=== PATIENT | male | born 1955 | race Caucasian/White ===

== ENCOUNTER 2020-03-01 23:26 | Inpatient (IN) | payer MEDICARE, SELFPAY ==
[2020-03-01 23:42] VITALS: BP 140/90; BP 95/50; PULSE 78; PULSE 99; RESP 24; TEMP 36.9; O2SAT 97
--- NOTE | 2020-03-01 23:59 | ECG_ITS ---
Test Reason : FEVER Blood Pressure : / mmHG Vent. Rate : 075 BPM Atrial Rate : 075 BPM P-R Int : 138 ms QRS Dur : 074 ms QT Int : 366 ms P-R-T Axes : 054 030 046 degrees QTc Int : 408 ms Normal sinus rhythm Nonspecific T wave abnormality Borderline ECG No previous ECGs available Referred By: Generic ED Physician Electronically Signed By:MANUELA HOFFMAN
--- NOTE | 2020-03-01 23:59 | XR_ITS ---
EXAMINATION: XR CHEST CLINICAL INFORMATION: SOB COMPARISON: 07/01/2018 TECHNIQUE: Frontal view of the chest was obtained. FINDINGS: EKG leads over the chest. Cardiac and mediastinal contours are normal. No focal consolidation, pneumothorax, or pleural effusion. Pulmonary vasculature is normal. No acute osseous findings. XR/XR chest 1V IMPRESSION: No acute pulmonary findings.
[2020-03-02] VITALS (11 sets, daily range): BP systolic 90–119; BP diastolic 54–68; PULSE 60–89; RESP 16–24; TEMP 36.7–37.6; O2SAT 96–100; BMI 28.3
--- NOTE | 2020-03-02 00:09 | PC.NURSE ---
Pt changed into hospital gown. EKG obtained by chief technical officer. All labs including BCX x 2 obtained and sent. CXR at bedside. Awaiting primary MD zarate.
[2020-03-02 00:15] LABS: Mean Corpuscular Hemoglobin 32.7 pg (27.0-33.0); Mean Platelet Volume 11.3 fL (9.4-12.4); PLT CLUMP 1
[2020-03-02 00:17] LABS: Hematocrit 40.4 % (42-52); Hemoglobin 14.4 g/dl (14.0-18.0); Mean Corpuscular HGB Conc 35.6 g/dl (31.0-36.0); Mean Corpuscular Volume 91.8 fL (80-98); Platelet Count 69 X10*3/uL (160-400); Red Cell Distribution Width 13.9 % (11.0-16.0); White Blood Count 13.8 X10*3/uL (4.8-10.8)
--- NOTE | 2020-03-02 00:28 | PC.NURSE ---
at bedside for primary eval.
--- NOTE | 2020-03-02 00:36 | ED_ITS ---
HPI - SOB/Dyspnea General Chief Complaint: Dyspnea Stated Complaint: sob Time Seen by Provider: 03/02/20 00:17 Source: patient Mode of arrival: ambulatory Limitations: no limitations History of Present Illness HPI Narrative: 64-year-old male who presents to the emergency department for evaluation shortness of breath, dyspnea exertion, fatigue and cough. The patient states he has been short of breath for approximately 3 days. States that the symptoms have been getting progressively worse. He states that he is feeling extremely fatigued. He has a cough which is productive of yellow sputum. He states that he does have dyspnea on exertion and he has to walk slowly, otherwise he gets very winded. He denied chest pain. He denies body aches. He denied diarrhea. He denied loss of sense of taste or smell. He does not have any known COVID-19 exposures. The patient does have COPD and he continues to smoke 2.5 packs per day times 50 years. He states that he has been using his inhalers more frequently but they have not been effective. Related Data Allergies Allergy/AdvReac Type Severity Reaction Status Date / Time No Known Allergies Allergy Verified 03/02/20 00:34 Review of Systems Review of Systems: Yes all other systems are reviewed and are negative Constitutional: Constitutional: Reports as per HPI Eyes: Eyes: Reports as per HPI ENT: Reports as per HPI Cardiovascular: Cardiovascular: Reports as per HPI Respiratory: Respiratory: Reports as per HPI Gastrointestinal: Gastrointestinal: Reports as per HPI Genitourinary: Genitourinary: Reports as per HPI Musculoskeletal: Musculoskeletal: Reports as per HPI Integumentary/Breasts: Skin/Breast: Reports as per HPI Neurologic: Reports as per HPI and Reports Abnormal speech present Psychiatric: Psychiatric: Reports as per HPI Allergic/Immunologic: Allergic/Immunologic: Reports as per HPI PMFSH Past Medical History [facility] Narrative: The patient is . He does smoke 2.5 packs of cigarettes per day times 50 years. He denies alcohol use. He does smoke marijuana. Medical History (Updated 03/02/20 @ 02:26 by Bryon Nino MD) Bipolar 1 disorder COPD (chronic obstructive pulmonary disease) Hyperlipemia Social History Social History Advance Directives: No Advance Directives Information Provided: No Physical Exam Vital Signs: Vital Signs: Last Vital Signs Temp 98.5 F 03/01/20 23:42 Pulse 89 03/02/20 01:43 Resp 16 03/02/20 01:43 BP 119/57 L 03/02/20 01:43 Pulse Ox 100 03/02/20 01:43 Body Mass Index 0.2 Const: General: cooperative, no acute distress, alert and awake O rientation/consciousness: oriented to person and oriented to place Limita tions: no limitations HENMT: Head: Yes normal to inspection, Yes normocephalic and Yes atraumatic Ears: external ears normal General nose exam: Normal external nose present Face and sinus: Yes normal facial exam Mouth: Normal oral and palatal mucosa present Throat: Yes posterior oropharynx normal Eyes: General: appearance normal, both eyes and all related structures Periorbital: periorbital findings normal Eyelids: Yes eyelids normal Conjunctivae: conjunctivae normal Sclerae: sclerae normal Corneas: corneas normal Pupils: Equal, round and reactive pupils present Direct Ophthalmoscopy: normal light reflex Neck: Neck: Yes normal visual inspection and Yes supple Lymphatic: no l ymphadenopathy noted Chest: Chest palpation & inspection: normal inspection of the chest and normal palpation of entire chest wall Resp: Effort & Inspection: normal respiratory effort, abnormal respiratory pattern, audible wheezes and no respiratory distress Auscultation: clear to auscultation bilaterally, no crackles, rales (Basis), no rhonchi and wheezes Cardio: Rate: regular rate Rhythm: regular rhythm Heart sounds: S1 normal heart sound present, S2 normal heart sound present and no murmurs GI: Inspection: No distended Palpation (GI): Soft to palpation, nontender, no guarding and No hepatosplenomegaly present Auscultation: normal bowel sounds : General: Yes no CVA tenderness Back/Spine/Pelvis: Back: no CVA tenderness Skin: General skin exam: no rashes or lesions noted Lesions: no lesions Rashes: no rashes Wounds: no wounds Neuro: General: oriented to person and oriented to place Cranial nerves: Yes CN's II-XII intact bilaterally and Yes Equal, round and reactive pupils present Cognition (Neuro): normal cognition Speech: Abnormal speech present Motor exam (neuro): 5/5 motor strength present throughout Extrem: General: Yes normal to inspection, Yes full ROM, Yes no pedal edema and Yes no calf tenderness Psych: Appearance: grossly normal Mental Status: mental status grossly normal Speech and movement: Clear speech present Affect: normal affect Thought process: Normal thought process present Course Course Course Narrative: 64-year-old male with a history of COPD, he continues to smoke 2.5 packs of cigarettes per day and marijuana daily who presents to the emergency department for evaluation of shortness of breath x3 days, dyspnea on exertion and a cough productive of yellow sputum. The patient's physical examination revealed that he was not hypoxic with an O2 saturation of 97% on room air. Does have an elevated respiratory rate of 24. The patient was afebrile. The patient's lung exam did reveal diffuse wheezing and rales at the bases. Septic workup was ordered on the patient. The patient was ordered to ge t an albuterol nebulizer treatment and Solu-Medrol 125 mg IV. 0205: The patient's laboratory evaluation [place] [address] with a 58 neutrophils and 30 bands, significant left shift. Patient's platelet count was 995[address]. Patient's sodium slightly low 128 with a low chloride of 94. ProBNP was slightly elevated at 1 9 9. Lactic acid was slightly elevated at 2.5. I did order a 30 milligrams/kilogram normal saline bolus on this patient. Chest x-ray does not reveal obvious pneumonia however given his presentation, clinically I suspect the patient may have pneumonia therefore he was given ceftriaxone 1 g IV and azithromycin 500 mg IV. I will discuss the patient's presentation with the covering hospitalist. 0225: I did discuss the patient's presentation with the covering hospitalist, and she accepted the patient onto the hospitalist service. The patient be managed on the medical floor. She requested that her respiratory viral panel be obtained to help further delineate possible infectious sources. MDM - SOB/Dyspnea Lab Data Result diagrams: 03/02/20 00:04 03/02/20 00:04 Labs: Lab Results 03/02/20 03/02/20 03/02/20 Range/Units 00:04 00:04 00:04 WBC 13.8 H (4.8-10.8) X10*3/uL RBC 4.40 L (4.60-5.80) X10*6/uL Hgb 14.4 (14.0-18.0) g/dl Hct 40.4 L (42-52) % MCV 91.8 (80-98) fL MCH 32.7 (27.0-33.0) pg MCHC 35.6 (31.0-36.0) g/dl RDW 13.9 (11.0-16.0) % Plt Count 69 L (160-400) X10*3/uL MPV 11.3 (9.4-12.4) fL Absolute Nucleated RBC 0.000 (0.0-0.012) X10*3/uL Nucleated RBC % (auto) 0.0 (0.0-0.2) /100WBC Neutrophils % (Manual) 58 (45-73) % Band Neutrophils % 30 H (3-5) % Lymphocytes % (Manual) 7 L (20-40) % Monocytes % (Manual) 5 (2-11) % Abs Neuts (Manual) 12.1 H (2.2-7.9) X10*3/uL Lymphocytes # (Manual) 1.0 (0.6-4.8) X10*3/uL Monocytes # (Manual) 0.7 (0.0-1.2) X10*3/uL Toxic Vacuolation PRESENT Platelet Estimate DECREASED (NORMAL) Plt Morphology Comment NORMAL RBC Morphology NORMAL Hold Blue Top SEE NOTE Sodium 128 L (135-145) mmol/L Potassium 3.8 (3.3-5.1) mmol/l Chloride 94 L (96-108) mmol/L Carbon Dioxide 23 (22-29) mmol/L Anion Gap 15 (12-20) BUN 23 H (9-16) mg/dL Creatinine 0.79 (0.5-1.4) mg/dL Estim Creat Clear Calc 98.6 Estimated GFR > 60 Random Glucose 119 H (60-115) mg/dL Lactic Acid (0.5-2.0) mmol/L Calcium 8.1 L (8.4-10.2) mg/dL Troponin I High Sens (<3.5-35.0) ng/L B-Natriuretic Peptide (<100) pg/mL COVID-19 ([facility]ISA) (Negative) COVID-19 Clin Com 03/02/20 03/02/20 03/02/20 Range/Units 00:04 00:04 00:49 WBC (4.8-10.8) X10*3/uL RBC (4.60-5.80) X10*6/uL Hgb (14.0-18.0) g/dl Hct (42-52) % MCV (80-98) fL MCH (27.0-33.0) pg MCHC (31.0-36.0) g/dl RDW (11.0-16.0) % Plt Count (160-400) X10*3/uL MPV (9.4-12.4) fL Absolute Nucleated RBC (0.0-0.012) X10*3/uL Nucleated RBC % (auto) (0.0-0.2) /100WBC Neutrophils % (Manual) (45-73) % Band Neutrophils % (3-5) % Lymphocytes % (Manual) (20-40) % Monocytes % (Manual) (2-11) % Abs Neuts (Manual) (2.2-7.9) X10*3/uL Lymphocytes # (Manual) (0.6-4.8) X10*3/uL Monocytes # (Manual) (0.0-1.2) X10*3/uL Toxic Vacuolation Platelet Estimate (NORMAL) Plt Morphology Comment RBC Morphology Hold Blue Top Sodium (135-145) mmol/L Potassium (3.3-5.1) mmol/l Chloride (96-108) mmol/L Carbon Dioxide (22-29) mmol/L Anion Gap (12-20) BUN (9-16) mg/dL Creatinine (0.5-1.4) mg/dL Estim Creat Clear Calc Estimated GFR Random Glucose (60-115) mg/dL Lactic Acid 2.5 H* (0.5-2.0) mmol/L Calcium (8.4-10.2) mg/dL Troponin I High Sens 14.2 (<3.5-35.0) ng/L B-Natriuretic Peptide 199 H (<100) pg/mL COVID-19 ([facility]ISA) Negative (Negative) COVID-19 Clin Com See Note Discharge Plan Discharge Clinical Impression: Acute exacerbation of chronic obstructive airways disease, Community acquired pneumonia Patient Disposition: Admitted As Inpatient
[2020-03-02 00:49] LABS: Band Neutrophils Percent 30 % (3-5); Lymphocytes Percent Manual 7 % (20-40); Monocytes Absolute Manual 0.7 X10*3/uL (0.0-1.2); Monocytes Percent Manual 5 % (2-11); Neutrophils Absolute Manual 12.1 X10*3/uL (2.2-7.9); Neutrophils Percent Manual 58 % (45-73)
[2020-03-02] MEDS: Albuterol Sulfate (0.083%) 2.5 MG/3 ML VIAL.NEB 5 MG INHALE ×2 (00:50→05:01)
[2020-03-02 00:51] LABS: Platelet Estimate DECREASED (NORMAL); Platelet Morphology Comment NORMAL; RBC Morphology NORMAL; Toxic Vacuolation PRESENT
--- NOTE | 2020-03-02 00:56 | PC.NURSE ---
Pt medicated per EMAR. Covid swab obtained and sent. RT at bedside for UPD.
[2020-03-02 00:57] LABS: B Type Natriuretic Peptide 199 pg/mL (<100); Troponin-I High Sensitivity 14.2 ng/L (<3.5-35.0)
[2020-03-02 01:17] LABS: Anion Gap 15 (12-20); Blood Urea Nitrogen 23 mg/dL (9-16); Calcium 8.1 mg/dL (8.4-10.2); Carbon Dioxide 23 mmol/L (22-29); Chloride 94 mmol/L (96-108); Creatinine Clr Calc Pharmacy 98.6; Estimated Glomerular Filt Rate > 60; Glucose Random 119 mg/dL (60-115); Potassium 3.8 mmol/l (3.3-5.1); Sodium 128 mmol/L (135-145)
[2020-03-02 01:23] LABS: COVID-19 Test Negative (Negative)
[2020-03-02 01:37] LABS: Lactic Acid 2.5 mmol/L (0.5-2.0)
[2020-03-02] MEDS: 0.9 % Sodium Chloride 2,245.29 ML 2245.29 ML IVCONT (01:46)
--- NOTE | 2020-03-02 01:59 | PC.NURSE ---
notified of critical lactic. IVF infusing per EMAR. VSS. Pt unable to provide urine sample at this time, pt to call when able to provide sample. Continue to monitor.
[2020-03-02] MEDS: Azithromycin 500 MG in 0.9 % Sodium Chloride 250 ML 125 MG IV (02:24)
[2020-03-02] MEDS: cefTRIAXone sodium 1 GM in 0.9 % Sodium Chloride 50 ML IV (02:24)
--- NOTE | 2020-03-02 02:28 | PC.NURSE ---
Second IV line established, ABX infusing per MAR. Pt reports some relief of SOB, O2 sat 98% on RA. VSS. Continue to monitor.
--- NOTE | 2020-03-02 02:49 | P.HPHOSP_ITS ---
History of Present Illness Date of Service: 03/02/20 Chief Complaint: Shortness of breath This is a 64-year-old male with past medical history of COPD, bipolar who presents to the hospital with complaints of shortness of breath. Patient reports that he also has cough and sputum production. His symptoms started 3 days ago, and have progressively worsened. He has some fever and chills, although he has not checked his temperature at home. He has no sick contacts or recent travel. No nausea or vomiting, no abdominal pain, no diarrhea constipation. No urinary symptoms. No orthopnea PND or lower extremity edema. On arrival to the ED hemodynamically stable with respiratory rate of 24, blood pressure of 95/50, improved to 140 2/72 at this time. Labs are significant for leukocytosis of 13.8, sodium 128, chloride of 94, BUN of 23, lactic acid of 2.5, BNP of 199. COVID-19 negative. Chest x-ray shows no acute pulmonary findings Past medical history: COPD, hyperlipidemia, bipolar disorder, tobacco use for Surgical history: Denies family history: Denies Social history: Comes from home, smokes a pack and half a day, reports that he quit on Friday, denies alcohol or illicit drug Review of Systems Review of Systems: Yes all other systems are reviewed and are negative Neurologic: Reports as per HPI and Reports Abnormal speech present FORMERLY [facility], 1928[facility]1983 Medical History Bipolar 1 disorder COPD (chronic obstructive pulmonary disease) Hyperlipemia Social History Advance Directives: No Advance Directives Information Provided: No Meds Allergies Allergy/AdvReac Type Severity Reaction Status Date / Time No Known Allergies Allergy Verified 03/02/20 00:34 Home Medications Medication Instructions Recorded Confirmed Type citalopram 30 mg PO BEDTIME 03/02/20 03/02/20 History divalproex 1,000 mg PO DAILY 03/02/20 03/02/20 History olanzapine 10 mg PO BEDTIME 03/02/20 03/02/20 History simvastatin 80 mg PO DAILY 03/02/20 03/02/20 History Physical Exam Vital Signs and Narrative: Vital Signs: Last Vital Signs Temp 98.4 F 03/02/20 02:44 Pulse 69 03/02/20 02:44 Resp 20 03/02/20 02:44 BP 142/72 H 03/02/20 02:44 Pulse Ox 98 03/02/20 02:44 Body Mass Index 0.2 Const: General: cooperative and no acute distress Orientation/consciousness: patient oriented x3 Eyes: General: appearance normal, both eyes and all related structures Pupils: Equal, round and reactive pupils present Resp: Other: Bilateral wheezing, tachypneic Cardio: Rate: regular rate Rhythm: regular rhythm GI: Palpation (GI): Soft to palpation Auscultation: normal bowel sounds Skin: General skin exam: no rashes or lesions noted Neuro: General: patient oriented x3 Cranial nerves: Yes Equal, round and reactive pupils present Cognition (Neuro): normal cognition Speech: Abnormal speech present Extrem: General: Yes normal to inspection and Yes no pedal edema Results Labs CBC and Chem 7: 03/02/20 00:04 03/02/20 00:04 Labs: Laboratory Results - last 24 hr 03/02/20 03/02/20 03/02/20 00:04 00:04 00:04 MCV 91.8 MCH 32.7 MCHC 35.6 RDW 13.9 Plt Count 69 L MPV 11.3 Absolute Nucleated RBC 0.000 Nucleated RBC % (auto) 0.0 Neutrophils % (Manual) 58 Band Neutrophils % 30 H Lymphocytes % (Manual) 7 L Monocytes % (Manual) 5 Abs Neuts (Manual) 12.1 H Lymphocytes # (Manual) 1.0 Monocytes # (Manual) 0.7 Toxic Vacuolation PRESENT Platelet Estimate DECREASED Plt Morphology Comment NORMAL RBC Morphology NORMAL Hold Blue Top SEE NOTE Anion Gap 15 Estim Creat Clear Calc 98.6 Estimated GFR > 60 Random Glucose 119 H Lactic Acid Calcium 8.1 L Troponin I High Sens B-Natriuretic Peptide COVID-19 ([facility]ISA) COVID-19 Clin Com 03/02/20 03/02/20 03/02/20 00:04 00:04 00:49 MCV MCH MCHC RDW Plt Count MPV Absolute Nucleated RBC Nucleated RBC % (auto) Neutrophils % (Manual) Band Neutrophils % Lymphocytes % (Manual) Monocytes % (Manual) Abs Neuts (Manual) Lymphocytes # (Manual) Monocytes # (Manual) Toxic Vacuolation Platelet Estimate Plt Morphology Comment RBC Morphology Hold Blue Top Anion Gap Estim Creat Clear Calc Estimated GFR Random Glucose Lactic Acid 2.5 H* Calcium Troponin I High Sens 14.2 B-Natriuretic Peptide 199 H COVID-19 ([facility]ISA) Negative COVID-19 Clin Com See Note Imaging Radiologist's Impressions: Impressions Chest X-Ray 03/01/20 23:59 IMPRESSION: No acute pulmonary findings. Assessment and Plan (1) Acute exacerbation of chronic obstructive airways disease: Status: Acute (2) Community acquired pneumonia: Qualifiers: Laterality: unspecified laterality Qualified Code(s): J18.9 - Pneumonia, unspecified organism Status: Acute (3) Hyponatremia: Status: Acute (4) Lactic acidosis: Status: Acute This is a 64-year-old male with past medical history of COPD who presents to the hospital with complaints of shortness of breath found to have COPD exacerbation as well as community-acquired pneumonia # dyspnea - COPD exacerbation complicated by community-acquired pneumonia -leukocytosis, lactic acidosis, cough, increased sputum production, as well as dyspnea on exertion -Has no orthopnea, PND, no lower extremity edema - no hypoxia Plan: -will start patient on ceftriaxone, azithromycin, Solu-Medrol 40 IV b.i.d., and DuoNeb scheduled and p.r.n. - follow blood cultures # COPD exacerbation - increased sputum production, increased dyspnea, increased cough - will start patient on antibiotics, DuoNebs, and Solu-Medrol -O2 supplement if required - COVID negative, and will obtain comprehensive viral panel # community-acquired pneumonia - chest x-ray is read as negative although there appears to be some infiltrate on my read, - given his symptoms as well as leukocytosis it is likely the patient has community-acquired pneumonia Plan: - will check for strep pneumo and Legionella antigens - IV antibiotics as above - Follow blood cultures # hyponatremia - unclear etiology, - no previous value to compare -will start patient on IV fluids and follow BMP - will obtain urine and serum osmolarity as well as urine sodium and creatinine # lactic acidosis - most likely secondary to above reasons -will start patient on fluids and follow lactic acid DVT prophylaxis: Lovenox
--- NOTE | 2020-03-02 02:56 | PC.NURSE ---
Med Rec completed at bedside with pt. cardiovascular tech to repeat lactic. VSS. Continue to monitor.
--- NOTE | 2020-03-02 03:11 | PC.NURSE ---
IVFs complete. forensic science technician at bedside to update VS and obtain repeat lactic.
[2020-03-02] MEDS: 0.9 % Sodium Chloride 1,000 ML 80 ML IVCONT ×2 (03:29→16:19)
[2020-03-02 03:32] LABS: Reflex Lactate? Lactic Acid Added
[2020-03-02 03:45] LABS: Adenovirus PCR Not Detected (Not Detect.); Bordetella parapertussis PCR Not Detected (Not Detect.); Bordetella pertussis PCR Not Detected (Not Detect.); Chlamydia pneumoniae PCR Not Detected (Not Detect.); Coronavirus 229E PCR Not Detected (Not Detect.); Coronavirus HKU1 PCR Not Detected (Not Detect.); Coronavirus NL63 PCR Not Detected (Not Detect.); Coronavirus OC43 PCR Not Detected (Not Detect.); Human metapneumovirus PCR Not Detected (Not Detect.); Influenza A PCR Not Detected (Not Detect.); Influenza B PCR Not Detected (Not Detect.); Mycoplasma pneumoniae PCR Not Detected (Not Detect.); Parainfluenza 1 PCR Not Detected (Not Detect.); Parainfluenza 2 PCR Not Detected (Not Detect.); Parainfluenza 3 PCR Not Detected (Not Detect.); Parainfluenza 4 PCR Not Detected (Not Detect.); RSV PCR Not Detected (Not Detect.); Rhino/Enterovirus PCR Not Detected (Not Detect.); SARS-CoV-2 PCR Not Detected (Not Detect.)
[2020-03-02 03:58] LABS: Osmolality, Serum 280 mosm/kg (281-305)
[2020-03-02 04:06] LABS: Glucose Urine UA NEG (NEG); Leukocyte Esterase Urine NEG (NEG); Nitrite Urine NEG (NEG); PH 6.5 (5.0-8.0); Urine Blood 1+ (NEG); Urine Ketones NEG (NEG); Urine Protein 1+ MG/DL (NEG-TRACE)
[2020-03-02 04:09] LABS: Appearance Urine HAZY; Color Urine AMBER
[2020-03-02 04:13] LABS: Granular Casts Urine 0-2 /LPF; Mucus Urine 2+ /LPF; Squamous Epithelial Cell Urine 1+ /LPF
--- NOTE | 2020-03-02 04:32 | PC.NURSE ---
Pt ringing his call noyola, requesting a breathing treatment. Pt speaking full sentences, in no acute distress. O2 sat 98% on RA. VSS. Hospitalist aware of pts request. VSS. Continue to monitor.
[2020-03-02 04:36] LABS: Osmolality Urine 896 mosm/kg (373-1093)
--- NOTE | 2020-03-02 05:00 | PC.NURSE ---
RT at bedside for UPD.
[2020-03-02 05:04] LABS: Creatinine Urine 240.64 mg/dL; Sodium Urine Random < 20.0 mmol/L
--- NOTE | 2020-03-02 05:25 | PC.NURSE ---
This RN calling IMC, [facility] unable to take report at this time.
--- NOTE | 2020-03-02 05:34 | PC.NURSE ---
Report given to JOSEPHINE, ARMIN. eeg technologist preparing pt for transport to floor.
[2020-03-02] MEDS: Enoxaparin Sodium 40 MG/0.4 ML SYRINGE SUBCUT (06:03)
--- NOTE | 2020-03-02 06:34 | PC.NURSE ---
PT TO [facility] [place]600AM, UPOND ADMISSION ASSESSMENT ASKING PT IF HE HAD ANY THOUGHTS OF HARMING SELF OR SOMEON ELSE - HE SAID THAT ON FRIDAY HE HAD THOUGHTS OF HARMING HIMSELF- NO PARTICULAR PLAN- BUT THAT HE HAD HAD ENOUGH OF THIS (MEANING FEELING SICK) AND FELT BRAINDEAD STATES DOESNT FEEL THAT WAY RIGHT NOW AND IS FEELING BETTER. 1:1 SITTER PLACED AT HIS BEDSIDE FOR SI PRECAUTIONS. NO THOUGHTS OF HARMING ANYONE ELSE,
--- NOTE | 2020-03-02 08:42 | MHC.CM.PN ---
CM was unable to reach Patient by phone (Covid Precautions); CM spoke with /HCP/Jessi @ [phone]. Patient lives in a house with his and he is functionally independent. The goal for dc is for Patient to return home and CM has initiated and will follow for dc planning. Patient's PCP is Dr. Benny Cordero.
[2020-03-02] MEDS: 0.9 % Sodium Chloride 1,000 ML 999 ML IVCONT (09:28)
--- NOTE | 2020-03-02 16:00 | PM.EVENT ---
Event Note Date of Service: 03/02/20 Event Note: Seen and examined, chart, labs, medication reviewed. here with copd exacerbation. and voiced suicidal ideation. To have sitter, continue copd treatment, no covid
[2020-03-02] MEDS: 0.9 % Sodium Chloride Flush 3 ML SYRINGE IVFLUSH (16:19)
[2020-03-02] MEDS: Albuterol/Iprat 2.5/0.5MG 3 ML AMPUL.NEB INHALE ×2 (16:31→20:05)
[2020-03-03] VITALS (7 sets, daily range): BP systolic 102–144; BP diastolic 56–76; PULSE 64–89; RESP 18–20; TEMP 36–37; O2SAT 95–99
[2020-03-03] MEDS: cefTRIAXone sodium 1 GM in 0.9 % Sodium Chloride 50 ML IV (01:54)
[2020-03-03] MEDS: Azithromycin 500 MG TABLET PO (01:54)
[2020-03-03 04:48] LABS: MANUAL DIFF FLAG NO
[2020-03-03 04:53] LABS: Basophils Percent Auto 0.2 % (0-2); Hematocrit 36.6 % (42-52); Imm Gran Abs Auto 0.06 X10*3/uL (0.00-0.03); Imm Gran Pct Auto 0.5 % (0.0-0.4); Lymphocytes Absolute Auto 0.8 X10*3/uL (1.2-4.9); Lymphocytes Percent Auto 6.8 % (20-40); Mean Corpuscular HGB Conc 35.5 g/dl (31.0-36.0); Mean Corpuscular Hemoglobin 32.9 pg (27.0-33.0); Mean Corpuscular Volume 92.7 fL (80-98); Mean Platelet Volume 12.9 fL (9.4-12.4); Neutrophils Absolute Auto 10.5 X10*3/uL (2.0-8.3); Neutrophils Percent Auto 84.5 % (45-73); Red Blood Count 3.95 X10*6/uL (4.60-5.80); Red Cell Distribution Width 14.6 % (11.0-16.0); White Blood Count 12.4 X10*3/uL (4.8-10.8)
[2020-03-03 04:58] LABS: Platelet Count 52 X10*3/uL (160-400)
[2020-03-03] MEDS: 0.9 % Sodium Chloride 1,000 ML 80 ML IVCONT (05:29)
[2020-03-03] MEDS: Enoxaparin Sodium 40 MG/0.4 ML SYRINGE SUBCUT (05:30)
[2020-03-03 05:31] LABS: Anion Gap 13 (12-20); Blood Urea Nitrogen 20 mg/dL (9-16); Calcium 7.8 mg/dL (8.4-10.2); Carbon Dioxide 22 mmol/L (22-29); Chloride 103 mmol/L (96-108); Creatinine Clr Calc Pharmacy 103.3; Estimated Glomerular Filt Rate > 60; Glucose Random 116 mg/dL (60-115); Potassium 4.5 mmol/l (3.3-5.1); Sodium 133 mmol/L (135-145)
[2020-03-03] MEDS: Nicotine 21 MG PATCH.TD24 TRANSDERMA (07:39)
[2020-03-03] MEDS: Albuterol/Iprat 2.5/0.5MG 3 ML AMPUL.NEB INHALE ×2 (08:38→11:38)
--- NOTE | 2020-03-03 11:52 | MHC.CM.PN ---
Male 64 COPD exacerbation. DC today to home, no services. Transportation provided by family.
--- NOTE | 2020-03-03 12:08 | P.DS_ITS ---
DS: Providers Provider Date of admission: 03/02/20 02:48 Primary care physician: Unknown Physician Consults: 03/03/20 11:36 Consult to Crisis Stat Reason for consultation: suicidal DS: Diagnosis Discharge Diagnosis (1) Acute exacerbation of chronic obstructive airways disease: Status: Acute (2) Community acquired pneumonia: Status: Acute (3) Hyponatremia: Status: Acute (4) Lactic acidosis: Status: Acute DS: Medications Discharge Medications Home Medications: Home Medications Medication Instructions Recorded Confirmed citalopram 30 mg PO BEDTIME 03/02/20 03/02/20 divalproex 1,000 mg PO DAILY 03/02/20 03/02/20 olanzapine 10 mg PO BEDTIME 03/02/20 03/02/20 simvastatin 80 mg PO DAILY 03/02/20 03/02/20 DS: Summary Hospital Course Hospital Course: 64-year-old male with past medical history of COPD, bipolar who presents to the hospital with complaints of shortness of breath. Patient reports that he also has cough and sputum production. His symptoms started 3 days ago, and have progressively worsened. He has some fever and chills, although he has not checked his temperature at home. He has no sick contacts or recent travel. No nausea or vomiting, no abdominal pain, no diarrhea constipation. No urinary symptoms. No orthopnea PND or lower extremity edema. On arrival to the ED hemodynamically stable with respiratory rate of 24, blood pressure of 95/50, improved to 140 2/72 at this time. Labs are significant for leukocytosis of 13.8, sodium 128, chloride of 94, BUN of 23, lactic acid of 2.5, BNP of 199. COVID-19 negative. Hospital course: patient was admitted for exacerbation of COPD and t[place]um[place], however CXR is clear and increase in WBC is likely from bronchitis. He, however, was Ceftriaxone and Azithromycin and [facility]. Will continue Prednisone for 5 days, and albuterol HFA and to stop smoking. He is feeling fine and will like to go home. It was documented that he was sucidial but he says he never meant it. He got sitter and will have crisis see him before discharge. He presently denies suicidal thought. He was seen and cleared by crisis team Time Spent with Patient Time attestation: Total time spent providing and/or coordinating discharge services: Discharge coordination time: Greater than 30 minutes Physical Exam Vital Signs: Vital Signs: Last Vital Signs Temp 98.6 F 03/03/20 12:00 Pulse 89 03/03/20 12:00 Resp 18 03/03/20 12:00 BP 127/56 L 03/03/20 12:00 Pulse Ox 98 03/03/20 12:00 Body Mass Index 28.3 General: AO X 3, no acute distress Resp: CTA bilateral CVS: S1,S2,RRR GI: +BS, NT, no distention Skin: No rash Neuro: motor grossly intact Psych: appropriate affect DS: Data Data Completed and Pending Labs on day of discharge: 03/01/20 23:59 ECG 12 lead EKG Stat Continuous Cardiac Monitoring NOW XR chest 1V Stat B Type Natriuretic Peptide Stat Basic Metabolic Panel Stat Hold Lt Blue - Possible Coag Stat Lactic Acid Stat Troponin-I High Sensitivity Stat 03/02/20 00:00 EKG Documentation DIRECTED 03/02/20 00:04 Complete Blood Count Man Dif Stat 03/02/20 00:34 Albuterol Sulfate (0.083%) [Ventolin (0.083%)] 5 mg INHALE ONCE ONE methylPREDNISolone Sod Succ/PF [SOLU-MedroL] 125 mg 0.9 % Sodium Chloride [Ns] 100 ml IV ONCE 03/02/20 00:38 methylPREDNISolone Sod Succ/PF [SOLU-MedroL] 125 mg .ROUTE .STK-MED ONE 03/02/20 00:49 COVID-19 ID NOW (Nieves) Stat 03/02/20 01:35 0.9 % Sodium Chloride [Ns] 2,245.29 ml IVCONT 2,245.29 mls/hr 03/02/20 02:03 Azithromycin [Zithromax] 500 mg 0.9 % Sodium Chloride [Ns] 250 ml IV ONCE cefTRIAXone sodium [Rocephin] 1 gm 0.9 % Sodium Chloride [Ns] 50 ml IV ONCE 03/02/20 02:12 Azithromycin [Zithromax] 500 mg IV .STK-MED ONE cefTRIAXone sodium [Rocephin] 1 gm .ROUTE .STK-MED ONE 03/02/20 02:45 Transfer Order Routine 03/02/20 03:14 Lactic Acid Stat Osmolality, Serum Stat 03/02/20 03:31 Respiratory Panel Stat 03/02/20 03:43 Creatinine Urine Stat Osmolality Urine Stat Sodium Urine Random Stat 03/02/20 04:50 Albuterol Sulfate (0.083%) [Ventolin (0.083%)] 5 mg INHALE ONCE ONE 03/02/20 09:00 0.9 % Sodium Chloride [Ns] 1,000 ml IVCONT 999 mls/hr 03/03/20 01:47 cefTRIAXone sodium [Rocephin] 1 gm .ROUTE .STK-MED ONE 03/03/20 04:32 Basic Metabolic Panel Routine Complete Blood Count Auto Diff Routine Laboratory Last Values WBC 12.4 X10*3/uL (4.8-10.8) H 03/03/20 04:32 RBC 3.95 X10*6/uL (4.60-5.80) L 03/03/20 04:32 Hgb 13.0 g/dl (14.0-18.0) L 03/03/20 04:32 Hct 36.6 % (42-52) L 03/03/20 04:32 MCV 92.7 fL (80-98) 03/03/20 04:32 MCH 32.9 pg (27.0-33.0) 03/03/20 04:32 MCHC 35.5 g/dl (31.0-36.0) 03/03/20 04:32 RDW 14.6 % (11.0-16.0) 03/03/20 04:32 Plt Count 52 X10*3/uL (160-400) L 03/03/20 04:32 MPV 12.9 fL (9.4-12.4) H 03/03/20 04:32 Immature Gran % (Auto) 0.5 % (0.0-0.4) H 03/03/20 04:32 Neut % (Auto) 84.5 % (45-73) H 03/03/20 04:32 Lymph % (Auto) 6.8 % (20-40) L 03/03/20 04:32 [place] % (Auto) 8.0 % (2-11) 03/03/20 04:32 Eos % (Auto) 0.0 % (0-4) 03/03/20 04:32 Baso % (Auto) 0.2 % (0-2) 03/03/20 04:32 Lymph # (Auto) 0.8 X10*3/uL (1.2-4.9) L 03/03/20 04:32 [place] # (Auto) 1.0 X10*3/uL (0.1-1.2) 03/03/20 04:32 Eos # (Auto) 0.0 X10*3/uL (0.0-0.4) 03/03/20 04:32 Baso # (Auto) 0.0 X10*3/uL (0.0-0.2) 03/03/20 04:32 Abs Immat Gran (auto) 0.06 X10*3/uL (0.00-0.03) H 03/03/20 04:32 Absolute Neuts (auto) 10.5 X10*3/uL (2.0-8.3) H 03/03/20 04:32 Absolute Nucleated RBC 0.000 X10*3/uL (0.0-0.012) 03/03/20 04:32 Nucleated RBC % (auto) 0.0 /100WBC (0.0-0.2) 03/03/20 04:32 Neutrophils % (Manual) 58 % (45-73) 03/02/20 00:04 Band Neutrophils % 30 % (3-5) H 03/02/20 00:04 Lymphocytes % (Manual) 7 % (20-40) L 03/02/20 00:04 Monocytes % (Manual) 5 % (2-11) 03/02/20 00:04 Abs Neuts (Manual) 12.1 X10*3/uL (2.2-7.9) H 03/02/20 00:04 Lymphocytes # (Manual) 1.0 X10*3/uL (0.6-4.8) 03/02/20 00:04 Monocytes # (Manual) 0.7 X10*3/uL (0.0-1.2) 03/02/20 00:04 Toxic Vacuolation PRESENT 03/02/20 00:04 Platelet Estimate DECREASED (NORMAL) 03/02/20 00:04 Plt Morphology Comment NORMAL 03/02/20 00:04 RBC Morphology NORMAL 03/02/20 00:04 Hold Blue Top SEE NOTE 03/02/20 00:04 Sodium 133 mmol/L (135-145) L 03/03/20 04:32 Potassium 4.5 mmol/l (3.3-5.1) 03/03/20 04:32 Chloride 103 mmol/L (96-108) 03/03/20 04:32 Carbon Dioxide 22 mmol/L (22-29) 03/03/20 04:32 Anion Gap 13 (12-20) 03/03/20 04:32 BUN 20 mg/dL (9-16) H 03/03/20 04:32 Creatinine 0.66 mg/dL (0.5-1.4) 03/03/20 04:32 Estim Creat Clear Calc 103.3 03/03/20 04:32 Estimated GFR > 60 03/03/20 04:32 Random Glucose 116 mg/dL (60-115) H 03/03/20 04:32 Osmolality 280 mosm/kg (281-305) L 03/02/20 03:14 Lactic Acid 2.0 mmol/L (0.5-2.0) 03/02/20 03:14 Calcium 7.8 mg/dL (8.4-10.2) L 03/03/20 04:32 Troponin I High Sens 14.2 ng/L (<3.5-35.0) 03/02/20 00:04 B-Natriuretic Peptide 199 pg/mL (<100) H 03/02/20 00:04 Urine Color ROBERT 03/02/20 03:43 Urine Appearance HAZY 03/02/20 03:43 Urine pH 6.5 (5.0-8.0) 03/02/20 03:43 Ur Specific [place] 1.020 (1.005-1.025) 03/02/20 03:43 Urine Protein 1+ MG/DL (NEG-TRACE) H 03/02/20 03:43 Urine Glucose (UA) NEG MG/DL (NEG) 03/02/20 03:43 Urine Ketones NEG MG/DL (NEG) 03/02/20 03:43 Urine Blood 1+ (NEG) H 03/02/20 03:43 Urine Nitrite NEG (NEG) 03/02/20 03:43 Ur Leukocyte Esterase NEG (NEG) 03/02/20 03:43 Urine RBC 10-14 /HPF (0) H 03/02/20 03:43 Urine WBC 1-4 /HPF (0-4) 03/02/20 03:43 Ur Squamous Epith Cells 1+ /LPF 03/02/20 03:43 Urine Bacteria NONE /LPF 03/02/20 03:43 Granular Casts 0-2 /LPF 03/02/20 03:43 Urine Mucus 2+ /LPF 03/02/20 03:43 Urine Osmolality 896 mosm/kg (373-1093) 03/02/20 03:43 Ur Random Sodium < 20.0 mmol/L 03/02/20 03:43 Urine Creatinine 240.64 mg/dL 03/02/20 03:43 Respiratory Panel Angel See Note 03/02/20 03:31 Adenovirus (Rapid PCR) Not Detected (Not Detect.) 03/02/20 03:31 B.pert (TEM-PCR) Not Detected (Not Detect.) 03/02/20 03:31 B.parapertussis DNA PCR Not Detected (Not Detect.) 03/02/20 03:31 C. pneumoniae DNA (PCR) Not Detected (Not Detect.) 03/02/20 03:31 Coronavirus OC43 (PCR) Not Detected (Not Detect.) 03/02/20 03:31 Coronavirus HKU1 (PCR) Not Detected (Not Detect.) 03/02/20 03:31 Coronavirus 229E (PCR) Not Detected (Not Detect.) 03/02/20 03:31 COVID-19 (MELLISA) Negative (Negative) 03/02/20 00:49 COVID-19 Clin Com See Note 03/02/20 00:49 Coronavirus NL63 (PCR) Not Detected (Not Detect.) 03/02/20 03:31 Human Metapneumovir PCR Not Detected (Not Detect.) 03/02/20 03:31 Influenza A (RT-PCR) Not Detected (Not Detect.) 03/02/20 03:31 Influenza B (RT-PCR) Not Detected (Not Detect.) 03/02/20 03:31 M. pneumoniae (PCR) Not Detected (Not Detect.) 03/02/20 03:31 Parainfluenza 1 (PCR) Not Detected (Not Detect.) 03/02/20 03:31 Parainfluenza 2 (PCR) Not Detected (Not Detect.) 03/02/20 03:31 Parainfluenza 3 (PCR) Not Detected (Not Detect.) 03/02/20 03:31 Parainfluenza 4 (PCR) Not Detected (Not Detect.) 03/02/20 03:31 RSV (PCR) Not Detected (Not Detect.) 03/02/20 03:31 Entero/Rhino (PCR) Not Detected (Not Detect.) 03/02/20 03:31 SARS-CoV-2 RNA (RT-PCR) Not Detected (Not Detect.) 03/02/20 03:31 Preliminary micro results at discharge 03/02/20 00:04 Blood Culture - Preliminary Blood - Venous No growth after 24 hours. 03/02/20 00:04 Blood Culture - Preliminary Blood - Venous No growth after 24 hours. Discharge Plan Discharge Anticipated Discharge Date/Time: 03/03/20 11:39 Patient Disposition: Home, Self-Care Referrals: Physician,Unknown [Primary Care Provider] - Discharge Medications: New azithromycin 500 mg Tablet 500 mg PO Q24H Qty: 3 RF: 0 albuterol sulfate [ProAir HFA] 90 mcg/actuation HFA aerosol inhaler 2 puff inhalation Q6H PRN (Reason: shortness of breath or wheezing) Qty: 18 RF: 0 prednisone 20 mg tablet 40 mg PO DAILY Qty: 8 RF: 0 Continued olanzapine 10 mg tablet 10 mg PO BEDTIME RF: 0 simvastatin 80 mg tablet 80 mg PO DAILY RF: 0 citalopram 20 mg tablet 30 mg PO BEDTIME RF: 0 divalproex 500 mg tablet extended release 24 hr 1,000 mg PO DAILY RF: 0 Discharge Orders: Discharge Order (Routine); Ordered 03/03/20 Ordered By: Wesley Alfonso Diet: advance to usual diet Activity on Discharge: As tolerated Visit Report Forms: Patient Portal Discharge page Care Plan Goals: copd exacerbation Health Concerns: smoking Plan of Treatment: Take Azithro for bronchitis, steroid for copd and continue inhalers, stop smoking and follow up with your Docotor in a week
--- NOTE | 2020-03-03 12:49 | MHC.CARE ---
CARE Team consulted with Juan Diego. He denies SI/HI reported he had made a comment initially due to him being frustrated due to his medical conditions. He stated he wants to be back with his home. He mentioned he has OP services and a med provider whom he follows up with them on a weekly base. No concerns currently and will be safe to be discharged back home.
--- NOTE | 2020-03-04 15:55 | PM.EVENT ---
Event Note Date of Service: 03/04/20 Event Note: I was called by the Microbiology lab for positive blood culture from 03/02/20 00:10 1/2 growing GNRs in anaerobic bottle Pt was admitted 03/02 for COPD exac and discharged yesterday on azithromycin + prednisone He feels well and denies fever, chills, abd pain, or diarrhea Regardless, in my medical opinion he needs to be admitted for IV antibiotics pending definitive identification of this bacteria I reached the patient at the listed number and advised him to come in through the ED. He agrees to come this evening.
[2020-03-05 21:13] LABS: Strep Pneumo Ag urine Not Detected (Not Detected)
[2020-03-09 23:23] LABS: Legionella Ag Urine Not Detected (Not Detected)
== END 2020-03-03 14:29 | disposition home or self-care (01) | DRG 190 ==
LOC: HO.ED 03-02 02:26 → HO.IMC 03-02 05:04
PROVIDERS: Admitting Provider Internal Medicine; Emergency Provider Emergency Medicine Emergency Medical Services; Visit Provider Internal Medicine
DX: J44.0 Chronic obstructive pulmonary disease with (acute) lower respiratory infection (principal); J18.9 Pneumonia, unspecified organism; E87.1 Hypo-osmolality and hyponatremia; E87.2 Acidosis; R45.851 Suicidal ideations; J44.1 Chronic obstructive pulmonary disease with (acute) exacerbation; F17.210 Nicotine dependence, cigarettes, uncomplicated; Z71.6 Tobacco abuse counseling; Z20.828 Contact with and (suspected) exposure to other viral communicable diseases; F31.9 Bipolar disorder, unspecified; E78.5 Hyperlipidemia, unspecified; Z79.899 Other long term (current) drug therapy
CPT/HCPCS: 36415; 71045; 80048; 81001; 83605; 83880; 83930; 83935; 84300; 84484; 85007; 85025; 85027; 87040; 87449; 87633; 87635; 87899; 93005; 94640; 96361; 96365; 96366; 96367; 96375; 99285; J0456; J0696; J1650; J2920; J2930

== ENCOUNTER 2020-03-04 16:42 | Inpatient (IN) | payer MEDICARE, SELFPAY ==
--- NOTE | 2020-03-04 | CT_ITS ---
EXAMINATION: CT ABDOMEN AND PELVIS WITH CONTRAST CLINICAL INFORMATION: Bacteremia. COMPARISON: None TECHNIQUE: Multidetector volumetric images were obtained from the superior aspect of the liver through the pubic symphysis following administration 85 mL of Omnipaque 350 intravenous contrast. Sagittal and coronal reformatted images were obtained on the technologist's workstation. Oral Contrast: No. This CT examination was performed using dose optimization techniques as appropriate, variously including the following: *Automated exposure control. *Adjustment of mA and/or kV according to patient size (this includes techniques or standardized protocols for targeted exams where dose is matched to indication/reason for exam; i.e. extremities or head). *Use of iterative reconstruction technique. DLP: 471 mGy-cm FINDINGS: LUNG BASES: Trace bilateral pleural effusions. LIVER, GALLBLADDER, AND BILIARY TREE: The liver is normal in size, shape, and attenuation. No focal hepatic lesion or biliary ductal dilatation is present. Circumferential gallbladder wall thickening with mild adjacent edema, which can be seen in the setting of acute cholecystitis. PANCREAS: Unremarkable. SPLEEN: Unremarkable. ADRENAL GLANDS: Unremarkable. KIDNEYS AND URETERS: The kidneys are normal in size, shape, and attenuation. Left renal subcentimeter hypodensities, too small to characterize. Peripheral 0.2 cm calcification within the medial left midpole. Nonspecific bilateral perinephric stranding, left greater than right. No hydronephrosis or hydroureter. BLADDER: Unremarkable. No wall thickening or associated mass. No soft tissue stranding. GASTROINTESTINAL TRACT: No bowel wall thickening or associated inflammatory change. No small or large bowel obstruction. Unremarkable appendix. PERITONEAL CAVITY: Trace pelvic free fluid. No intra-abdominal free air. No intra-abdominal mass or fluid collection/abscess formation. ABDOMINAL WALL: No significant hernia is appreciated. LYMPH NODES: No significant lymphadenopathy. VASCULAR: Severe atherosclerotic calcifications throughout the abdominal aorta and its branch vessels. Partially obstructing plaque within the infrarenal abdominal aorta measuring up to 0.9 cm in width. Unremarkable IVC. PELVIC VISCERA: The prostate and seminal vesicles are unremarkable. OSSEOUS STRUCTURES: No concerning lytic or blastic osseous lesion. Multilevel degenerative disc disease, most prominent at L5-S1. CT/CT abdomen pelvis w con IMPRESSION: 1. Circumferential gallbladder wall thickening with mild adjacent stranding, which can be seen in the setting of acute cholecystitis. No intrahepatic or extrahepatic biliary ductal dilatation. 2. Nonspecific bilateral perinephric stranding, left greater than right. Minimal pyelonephritis could be considered in the appropriate clinical setting. No hydronephrosis or hydroureter. Unremarkable urinary bladder. 3. Trace pelvic free fluid. No intra-abdominal fluid collection or abscess formation. 4. No bowel wall thickening or associated inflammatory change. No small or large bowel obstruction. Unremarkable appendix. 5. Severe atherosclerotic disease within the abdominal aorta with prominent intramural plaques involving greater than 50% of the infrarenal abdominal aortic lumen. 6. Trace bilateral pleural effusions.
[2020-03-04 17:00] VITALS: BP 139/70; PULSE 70; RESP 20; TEMP 36.8; O2SAT 95; BMI 28.3
--- NOTE | 2020-03-04 17:06 | ED.RECABL ---
HPI - Recheck/Abnormal Lab/Rx General Chief Complaint: Recheck/Abnormal Lab/Rx Stated Complaint: abnormal labs Time Seen by Provider: 03/04/20 16:59 Source: patient History of Present Illness HPI narrative: 64-year-old male with past medical history of COPD, bipolar who presents to the ED s/p recent admission to [facility] on 03/02 for COPD exacerbation discharged yesterday on Azithromycin + Prednisone, however, called back today for positive blood culture from 03/02/20 1/2 growing GNRs in anaerobic bottle. Patient reports compliance with newly prescribed medications. Denies symptoms at present. Reports chronic SOB, unchanged. Denies fever, chills, CP, abdominal pain, nausea/vomiting, LE edema, history of clots, recent travel Related Data Home Medications Medication Instructions Recorded Confirmed citalopram 30 mg PO BEDTIME 03/02/20 03/02/20 divalproex 1,000 mg PO DAILY 03/02/20 03/02/20 olanzapine 10 mg PO BEDTIME 03/02/20 03/02/20 simvastatin 80 mg PO DAILY 03/02/20 03/02/20 Previous Rx's Medication Instructions Recorded albuterol sulfate [ProAir HFA] 2 puff INHALATION Q6H PRN #18 g 03/03/20 azithromycin 500 mg PO Q24H #3 tab 03/03/20 prednisone 40 mg PO DAILY #8 tab 03/03/20 Allergies Allergy/AdvReac Type Severity Reaction Status Date / Time No Known Allergies Allergy Verified 03/02/20 00:34 Review of Systems Review of Systems: Constitutional: No Weight loss, No Fever, No Chills Cardiovascular: No Chest Pain, Chronic SOB, No Dyspnea on Exertion, No Edema, No Palpitations Respiratory: No Cough, No Sputum, No Wheezing, No Smoke Exposure, No Dyspnea Gastrointestinal: No Nausea, No Vomiting, No Diarrhea, No Abdominal pain Genitourinary: No irregular bleeding, No Dysuria, No Urinary Frequency, No Hematuria Musculoskeletal: No joint pain, No Myalgias, No Joint Swelling Skin: No Skin Lesions, No rash Yes all other systems are reviewed and are negative [facility] Past Medical History Attestation statement: The following information was validated with the patient. Medical History Bipolar 1 disorder COPD (chronic obstructive pulmonary disease) Hyperlipemia Social History Social History Household Members: Spouse Housing: House Smoking Status: Current every day smoker Tobacco Type: Cigarette Packs Per Day: 2.5 Cigarettes Per Day: 50.0 Substance Use Type: Marijuana Advance Directives: No Advance Directives Information Provided: No service: No Current occupational status: retired Physical Exam Vital Signs: Vital Signs: Last Vital Signs Temp 98.2 F 03/04/20 17:00 Pulse 70 03/04/20 17:00 Resp 20 03/04/20 17:00 BP 139/70 03/04/20 17:00 Pulse Ox 95 03/04/20 17:00 Body Mass Index 28.3 Const: General: cooperative and healthy appearing Orientation/consciousness: patient oriented x3 Limitations: no limitations HENMT: Head: Yes normal to inspection Ears: hearing grossly normal bilaterally General nose exam: Normal external nose present Face and sinus: Yes normal facial exam Eyes: General: appearance normal, both eyes and all related structures EOM: EOMs intact bilaterally Neck: Neck: Yes normal visual inspection Resp: Other: Coarse sounds bibasilarly Effort & Inspection: normal respiratory effort Auscultation: clear to auscultation bilaterally and wheezes (Bibasilar) expiratory wheezes Cardio: Rate: regular rate Heart sounds: S1 normal heart sound present and S2 normal heart sound present GI: Inspection: Yes normal to inspection Palpation (GI): Soft to palpation, nontender, no guarding and not rigid Skin: Rashes: no rashes Wounds: no wounds Neuro: General: patient oriented x3 Gait exam (Neuro): Normal gait present Extrem: Other: no LE edema or calf ttp General: Yes normal to inspection MDM - Recheck/Abnormal Lab/Rx MDM Narrative Medical decision making narrative: 64-year-old male with past medical history of COPD, bipolar who presents to the ED s/p recent admission to [facility] [place] on 03/02 for COPD exacerbation discharged yesterday on Azithromycin + Prednisone, however, called back today for positive blood culture from 03/02/20 1/2 growing GNRs in anaerobic bottle On exam VS, NAD/well-appearing, lungs with bibasilar expiratory wheeze and coarse lung sounds. Nontoxic appearing. Unknown bacteremic source. Case discussed with hospitalist. Will initiate IV Zosyn, repeat labs/blood cultures/lactic and admit Discharge Plan Discharge Clinical Impression: Bacteremia, COPD (chronic obstructive pulmonary disease) Patient Disposition: Admitted As Inpatient Prescriptions: No Action olanzapine 10 mg tablet 10 mg PO BEDTIME RF: 0 simvastatin 80 mg tablet 80 mg PO DAILY RF: 0 citalopram 20 mg tablet 30 mg PO BEDTIME RF: 0 divalproex 500 mg tablet extended release 24 hr 1,000 mg PO DAILY RF: 0 azithromycin 500 mg Tablet 500 mg PO Q24H Qty: 3 RF: 0 albuterol sulfate [ProAir HFA] 90 mcg/actuation HFA aerosol inhaler 2 puff inhalation Q6H PRN (Reason: shortness of breath or wheezing) Qty: 18 RF: 0 prednisone 20 mg tablet 40 mg PO DAILY Qty: 8 RF: 0
--- NOTE | 2020-03-04 17:11 | ECG_ITS ---
Test Reason : ABNORMAL LABS Blood Pressure : / mmHG Vent. Rate : 061 BPM Atrial Rate : 061 BPM P-R Int : 126 ms QRS Dur : 074 ms QT Int : 408 ms P-R-T Axes : 064 052 042 degrees QTc Int : 410 ms Normal sinus rhythm Normal ECG When compared with ECG of 01-MAR-2020 23:58, Nonspecific T wave abnormality no longer evident in Lateral leads Referred By: Corine Escalona Electronically Signed By:MANUELA HOFFMAN
[2020-03-04] MEDS: Albuterol/Iprat 2.5/0.5MG 3 ML AMPUL.NEB INHALE (17:41)
[2020-03-04 17:46] VITALS: PULSE 60; O2SAT 96
[2020-03-04] MEDS: Piperacillin Sodium/Tazobactam 3.375 GM in 0.9 % Sodium Chloride 50 ML IV ×2 (17:55→22:08)
--- NOTE | 2020-03-04 17:56 | PM.IMHP ---
History of Present Illness Date of Service: 03/04/20 Chief Complaint: bacteremia This is a 64-year-old male who was recently admitted for COPD exacerbation. He was discharged home yesterday (03/03) with azithromycin and prednisone. Today the lab called with 1/2 blood cultures growing Gram-negative rods in anaerobic bottle. He was called and asked to return to the hospital. He denies any fever, chills, abdominal pain, diarrhea, urinary symptoms. His breathing has improved, he has been eating well and he has no specific complaints at this time. Lab work pending at this time. He will be admitted for further management of bacteremia. Review of Systems Review of Systems: Yes all other systems are reviewed and are negative Constitutional: Constitutional: Denies chills and Denies fever(s) Cardiovascular: Cardiovascular: Denies chest pain and Denies dyspnea Respiratory: Respiratory: Denies dyspnea Gastrointestinal: Gastrointestinal: Denies abdominal pain, Denies diarrhea, Denies nausea and Denies vomiting Genitourinary: Genitourinary: Denies dysuria and Denies urinary frequency [facility] Medical History Bipolar 1 disorder COPD (chronic obstructive pulmonary disease) Hyperlipemia Functional capacity: independent ambulation Family history: reviewed and not pertinent Surgical History (Updated 03/04/20 @ 18:01 by JUNAID Edmonds) No history of previous surgery Social History (Updated 03/04/20 @ 18:02 by JUNAID Edmonds) Household Members: Spouse Housing: House Alcohol intake: never Smoking Status: Former smoker Tobacco Type: Cigarette Packs Per Day: 1.5 Cigarettes Per Day: 50.0 Smoking Quit Date: 5 days ago Use of substances other than those prescribed or required for medical reasons: No Advance Directives: No Advance Directives Information Provided: No service: No Current occupational status: retired [employer] Allergies Allergy/AdvReac Type Severity Reaction Status Date / Time No Known Allergies Allergy Verified 03/02/20 00:34 Home Medications Medication Instructions Recorded Confirmed Type citalopram 30 mg PO BEDTIME 03/02/20 03/04/20 History divalproex 1,000 mg PO DAILY 03/02/20 03/04/20 History olanzapine 10 mg PO BEDTIME 12/10/20 12/12/20 History simvastatin 80 mg PO DAILY 03/02/20 03/04/20 History Physical Exam Vital Signs and Narrative: Vital Signs: Last Vital Signs Temp 98.2 F 03/04/20 17:00 Pulse 60 03/04/20 17:46 Resp 20 03/04/20 17:00 BP 139/70 03/04/20 17:00 Pulse Ox 95 03/04/20 17:00 Body Mass Index 28.3 Const: Nutritional Appearance: well nourished Orientation/consciousness: patient oriented x3 HENMT: Head: Yes normocephalic and Yes atraumatic Eyes: Sclerae: sclerae normal Chest: Chest palpation & inspection: normal inspection of the chest Resp: Other: prolonged expiratory phase, expiratory rhonchi Effort & Inspection: normal respiratory effort and no respiratory distress Cardio: Rate: regular rate Rhythm: regular rhythm GI: Palpation (GI): Soft to palpation and nontender Skin: General skin exam: no rashes or lesions noted Neuro: General: patient oriented x3 Cranial nerves: Yes CN's II-XII intact bilaterally and Yes Bilaterally intact EOM present Extrem: General: Yes normal to inspection Results Labs CBC and Chem 7: 03/04/20 18:35 03/04/20 17:31 Labs: Laboratory Results - last 24 hr 03/04/20 17:30 Hold Blue Top SEE NOTE Assessment and Plan (1) Bacteremia: Status: Acute This is a 64-year-old male history of COPD, bipolar disorder, dyslipidemia, recent admission for COPD exacerbation discharged home 03/03/2020 who was called to return to the hospital after 1/2 blood cultures were growing GNRs GNR bacteremia Now 2/2 BCx positive GNR -CT scan of abdomen, UA -IV zosyn -ID consult -repeat BCx COPD continue azithromycin and prednisone prn breathing treatments Bipolar disorder Continue citalopram, Depakote, olanzapine HLD Continue simvastatin TCP Follow CBC transaminitis hepaitis profile follow LFTs DVT prophylaxis-boots due to thombocytopenia Code status-full code This case was discussed with Dr. Delong
[2020-03-04 17:58] LABS: COVID-19 Test Negative (Negative)
[2020-03-04 18:04] LABS: Lactic Acid 1.2 mmol/L (0.5-2.0)
[2020-03-04 18:07] LABS: Anion Gap 14 (12-20); Blood Urea Nitrogen 23 mg/dL (9-16); Calcium 8.6 mg/dL (8.4-10.2); Carbon Dioxide 28 mmol/L (22-29); Chloride 101 mmol/L (96-108); Creatinine Clr Calc Pharmacy 89.7; Estimated Glomerular Filt Rate > 60; Glucose Random 105 mg/dL (60-115); Potassium 4.6 mmol/l (3.3-5.1); Sodium 138 mmol/L (135-145)
[2020-03-04 18:14] LABS: B Type Natriuretic Peptide 403 pg/mL (<100)
[2020-03-04 18:29] LABS: Alanine Aminotransferase 130 U/L (0-40); Albumin Level 3.3 g/dL (3.5-5.0); Alkaline Phosphatase 76 U/L (39-117); Aspartate Amino Transferase 97 U/L (5-37); Bilirubin Direct 0.3 mg/dL (0.0-0.5); Bilirubin Total 0.5 mg/dL (0.0-1.0); Magnesium 2.2 mg/dL (1.6-2.6); Total Protein 6.1 g/dL (6.5-8.0)
[2020-03-04 18:40] LABS: MANUAL DIFF FLAG NO
[2020-03-04 18:42] LABS: Basophils Percent Auto 0.2 % (0-2); Hematocrit 43.8 % (42-52); Hemoglobin 15.3 g/dl (14.0-18.0); Imm Gran Abs Auto 0.09 X10*3/uL (0.00-0.03); Imm Gran Pct Auto 0.9 % (0.0-0.4); Lymphocytes Absolute Auto 1.6 X10*3/uL (1.2-4.9); Lymphocytes Percent Auto 15.7 % (20-40); Mean Corpuscular HGB Conc 34.9 g/dl (31.0-36.0); Mean Corpuscular Hemoglobin 32.3 pg (27.0-33.0); Mean Corpuscular Volume 92.4 fL (80-98); Mean Platelet Volume 12.2 fL (9.4-12.4); Neutrophils Absolute Auto 7.3 X10*3/uL (2.0-8.3); Neutrophils Percent Auto 73.2 % (45-73); Platelet Count 107 X10*3/uL (160-400); Red Blood Count 4.74 X10*6/uL (4.60-5.80); Red Cell Distribution Width 14.7 % (11.0-16.0); White Blood Count 9.9 X10*3/uL (4.8-10.8)
--- NOTE | 2020-03-04 18:50 | PM.EVENT ---
Event Note Date of Service: 03/04/20 Event Note: addendum to H+P by JUNAID Nicholson I interviewed and examined the patient. I discussed their presentation and management with the mid-level provider. I reviewed the history and physical and agree with the documentation, with the following additions and corrections: 64yo M with COPD just discharged yesterday after being admitted 03/02/20 for COPD exacerbation called back due to BCx turning positive around 60 hr, initially 1/2 GNRs in anaerobic bottle but now 2/2 pt feels absoutely well never had C-scope denies abd pain, nausea, vomiting, or diarrhea denies dysuria, urinary urgency, retention or decreased stream on exam, he has some soft exp wheezes at bases abd is completely soft/NT, no CVAT either he is not septic WBC 9.9 plt 107 but were only 52 yesterday AST 97, ALT 130 impression: bacteremia, Gm- vs anaerobic transaminasemia thrombocytopenia plan: admit to M/S cover Gm-/anearobes with pip/juanita IV- check UA/UM/UCx, CT A/P, ID consult, follow BCx continue COPD exac treatment with prednisone + azithro + prn nebs check HBV/HCV
[2020-03-04] MEDS: iohexoL 350 MG/ML 100 ML INFUS..BTL IV (19:33)
[2020-03-04] MEDS: Azithromycin 500 MG TABLET PO (19:50)
[2020-03-04] MEDS: Atorvastatin Calcium 40 MG TABLET PO (22:08)
[2020-03-04] MEDS: Escitalopram Oxalate 5 MG TABLET 15 MG PO (22:08)
[2020-03-04] MEDS: 0.9 % Sodium Chloride Flush 3 ML SYRINGE IVFLUSH (22:09)
[2020-03-04] MEDS: OLANZapine 10 MG TABLET PO (22:09)
[2020-03-05] VITALS: BP 137/75; PULSE 58; RESP 20; TEMP 36.5; O2SAT 96
[2020-03-05] MEDS: Piperacillin Sodium/Tazobactam 3.375 GM in 0.9 % Sodium Chloride 50 ML IV ×4 (04:03→21:28)
[2020-03-05 08:00] VITALS: BP 142/81; PULSE 59; RESP 16; TEMP 36.9; O2SAT 94
[2020-03-05 08:04] LABS: Alanine Aminotransferase 101 U/L (0-40); Albumin Level 2.8 g/dL (3.5-5.0); Alkaline Phosphatase 56 U/L (39-117); Aspartate Amino Transferase 60 U/L (5-37); Bilirubin Direct 0.3 mg/dL (0.0-0.5); Bilirubin Total 0.7 mg/dL (0.0-1.0); Total Protein 5.1 g/dL (6.5-8.0)
--- NOTE | 2020-03-05 08:48 | MHC.CM.PN ---
CM spoke with /HCP/Jessi (COVID precautions). Patient lives in a house with his and he is functionally independent. Goal for dc is to return home and CM will follow for dc planning and possible need for VNA referral. CM has initiated and will follow for dc planning. IMM addressed with Jessi and will be mailed out certified letter to her and a copy has been placed on the chart. PCP is Dr. Benny Cordero.
[2020-03-05 09:11] LABS: Imm Gran Abs Auto 0.14 X10*3/uL (0.00-0.03); Imm Gran Pct Auto 1.2 % (0.0-0.4); MANUAL DIFF FLAG SCAN; Mean Corpuscular HGB Conc 34.7 g/dl (31.0-36.0); Neutrophils Percent Auto 45.4 % (45-73); PLT CLUMP 1; SCAN SMEAR FLAG 1
[2020-03-05 09:13] LABS: Basophils Percent Auto 0.2 % (0-2); Eosinophils Absolute Auto 0.1 X10*3/uL (0.0-0.4); Eosinophils Percent Auto 0.5 % (0-4); Hematocrit 43.2 % (42-52); Lymphocytes Absolute Auto 4.6 X10*3/uL (1.2-4.9); Lymphocytes Percent Auto 38.4 % (20-40); Mean Corpuscular Hemoglobin 32.4 pg (27.0-33.0); Mean Corpuscular Volume 93.3 fL (80-98); Mean Platelet Volume 12.4 fL (9.4-12.4); Monocytes Absolute Auto 1.7 X10*3/uL (0.1-1.2); Monocytes Percent Auto 14.3 % (2-11); Neutrophils Absolute Auto 5.4 X10*3/uL (2.0-8.3); Platelet Count 112 X10*3/uL (160-400); Red Blood Count 4.63 X10*6/uL (4.60-5.80); Red Cell Distribution Width 14.9 % (11.0-16.0); White Blood Count 11.8 X10*3/uL (4.8-10.8)
[2020-03-05] MEDS: 0.9 % Sodium Chloride Flush 3 ML SYRINGE IVFLUSH ×2 (09:51→16:36)
[2020-03-05] MEDS: predniSONE 20 MG TABLET 40 MG PO (09:51)
[2020-03-05] MEDS: Divalproex Sodium ER 500 MG TAB.ER.24H 1000 MG PO (09:51)
[2020-03-05 09:59] LABS: SLIDE REVIEW VERIFIED
--- NOTE | 2020-03-05 11:10 | P.CONGS_ITS ---
History of Present Illness Consult details Consult date: 03/05/20 Reason for consult: other (Possible cholecystitis) Requesting physician: Rohith Delong Narrative: This is a 64-year-old gentleman with a history of COPD who was called back to the hospital for admission after blood cultures demonstrated gram- negative rods in 2/2 bottles. Further identification is pending. He reports that he began feeling ill about a week ago. He had generalized weakness, shortness of breath, fatigue and difficulty sleeping. He does not report any fever, chills, nausea, vomiting or abdominal pain. He was evaluated in the emergency department and was admitted early on 03/02/2020 for treatment of exacerbation of COPD and of community acquired pneumonia. He was discharged on 03/03/2020 to complete a course of Zithromax and steroid taper. He does not report any new symptoms since discharge. Shortness of breath is improved from the time of his initial admission. CT scan of the abdomen and pelvis was obtained and demonstrated some thickening of the gallbladder wall with mild adjacent edema raising the possibility of cholecystitis. Gallstones were not evident on the CT scan. Laboratory studies on admission demonstrated an initially normal white blood count of 9.9. White blood count is 11.8 this morning. AST and ALT are somewhat elevated at 60 and 101. He reports that he used to be a heavy drinker, but gave up drinking completely years ago. Review of Systems Constitutional: Constitutional: Denies chills, Reports fatigue and Denies fever(s) Eyes: Eyes: Reports requires corrective lenses (For reading only) ENT: Reports Normal hearing present Cardiovascular: Cardiovascular: Denies chest pain, Denies palpitations and Reports dyspnea on exertion Respiratory: Respiratory: Reports dyspnea on exertion and Reports wheezing Gastrointestinal: Gastrointestinal: Denies abdominal pain, Denies diarrhea and Denies vomiting Genitourinary: Genitourinary: Denies dysuria and Denies urinary frequency Musculoskeletal: Musculoskeletal: Reports no additional musculoskeletal complaints Integumentary/Breasts: Skin/Breast: Denies rash Neurologic: Reports Normal hearing present and Denies Abnormal speech present Endocrine: Endocrine: Reports fatigue and Denies palpitations Allergic/Immunologic: Allergic/Immunologic: Reports wheezing PMFSH Past Medical History Medical History Bipolar 1 disorder COPD (chronic obstructive pulmonary disease) Hyperlipemia Functional capacity: independent ambulation Family History Family history: reviewed and not pertinent Surgical History Surgical History No history of previous surgery Social History Social History Household Members: Spouse Housing: House Do you presently have visiting nurse or other home services: No Alcohol intake: never Smoking Status: Former smoker Tobacco Type: Cigarette Packs Per Day: 1.5 Cigarettes Per Day: 50.0 Smoked in Last 30 Days: Yes Smoking Quit Date: 5 days ago Patient Interested in Nicotine Replacement: No Patient Given Instructions on How to Stop Smoking: Yes Date Education Initiated: 03/04/20 Second Hand Smoke Exposure: No Use of substances other than those prescribed or required for medical reasons: Yes Substance Use Type: Marijuana Substance Use Frequency: Occasionally Last Used Substance: Days (ago) Currently Displaying Signs/Symptoms of Drug Intoxication Withdrawal: No Any prior treatment program specific to substance use: No Have you been hit, kicked, punched, or otherwise hurt by someone within the past year? If so, by whom?: No Do you feel safe in your current relationship?: Yes Is there a partner from a previous relationship who is making you feel unsafe now?: No Are you made to feel afraid or neglected: No Advance Directives: No Advance Directives Information Provided: No Do you have thoughts of harming others: None Do you have a plan to hurt others: No Plan Recently lost weight without trying: No service: No Current occupational status: retired [employer] Allergies Allergy/AdvReac Type Severity Reaction Status Date / Time No Known Allergies Allergy Verified 03/02/20 00:34 Home Medications Medication Instructions Recorded Confirmed Type citalopram 30 mg PO BEDTIME 03/02/20 03/04/20 History divalproex 1,000 mg PO DAILY 03/02/20 03/04/20 History olanzapine 10 mg PO BEDTIME 03/02/20 03/04/20 History simvastatin 80 mg PO DAILY 03/02/20 03/04/20 History Physical Exam Vital Signs: Vital Signs: Last Vital Signs Temp 98.5 F 03/05/20 08:00 Pulse 59 03/05/20 08:00 Resp 16 03/05/20 08:00 BP 142/81 H 03/05/20 08:00 Pulse Ox 94 03/05/20 08:00 Body Mass Index 28.3 Const: General: healthy appearing, no acute distress and alert Orientation/consciousness: oriented to person and oriented to place HENMT: Head: Yes normal to inspection Ears: hearing grossly normal bilaterally Face and sinus: Yes normal facial exam Eyes: Conjunctivae: conjunctivae normal Sclerae: sclerae normal EOM: EOMs intact bilaterally Neck: Neck: Yes normal visual inspection and Yes trachea midline Resp: Other: Scattered soft wheezes Effort & Inspection: normal respiratory effort Cardio: Rate: regular rate Rhythm: regular rhythm Heart sounds: no murmurs GI: Inspection: No distended Palpation (GI): Soft to palpation, nontender, no guarding and not rigid Auscultation: normal bowel sounds Rectal Exam - Male: Yes deferred Skin: Other: normal color, warm and dry Neuro: General: oriented to person and oriented to place Cranial nerves: Yes Normal hearing present Cognition (Neuro): normal cognition Speech: No Abnormal speech present Extrem: General: Yes normal to inspection Psych: Appearance: grossly normal Mental Status: mental status grossly normal Affect: normal affect Thought process: Normal thought process present Insight: Good insight present (Psych) Results Labs Result diagrams: 03/05/20 08:56 03/04/20 17:31 Labs: Abnormal lab results 03/04/20 03/04/20 03/04/20 Range/Units 17:30 17:31 17:31 WBC (4.8-10.8) X10*3/uL Plt Count (160-400) X10*3/uL Immature Gran % (Auto) (0.0-0.4) % Neut % (Auto) (45-73) % Lymph % (Auto) (20-40) % Emanuel % (Auto) (2-11) % Emanuel # (Auto) (0.1-1.2) X10*3/uL Abs Immat Gran (auto) (0.00-0.03) X10*3/uL BUN 23 H (9-16) mg/dL AST 97 H (5-37) U/L ALT 130 H (0-40) U/L C-Reactive Protein 6.90 H (< or = 0.50) mg/dL B-Natriuretic Peptide 403 H (<100) pg/mL Total Protein 6.1 L (6.5-8.0) g/dL Albumin 3.3 L (3.5-5.0) g/dL 03/04/20 03/05/20 03/05/20 Range/Units 18:35 06:21 08:56 WBC 11.8 H (4.8-10.8) X10*3/uL Plt Count 107 L D 112 L (160-400) X10*3/uL Immature Gran % (Auto) 0.9 H 1.2 H (0.0-0.4) % Neut % (Auto) 73.2 H (45-73) % Lymph % (Auto) 15.7 L (20-40) % Emanuel % (Auto) 14.3 H (2-11) % Emanuel # (Auto) 1.7 H (0.1-1.2) X10*3/uL Abs Immat Gran (auto) 0.09 H 0.14 H (0.00-0.03) X10*3/uL BUN (9-16) mg/dL AST 60 H (5-37) U/L ALT 101 H (0-40) U/L C-Reactive Protein (< or = 0.50) mg/dL B-Natriuretic Peptide (<100) pg/mL Total Protein 5.1 L (6.5-8.0) g/dL Albumin 2.8 L (3.5-5.0) g/dL Short CBC 03/04/20 03/04/20 03/05/20 Range/Units 17:30 18:35 08:56 WBC Cancelled 9.9 11.8 H Hgb Cancelled 15.3 15.0 Hct Cancelled 43.8 43.2 Plt Count Cancelled 107 L D 112 L BMP 03/04/20 17:31 Sodium 138 Potassium 4.6 Chloride 101 Carbon Dioxide 28 BUN 23 H Creatinine 0.76 Calcium 8.6 D Liver Function 03/04/20 03/05/20 Range/Units 17:31 06:21 Total Bilirubin 0.5 0.7 (0.0-1.0) mg/dL Direct Bilirubin 0.3 0.3 (0.0-0.5) mg/dL AST 97 H 60 H (5-37) U/L ALT 130 H 101 H (0-40) U/L Alkaline Phosphatase 76 56 D (39-117) U/L Albumin 3.3 L 2.8 L (3.5-5.0) g/dL All other labs normal. Assessment and Plan (1) Bacteremia: Problem details: Blood cultures x2 positive for Gram-negative vanessa Status: Acute Source remains unclear. Workup in progress. (2) Abnormal CT scan, gallbladder: Problem details: Thickening of gallbladder wall Status: Acute He has symptoms of malaise, but no specific GI symptoms. CT scan of the abdomen and pelvis shows thickening of the gallbladder wall. This may be related to acute cholecystitis, but other etiologies are possible and he has no abdominal tenderness. No gallstones are evident on CT scan. Further evaluation with ultrasound and likely HIDA scan as well will be helpful. He has not been NPO and will need continued IV antibiotics. We will request ultrasound for tomorrow morning. Hepatitis panel results are pending as is identification of the Gram-negative vanessa.
--- NOTE | 2020-03-05 11:21 | HO.PM.IMPN ---
Subjective Subjective Date of Service: 03/05/20 Interval History: Minimal cough + wheeze, no dyspnea. Denies abd pain, nausea, and vomiting. Denies urinary symptoms. CT demonstrates likely acute cholecystitis, less likely pyelonephritis Physical Exam Vital Signs: Vital Signs: Last Vital Signs Temp 98.5 F 03/05/20 08:00 Pulse 59 03/05/20 08:00 Resp 16 03/05/20 08:00 BP 142/81 H 03/05/20 08:00 Pulse Ox 94 03/05/20 08:00 Body Mass Index 28.3 Gen: in no acute distress HEENT: sclera anicteric, moist mucus membranes Neck: supple Lungs: soft end-expiratory wheezes bilateral bases Heart: regular rate and rhythm, no murmurs Abd: soft, non-tender, non-distended, no Bustamante sign Ext: no edema Skin: warm/well-perfused Neuro: alert and oriented x3, no focal findings Psych: appropriate affect Objective Data Current Medications Generic Name Dose Route Start Last Admin Trade Name Freq PRN Reason Stop Dose Admin Acetaminophen 650 mg 03/04/20 18:26 Acetaminophen 325 Mg Tablet PO Q6H PRN Pain, Mild (Pain Scale 1-3) Albuterol Sulfate 2.5 mg 03/04/20 18:26 Albuterol Sulfate (0.083%) 2.5 Mg/3 Ml Vial.Neb INHALE RQ4H PRN Shortness of Breath Albuterol Sulfate 2 puff 03/04/20 19:14 Albuterol Sulfate 90 Mcg 8 Gm Inhaler INHALE Q6H PRN shortness of breath or wheezing Atorvastatin Calcium 40 mg 03/04/20 21:00 03/04/20 22:08 Atorvastatin Calcium 40 Mg Tablet PO 40 mg BEDTIME FRAN Administration Azithromycin 500 mg 03/04/20 20:00 03/04/20 19:50 Azithromycin 500 Mg Tablet PO 500 mg Q24H FRAN Administration Divalproex Sodium 1,000 mg 03/05/20 09:00 03/05/20 09:51 Divalproex Sodium Er 500 Mg Tab.Er.24h PO 1,000 mg DAILY FRAN Administration Docusate Sodium 100 mg 03/04/20 18:26 Docusate Sodium 100 Mg Capsule PO DAILY PRN Constipation Escitalopram Oxalate 15 mg 03/04/20 21:00 03/04/20 22:08 Escitalopram Oxalate 5 Mg Tablet PO 15 mg BEDTIME FRAN Administration Piperacillin Sod/Tazobactam 50 mls @ 100 mls/hr 03/04/20 22:00 03/05/20 10:21 Sod 3.375 gm/ Sodium Chloride IV Infused Q6H FRAN Infusion Olanzapine 10 mg 03/04/20 21:00 03/04/20 22:09 Olanzapine 10 Mg Tablet PO 10 mg BEDTIME FRAN Administration Ondansetron HCl 4 mg 03/04/20 18:26 Ondansetron Hcl 4 Mg/2 Ml Vial IVPUSH Q8H PRN Nausea and Vomiting Prednisone 40 mg 03/05/20 09:00 03/05/20 09:51 Prednisone 20 Mg Tablet PO 40 mg DAILY FRAN Administration Sodium Chloride 3 ml 03/05/20 00:00 03/05/20 09:51 0.9 % Sodium Chloride Flush 3 Ml Syringe IVFLUSH 3 ml QSHIFT FRAN Administration Labs CBC & Chem 7: 03/05/20 08:56 03/04/20 17:31 Labs: Laboratory Results - last 24 hr 03/04/20 03/04/20 03/04/20 17:30 17:30 17:30 WBC Cancelled RBC Cancelled Hgb Cancelled Hct Cancelled MCV Cancelled MCH Cancelled MCHC Cancelled RDW Cancelled Plt Count Cancelled MPV Cancelled Immature Gran % (Auto) Cancelled Neut % (Auto) Cancelled Lymph % (Auto) Cancelled [place] % (Auto) Cancelled Eos % (Auto) Cancelled Baso % (Auto) Cancelled Lymph # (Auto) Cancelled [place] # (Auto) Cancelled Eos # (Auto) Cancelled Baso # (Auto) Cancelled Abs Immat Gran (auto) Cancelled Absolute Neuts (auto) Cancelled Absolute Nucleated RBC Cancelled Nucleated RBC % (auto) Cancelled Smear Tech's Comments Hold Blue Top SEE NOTE Sodium Potassium Chloride Carbon Dioxide Anion Gap BUN Creatinine Estim Creat Clear Calc Estimated GFR Random Glucose Lactic Acid Calcium Magnesium Total Bilirubin Direct Bilirubin AST ALT Alkaline Phosphatase C-Reactive Protein B-Natriuretic Peptide 403 H Total Protein Albumin COVID-19 (MELLISA) COVID-19 Clin Com 03/04/20 03/04/20 03/04/20 17:31 17:31 17:31 WBC RBC Hgb Hct MCV MCH MCHC RDW Plt Count MPV Immature Gran % (Auto) Neut % (Auto) Lymph % (Auto) [place] % (Auto) Eos % (Auto) Baso % (Auto) Lymph # (Auto) [place] # (Auto) Eos # (Auto) Baso # (Auto) Abs Immat Gran (auto) Absolute Neuts (auto) Absolute Nucleated RBC Nucleated RBC % (auto) Smear Tech's Comments Hold Blue Top Sodium 138 Potassium 4.6 Chloride 101 Carbon Dioxide 28 Anion Gap 14 BUN 23 H Creatinine 0.76 Estim Creat Clear Calc 89.7 Estimated GFR > 60 Random Glucose 105 Lactic Acid 1.2 Calcium 8.6 D Magnesium Total Bilirubin Direct Bilirubin AST ALT Alkaline Phosphatase C-Reactive Protein B-Natriuretic Peptide Total Protein Albumin COVID-19 (MELLISA) Negative COVIDQinging Weekly Flower Delivery See Note 03/04/20 03/04/20 03/05/20 17:31 18:35 06:21 WBC 9.9 RBC 4.74 Hgb 15.3 Hct 43.8 MCV 92.4 MCH 32.3 MCHC 34.9 RDW 14.7 Plt Count 107 L D MPV 12.2 Immature Gran % (Auto) 0.9 H Neut % (Auto) 73.2 H Lymph % (Auto) 15.7 L [place] % (Auto) 10.0 Eos % (Auto) 0.0 Baso % (Auto) 0.2 Lymph # (Auto) 1.6 [place] # (Auto) 1.0 Eos # (Auto) 0.0 Baso # (Auto) 0.0 Abs Immat Gran (auto) 0.09 H Absolute Neuts (auto) 7.3 Absolute Nucleated RBC 0.000 Nucleated RBC % (auto) 0.0 Smear Tech's Comments Hold Blue Top Sodium Potassium Chloride Carbon Dioxide Anion Gap BUN Creatinine Estim Creat Clear Calc Estimated GFR Random Glucose Lactic Acid Calcium Magnesium 2.2 Total Bilirubin 0.5 0.7 Direct Bilirubin 0.3 0.3 AST 97 H 60 H ALT 130 H 101 H Alkaline Phosphatase 76 56 D C-Reactive Protein 6.90 H B-Natriuretic Peptide Total Protein 6.1 L 5.1 L Albumin 3.3 L 2.8 L COVID-19 (MELLISA) COVIDQinging Weekly Flower Delivery 03/05/20 08:56 WBC 11.8 H RBC 4.63 Hgb 15.0 Hct 43.2 MCV 93.3 MCH 32.4 MCHC 34.7 RDW 14.9 Plt Count 112 L MPV 12.4 Immature Gran % (Auto) 1.2 H Neut % (Auto) 45.4 Lymph % (Auto) 38.4 [place] % (Auto) 14.3 H Eos % (Auto) 0.5 Baso % (Auto) 0.2 Lymph # (Auto) 4.6 [place] # (Auto) 1.7 H Eos # (Auto) 0.1 Baso # (Auto) 0.0 Abs Immat Gran (auto) 0.14 H Absolute Neuts (auto) 5.4 Absolute Nucleated RBC 0.000 Nucleated RBC % (auto) 0.0 Smear Tech's Comments VERIFIED Hold Blue Top Sodium Potassium Chloride Carbon Dioxide Anion Gap BUN Creatinine Estim Creat Clear Calc Estimated GFR Random Glucose Lactic Acid Calcium Magnesium Total Bilirubin Direct Bilirubin AST ALT Alkaline Phosphatase C-Reactive Protein B-Natriuretic Peptide Total Protein Albumin COVID-19 (MELLISA) COVID-19 Clin Com Assessment and Plan (1) Bacteremia: Status: Acute (2) Acute cholecystitis: Status: Acute Assessment and Plan: hospital d#2 64yo M admitted 03/02-03/03/20 for COPD exacerbation, called back and readmitted 03/04/20 for GNR bacteremia # GNR bacteremia - possibly anaerobic per Micro. likely GI source. follow speciation/susceptibility from BCx. consult ID. on pip/juanita d#2 # acute cholecystitis - surprisingly asymptomatic. consult Surg and will obtain US. may require HIDA as well. continue pip/juanita d#2 # thrombocytopenia - ?due to occult infection. actually improved from prior admission. hold heparinoids. # transaminasemia - likely due to acute cholecystitis but check HBV/HCV # COPD exacerbation - complete 1 more days of prednisone + azithromycin. prn nebs. # bipolar disorder -continue escitalopram + valproate + olanzapine # VTE ppx - SCDs # dispo - home after source control achieved I updated the pt's Jessi [phone]
[2020-03-05 15:16] VITALS: BP 115/66; PULSE 66; RESP 18; TEMP 36.4; O2SAT 98
[2020-03-05 16:51] LABS: Color Urine YELLOW; Glucose Urine UA NEG (NEG); Leukocyte Esterase Urine NEG (NEG); Nitrite Urine NEG (NEG); PH 6.5 (5.0-8.0); Specific Gravity - Urine 1.015 (1.005-1.025); Urine Blood NEG (NEG); Urine Ketones NEG (NEG); Urine Protein NEG (NEG-TRACE)
[2020-03-05 16:52] LABS: Appearance Urine CLEAR
[2020-03-05 18:57] LABS: RBC Urine 0-2 /HPF (0); WBC Urine 0 /HPF (0-4)
[2020-03-05] MEDS: Escitalopram Oxalate 5 MG TABLET 15 MG PO (21:27)
[2020-03-05] MEDS: OLANZapine 10 MG TABLET PO (21:28)
[2020-03-05] MEDS: Azithromycin 500 MG TABLET PO (21:28)
[2020-03-05] MEDS: Atorvastatin Calcium 40 MG TABLET PO (21:28)
--- NOTE | 2020-03-05 22:08 | PC.NURSE ---
Pt repo's self and ambulates in room by self with steady gait. Able to make needs known, order for abd u/s ordered, unable to do today due to need for 8 hr fast. Scheduled for tomorrow morning, pt NPO at 0000. Pt aware of plan.
[2020-03-06] VITALS: BP 127/69; PULSE 56; RESP 16; TEMP 36.6; O2SAT 93
--- NOTE | 2020-03-06 | US_ITS ---
EXAMINATION: US ABDOMEN LIMITED CLINICAL INFORMATION: Right upper quadrant pain, question cholecystitis. COMPARISON: CT abdomen and pelvis dated 03/04/2020. TECHNIQUE: Real-time imaging of the right upper quadrant abdominal viscera. FINDINGS: PANCREAS: The visualized head and body of the pancreas appears unremarkable. Remainder of the pancreas is obscured by bowel gas. LIVER: Diffuse increased echogenicity. No focal hepatic lesion. There is no intrahepatic biliary duct dilatation seen. GALLBLADDER: There are small stones/gravel/sludge in the gallbladder neck, which appear nonmobile in real-time imaging. The gallbladder wall is mildly thickened measuring 0.4 cm. Area of ring-down artifact in the region of the fundus, suggesting component of adenomyomatosis. No pericholecystic fluid. There is tenderness noted in the area of the gallbladder. COMMON BILE DUCT: Normal in caliber measuring 0.21 cm in diameter. RIGHT KIDNEY: Normal. No hydronephrosis. No renal calculi or focal parenchymal lesions. The kidney measures 11.0 cm in maximum dimension. FREE FLUID: None. US/US abdomen limited IMPRESSION: 1. Small stones/gravel/sludge in the region of the gallbladder neck, which were felt to be nonmobile on real-time imaging. Associated mild gallbladder wall thickening and tenderness in the area of the gallbladder. These findings could represent acute cholecystitis in the appropriate clinical circumstance. Recommend close clinical correlation and management. Short-term follow-up ultrasound for reassessment as clinically warranted. 2. There is generalized increase in hepatic echotexture, consistent with fatty infiltration or hepatocellular disease. Please correlate clinically. No focal hepatic mass or intrahepatic biliary duct dilatation is seen.
[2020-03-06] MEDS: 0.9 % Sodium Chloride Flush 3 ML SYRINGE IVFLUSH ×4 (00:39→20:03)
[2020-03-06 03:33] LABS: HBc Num1 0.09 S/CO (0.00-0.79); HBsAGNum1 0.17 S/CO (0.00-0.99); Hepatitis B Core Antibody Nonreactive (Nonreactive); Hepatitis B Surface Antigen Negative (Negative)
[2020-03-06 03:45] LABS: HBS Num1 0.52 mIU/mL (0-7.99); ~HepC Num1 0.06 S/CO (0.00-0.79); ~Hepatitis B Surface Antibody NONREACTIVE (Nonreactive); ~Hepatitis C Antibody Nonreactive (Nonreactive)
[2020-03-06] MEDS: Piperacillin Sodium/Tazobactam 3.375 GM in 0.9 % Sodium Chloride 50 ML IV ×4 (06:23→22:20)
[2020-03-06 07:21] LABS: Basophils Percent Auto 0.2 % (0-2); Eosinophils Percent Auto 0.2 % (0-4); Hematocrit 44.8 % (42-52); Hemoglobin 15.8 g/dl (14.0-18.0); Imm Gran Abs Auto 0.23 X10*3/uL (0.00-0.03); Imm Gran Pct Auto 1.8 % (0.0-0.4); Lymphocytes Absolute Auto 3.7 X10*3/uL (1.2-4.9); MANUAL DIFF FLAG SCAN; Mean Corpuscular HGB Conc 35.3 g/dl (31.0-36.0); Mean Corpuscular Hemoglobin 32.5 pg (27.0-33.0); Mean Corpuscular Volume 92.2 fL (80-98); Mean Platelet Volume 11.3 fL (9.4-12.4); Monocytes Absolute Auto 1.5 X10*3/uL (0.1-1.2); Monocytes Percent Auto 12.1 % (2-11); Neutrophils Absolute Auto 7.2 X10*3/uL (2.0-8.3); Neutrophils Percent Auto 56.7 % (45-73); Platelet Count 168 X10*3/uL (160-400); Red Blood Count 4.86 X10*6/uL (4.60-5.80); Red Cell Distribution Width 14.5 % (11.0-16.0); SCAN SMEAR FLAG 1; White Blood Count 12.7 X10*3/uL (4.8-10.8)
[2020-03-06 07:38] VITALS: BP 127/75; PULSE 62; RESP 18; TEMP 36.7; O2SAT 93
[2020-03-06 07:39] LABS: Alanine Aminotransferase 85 U/L (0-40); Albumin Level 2.8 g/dL (3.5-5.0); Alkaline Phosphatase 53 U/L (39-117); Anion Gap 14 (12-20); Aspartate Amino Transferase 38 U/L (5-37); Bilirubin Total 0.8 mg/dL (0.0-1.0); Blood Urea Nitrogen 22 mg/dL (9-16); Calcium 7.9 mg/dL (8.4-10.2); Carbon Dioxide 29 mmol/L (22-29); Chloride 101 mmol/L (96-108); Creatinine Clr Calc Pharmacy 89.7; Estimated Glomerular Filt Rate > 60; Glucose Random 88 mg/dL (60-115); Potassium 4.7 mmol/l (3.3-5.1); Sodium 139 mmol/L (135-145); Total Protein 5.5 g/dL (6.5-8.0)
[2020-03-06] MEDS: Divalproex Sodium ER 500 MG TAB.ER.24H 1000 MG PO (08:11)
[2020-03-06] MEDS: predniSONE 20 MG TABLET 40 MG PO (08:11)
[2020-03-06 08:13] LABS: SLIDE REVIEW VERIFIED
--- NOTE | 2020-03-06 09:55 | NM_ITS ---
EXAMINATION: BILIARY TRACT IMAGING STUDY WITH CCK CLINICAL INFORMATION: Gallbladder wall thickening visualized on CT scan. Question acute cholecystitis.. COMPARISON: No previous biliary scan is available for comparison. The diagnostic CT scan of the abdomen and pelvis, dated 03/04/2020, is available for comparison. . TECHNIQUE: Serial gamma scintillation camera images were obtained over the abdomen for a total observation period of 92 minutes following the intravenous administration of 5 mCi Tc-99m Mebrofenin. FINDINGS: The bolus injection was likely slightly prolonged. There is good concentration of activity in the liver as well as some biliary activity in the initial frame of imaging. The gallbladder is faintly visualized on the initial frame in this gradually increases in intensity. Some small bowel activity is also visualized in the initial frame and this becomes diffuse as a study progresses. At 60 minutes post radiopharmaceutical injection, a 30-minute infusion of 1.5 micrograms Sincalide was then begun and an additional 30 minutes of images were obtained. There is only minimal gallbladder emptying during the sincalide infusion. At the end of the study there is abnormal retention in the gallbladder but almost complete clearance of activity from the liver. Diffuse small bowel activity is also visualized at the end of the study. The calculated gallbladder ejection fraction is 10% (normal gallbladder ejection fraction is greater than 35%). NM/NM hepatobiliary w pharm IMPRESSION: 1. Visualization of the gallbladder is evidence of a patent cystic duct and strong evidence against the diagnosis of acute cholecystitis. The common bile duct is patent. Liver function appears normal. 2. Poor gallbladder emptying and a low gallbladder ejection fraction are evidence of impaired gallbladder contractility and most likely due to chronic cholecystitis.
--- NOTE | 2020-03-06 11:59 | PM.PNGS ---
Subjective Subjective Date of Service: 03/06/20 Interval history: No new complaints. Has been NPO for his ultrasound, which was just done. Hungry. No abdominal pain. He reports that shortly before he began to feel ill, he broke up a dog fight involving his daughter's dog. He had some small cuts and scrapes following this but does not report any significant pain or erythema related to them and has no complaints now. Physical Exam Vital Signs: Vital Signs: Last Vital Signs Temp 98.1 F 03/06/20 07:38 Pulse 62 03/06/20 07:38 Resp 18 03/06/20 07:38 BP 127/75 03/06/20 07:38 Pulse Ox 93 03/06/20 07:38 Body Mass Index 28.3 Const: General: cooperative, healthy appearing and no acute distress GI: Other: Soft, nontender, nondistended. Progress Note: A&P Assessment and plan (1) Abnormal CT scan, gallbladder: Problem details: Thickening of gallbladder wall Status: Acute Assessment and Plan: Abdominal ultrasound has been done, but official interpretation is not yet available. I reviewed the images and did not see evidence of acute cholecystitis or obvious gallstones though there may be 1 small stone or polyp. Transaminase levels are declining. Alkaline phosphatase remains normal. Awaiting identification of Gram-negative vanessa from a blood cultures on 03/02/2020. It appears unlikely that the gallbladder is the source though will need to confirm my with radiologist. It is possible that the source was related to the abrasions he sustained breaking up a dog fight. Continue Zosyn. Await culture results. Fall Risk Details Current Medications: Current Medications Generic Name Dose Route Start Last Admin Trade Name Shannan PRN Reason Stop Dose Admin Acetaminophen 650 mg 03/04/20 18:26 Acetaminophen 325 Mg Tablet PO Q6H PRN Pain, Mild (Pain Scale 1-3) Albuterol Sulfate 2.5 mg 03/04/20 18:26 Albuterol Sulfate (0.083%) 2.5 Mg/3 Ml Vial.Neb INHALE RQ4H PRN Shortness of Breath Albuterol Sulfate 2 puff 03/04/20 19:14 Albuterol Sulfate 90 Mcg 8 Gm Inhaler INHALE Q6H PRN shortness of breath or wheezing Atorvastatin Calcium 40 mg 03/04/20 21:00 12/13/20 21:28 Atorvastatin Calcium 40 Mg Tablet PO 40 mg BEDTIME FRAN Administration Azithromycin 500 mg 03/04/20 20:00 03/05/20 21:28 Azithromycin 500 Mg Tablet PO 03/07/20 06:00 500 mg Q24H FRAN Administration Divalproex Sodium 1,000 mg 03/05/20 09:00 03/06/20 08:11 Divalproex Sodium Er 500 Mg Tab.Er.24h PO 1,000 mg DAILY FRAN Administration Docusate Sodium 100 mg 03/04/20 18:26 Docusate Sodium 100 Mg Capsule PO DAILY PRN Constipation Escitalopram Oxalate 15 mg 03/04/20 21:00 03/05/20 21:27 Escitalopram Oxalate 5 Mg Tablet PO 15 mg BEDTIME FRAN Administration Piperacillin Sod/Tazobactam 50 mls @ 100 mls/hr 03/04/20 22:00 03/06/20 06:59 Sod 3.375 gm/ Sodium Chloride IV Infused Q6H FRAN Infusion Olanzapine 10 mg 03/04/20 21:00 03/05/20 21:28 Olanzapine 10 Mg Tablet PO 10 mg BEDTIME FRAN Administration Ondansetron HCl 4 mg 03/04/20 18:26 Ondansetron Hcl 4 Mg/2 Ml Vial IVPUSH Q8H PRN Nausea and Vomiting Prednisone 40 mg 03/05/20 09:00 03/06/20 08:11 Prednisone 20 Mg Tablet PO 03/07/20 06:00 40 mg DAILY FRAN Administration Sodium Chloride 3 ml 03/05/20 00:00 03/06/20 08:11 0.9 % Sodium Chloride Flush 3 Ml Syringe IVFLUSH 3 ml QSHIFT FRAN Administration Time Spent With Patient Time: Total time spent is greater than 50% in coordination of care (as documented) at patient's floor/unit and/or counseling patient: Time with patient: 15 - 24 minutes
[2020-03-06 13:04] VITALS: BP 137/70; PULSE 70; RESP 20; TEMP 36.1; O2SAT 91
--- NOTE | 2020-03-06 15:10 | HO.PM.IMPN ---
Subjective Subjective Date of Service: 03/06/20 Interval History: seen and examined denies abdominal symptoms wants to eat reports he was bitten by dogs about 2-3 weeks ago. ROS General - no fevers or chills Cardiovascular - no chest pain Respiratory - no shortness of breath or cough Abdominal- no abdominal pain, nausea, vomiting, diarrhea Physical Exam Vital Signs: Vital Signs: Last Vital Signs Temp 96.9 F 03/06/20 13:04 Pulse 70 03/06/20 13:04 Resp 20 03/06/20 13:04 BP 137/70 03/06/20 13:04 Pulse Ox 91 L 03/06/20 13:04 Body Mass Index 28.3 Const: Other: General - no acute distress, appears comfortable Cardiovascular - regular rate and rhythm, S1-S2 Lungs - normal respiratory effort, clear to auscultation bilaterally, no wheezing Abdomen - soft, non-tender, no rebound or guarding Extremities - no edema bilaterally Neuro - awake and alert, no focal deficits Skin - healing wounds L hand, R knee -- no signs of acute infection Objective Data Current Medications Generic Name Dose Route Start Last Admin Trade Name Freq PRN Reason Stop Dose Admin Acetaminophen 650 mg 03/04/20 18:26 Acetaminophen 325 Mg Tablet PO Q6H PRN Pain, Mild (Pain Scale 1-3) Albuterol Sulfate 2.5 mg 03/04/20 18:26 Albuterol Sulfate (0.083%) 2.5 Mg/3 Ml Vial.Neb INHALE RQ4H PRN Shortness of Breath Albuterol Sulfate 2 puff 03/04/20 19:14 Albuterol Sulfate 90 Mcg 8 Gm Inhaler INHALE Q6H PRN shortness of breath or wheezing Atorvastatin Calcium 40 mg 03/04/20 21:00 03/05/20 21:28 Atorvastatin Calcium 40 Mg Tablet PO 40 mg BEDTIME FRAN Administration Azithromycin 500 mg 03/04/20 20:00 03/05/20 21:28 Azithromycin 500 Mg Tablet PO 03/07/20 06:00 500 mg Q24H FRAN Administration Divalproex Sodium 1,000 mg 03/05/20 09:00 03/06/20 08:11 Divalproex Sodium Er 500 Mg Tab.Er.24h PO 1,000 mg DAILY FRAN Administration Docusate Sodium 100 mg 03/04/20 18:26 Docusate Sodium 100 Mg Capsule PO DAILY PRN Constipation Escitalopram Oxalate 15 mg 03/04/20 21:00 03/05/20 21:27 Escitalopram Oxalate 5 Mg Tablet PO 15 mg BEDTIME FRAN Administration Piperacillin Sod/Tazobactam 50 mls @ 100 mls/hr 03/04/20 22:00 03/06/20 13:08 Sod 3.375 gm/ Sodium Chloride IV Infused Q6H FRAN Infusion Olanzapine 10 mg 03/04/20 21:00 03/05/20 21:28 Olanzapine 10 Mg Tablet PO 10 mg BEDTIME FRAN Administration Ondansetron HCl 4 mg 03/04/20 18:26 Ondansetron Hcl 4 Mg/2 Ml Vial IVPUSH Q8H PRN Nausea and Vomiting Prednisone 40 mg 03/05/20 09:00 03/06/20 08:11 Prednisone 20 Mg Tablet PO 03/07/20 06:00 40 mg DAILY FRAN Administration Sodium Chloride 3 ml 03/05/20 00:00 03/06/20 08:11 0.9 % Sodium Chloride Flush 3 Ml Syringe IVFLUSH 3 ml QSHIFT FRAN Administration Labs CBC & Chem 7: 03/06/20 06:03 03/06/20 06:03 Microbiology Microbiology Results: Microbiology 03/05/20 16:25 Urine clean catch - Clean Catch Midstream Urine Culture - Preliminary No growth to date. 03/04/20 17:39 Blood - Venous Blood Culture - Preliminary No growth after 24 hours. 03/04/20 17:31 Blood - Venous Blood Culture - Preliminary No growth after 24 hours. Assessment and Plan (1) Bacteremia: Status: Acute Assessment and Plan: This is a 64 yo M who was admitted 03/02/2020 to 03/03/2020 for copd exacerbation and was discharged home in stable condition. He was called back to return to the hospital after his blood cx returned positive in 2/2 aneorobic bottles for GNB. 1. Gram Neg bacteremia initially felt intraabdominal source from biliary tract -- work up negative for acute omari pt reveals he was bitten by dogs few weeks back -- ? source of his bacteremia continue zosyn consult ID 2. Probable chronic cholecysitis see HIDA report gen surg input appreciated start diet 3. Thrombocytopenia likely 2/2 to acute infection, improve 4. Recent COPD complete prednisone / zithromax continue other care
[2020-03-06 15:27] VITALS: BP 140/73; PULSE 65; RESP 16; TEMP 36.6; O2SAT 94
--- NOTE | 2020-03-06 15:58 | W.PM.IDCN ---
History of Present Illness Data of Consult Service Date: 03/06/20 Requesting physician: Chidi Smith Primary Care Provider: Unknown Physician HPI Reason for consult: gram negative bacteremia He was in hospital last week COPD exacerbation and called back for positive blood culture He has no abdominal discomfort or dysuria He has had dog bite with minimal sequelae last week He has no nausea or vomiting or diarrhea Review of Systems Review of Systems: Yes all other systems are reviewed and are negative ENT: Reports Normal hearing present Neurologic: Reports Normal hearing present and Denies Abnormal speech present [facility] Past Medical History Medical History Bipolar 1 disorder COPD (chronic obstructive pulmonary disease) Hyperlipemia Functional capacity: independent ambulation Family History Family history: reviewed and not pertinent Surgical History Surgical History No history of previous surgery Social History Social History Household Members: Spouse Housing: House Do you presently have visiting nurse or other home services: No Alcohol intake: never Smoking Status: Former smoker Tobacco Type: Cigarette Packs Per Day: 1.5 Cigarettes Per Day: 50.0 Smoked in Last 30 Days: Yes Smoking Quit Date: 5 days ago Patient Interested in Nicotine Replacement: No Patient Given Instructions on How to Stop Smoking: Yes Date Education Initiated: 03/04/20 Second Hand Smoke Exposure: No Use of substances other than those prescribed or required for medical reasons: Yes Substance Use Type: Marijuana Substance Use Frequency: Occasionally Last Used Substance: Days (ago) Currently Displaying Signs/Symptoms of Drug Intoxication Withdrawal: No Any prior treatment program specific to substance use: No Have you been hit, kicked, punched, or otherwise hurt by someone within the past year? If so, by whom?: No Do you feel safe in your current relationship?: Yes Is there a partner from a previous relationship who is making you feel unsafe now?: No Are you made to feel afraid or neglected: No Advance Directives: No Advance Directives Information Provided: No Do you have thoughts of harming others: None Do you have a plan to hurt others: No Plan Recently lost weight without trying: No service: No Current occupational status: retired Meds Allergies Allergy/AdvReac Type Severity Reaction Status Date / Time No Known Allergies Allergy Verified 03/02/20 00:34 Home Medications Medication Instructions Recorded Confirmed Type citalopram 30 mg PO BEDTIME 03/02/20 03/04/20 History divalproex 1,000 mg PO DAILY 03/02/20 03/04/20 History olanzapine 10 mg PO BEDTIME 03/02/20 03/04/20 History simvastatin 80 mg PO DAILY 03/02/20 03/04/20 History Physical Exam Vital Signs: Vital Signs: Last Vital Signs Temp 98 F 03/06/20 15:27 Pulse 65 03/06/20 15:27 Resp 16 03/06/20 15:27 BP 140/73 H 03/06/20 15:27 Pulse Ox 94 03/06/20 15:27 Body Mass Index 28.3 Const: General: cooperative HENMT: Head: Yes normal to inspection Resp: Effort & Inspection: normal respiratory effort Cardio: Rate: regular rate Rhythm: regular rhythm GI: Palpation (GI): nontender and No hepatosplenomegaly present Skin: Rashes: no rashes Neuro: Cranial nerves: Yes Normal hearing present Speech: No Abnormal speech present Extrem: General: Yes normal to inspection Assessment and Plan (1) Bacteremia: Problem details: Possible causes include left sided pyelonephritis including E coli and Klebsiella Others related to dog bite may include capnocytophaga There could be occult cirrhosis ?SBP Also Pseudomonas related to lung Gallbladder appears unremarkable Less likely idiopathic such as Campylobacter Status: Acute Wuld continue Zosyn pending above results and may be able to focus on possible etiology (2) COPD (chronic obstructive pulmonary disease): Status: Acute Results Labs CBC & Chem 7: 03/06/20 06:03 03/06/20 06:03 Labs: Short CBC 03/06/20 Range/Units 06:03 WBC 12.7 H (4.8-10.8) X10*3/uL Hgb 15.8 (14.0-18.0) g/dl Hct 44.8 (42-52) % Plt Count 168 D (160-400) X10*3/uL BMP 03/06/20 06:03 Sodium 139 Potassium 4.7 Chloride 101 Carbon Dioxide 29 BUN 22 H Creatinine 0.76 Calcium 7.9 L D Liver Function 03/06/20 Range/Units 06:03 Total Bilirubin 0.8 (0.0-1.0) mg/dL AST 38 H (5-37) U/L ALT 85 H (0-40) U/L Alkaline Phosphatase 53 (39-117) U/L Albumin 2.8 L (3.5-5.0) g/dL Urine 03/05/20 Range/Units 16:25 Urine Color YELLOW Urine Appearance CLEAR Urine pH 6.5 (5.0-8.0) Ur Specific [place] 1.015 (1.005-1.025) Urine Protein NEG (NEG-TRACE) MG/DL Urine Glucose (UA) NEG (NEG) MG/DL Microbiology Microbiology Results: Microbiology 03/05/20 16:25 Urine clean catch - Clean Catch Midstream Urine Culture - Preliminary No growth to date. 03/04/20 17:39 Blood - Venous Blood Culture - Preliminary No growth after 24 hours. 03/04/20 17:31 Blood - Venous Blood Culture - Preliminary No growth after 24 hours.
[2020-03-06 17:41] VITALS: BP 97/67; PULSE 70; RESP 18; TEMP 36.9; O2SAT 94
[2020-03-06] MEDS: OLANZapine 10 MG TABLET PO (20:01)
[2020-03-06] MEDS: Azithromycin 500 MG TABLET PO (20:01)
[2020-03-06] MEDS: Escitalopram Oxalate 5 MG TABLET 15 MG PO (20:01)
[2020-03-06] MEDS: Atorvastatin Calcium 40 MG TABLET PO (20:01)
[2020-03-06 23:47] VITALS: BP 135/78; PULSE 68; RESP 20; TEMP 36.4; O2SAT 94
[2020-03-07] MEDS: Piperacillin Sodium/Tazobactam 3.375 GM in 0.9 % Sodium Chloride 50 ML IV ×2 (04:17→09:00)
[2020-03-07 07:13] VITALS: BP 135/76; PULSE 59; RESP 16; TEMP 36.4; O2SAT 95
[2020-03-07] MEDS: Divalproex Sodium ER 500 MG TAB.ER.24H 1000 MG PO (09:00)
[2020-03-07] MEDS: 0.9 % Sodium Chloride Flush 3 ML SYRINGE IVFLUSH (09:04)
[2020-03-07 11:42] VITALS: BP 124/76; PULSE 61; RESP 15; TEMP 36.4; O2SAT 94
--- NOTE | 2020-03-07 12:17 | P.DS_ITS ---
DS: Providers Provider Date of admission: 03/04/20 17:31 Primary care physician: Unknown Physician Consults: 03/04/20 18:26 Consult to Infectious Diseases Routine Consulting Provider: Kairme Davalos Reason for consultation: bacteremia Has provider been notified: No 03/05/20 08:45 Consult to General Surgery Routine Consulting Provider: [facility] [place] [facility] Reason for consultation: acute cholecystitis/ bacteremia; though no GI symptoms 03/06/20 15:08 Consult to Infectious Diseases Routine Consulting Provider: Karime Davalos Reason for consultation: gram negative bacteremia, no source, ? due to dog bite DS: Diagnosis Discharge Diagnosis (1) Bacteremia: Status: Acute (2) COPD (chronic obstructive pulmonary disease): Status: Acute DS: Medications Discharge Medications Home Medications: Home Medications Medication Instructions Recorded Confirmed citalopram 30 mg PO BEDTIME 03/02/20 03/04/20 divalproex 1,000 mg PO DAILY 03/02/20 03/04/20 olanzapine 10 mg PO BEDTIME 03/02/20 03/04/20 simvastatin 80 mg PO DAILY 03/02/20 03/04/20 Previous Rx's Medication Instructions Recorded albuterol sulfate [ProAir HFA] 2 puff INHALATION Q6H PRN #18 g 03/03/20 prednisone 40 mg PO DAILY #8 tab 03/03/20 levofloxacin 750 mg PO DAILY #14 tab 03/07/20 DS: Summary Hospital Course Hospital Course: Patient was called back to the hospital for to added to and aerobic cultures being positive for Gram-negative bacteremia. He was started on IV Zosyn and workup was initiated define the source. Patient's CT scan was abnormal for possible cholecystitis, although patient had no clinical symptoms to suggest th is. He was evaluated by General surgery and ultimately underwent a HIDA scan which was negative for acute cholecystitis, possible chronic. Infectious Disease was consulted to help guide management. Ultimately, patients blood cultures from 03/02/2020 remained without growth (gram stain was positive). Patient was afebrile and felt well. After re-dicussion with ID decision was made to discharge him on po Levaquin 750mg daily for 14 days. He was educated on returning to the hospital should we have any fevers/chills/nausea/vomiting. Time Spent with Patient Time attestation: Total time spent providing and/or coordinating discharge services: Physical Exam Vital Signs: Vital Signs: Last Vital Signs Temp 97.6 F 03/07/20 11:42 Pulse 61 03/07/20 11:42 Resp 15 03/07/20 11:42 BP 124/76 03/07/20 11:42 Pulse Ox 94 03/07/20 11:42 Body Mass Index 28.3 Const: Other: General - no acute distress, appears comfortable Cardiovascular - regular rate and rhythm, S1-S2 Lungs - normal respiratory effort, clear to auscultation bilaterally, no wheezing Abdomen - soft, nontender, no rebound or guarding Extremities - no edema bilaterally Neuro - awake and alert, no focal deficits DS: Data Data Completed and Pending Labs on day of discharge: Laboratory Last Values WBC 12.7 X10*3/uL (4.8-10.8) H 03/06/20 06:03 RBC 4.86 X10*6/uL (4.60-5.80) 03/06/20 06:03 Hgb 15.8 g/dl (14.0-18.0) 03/06/20 06:03 Hct 44.8 % (42-52) 03/06/20 06:03 MCV 92.2 fL (80-98) 03/06/20 06:03 MCH 32.5 pg (27.0-33.0) 03/06/20 06:03 MCHC 35.3 g/dl (31.0-36.0) 03/06/20 06:03 RDW 14.5 % (11.0-16.0) 03/06/20 06:03 Plt Count 168 X10*3/uL (160-400) D 03/06/20 06:03 MPV 11.3 fL (9.4-12.4) 03/06/20 06:03 Immature Gran % (Auto) 1.8 % (0.0-0.4) H 03/06/20 06:03 Neut % (Auto) 56.7 % (45-73) 03/06/20 06:03 Lymph % (Auto) 29.0 % (20-40) 03/06/20 06:03 [place] % (Auto) 12.1 % (2-11) H 03/06/20 06:03 Eos % (Auto) 0.2 % (0-4) 03/06/20 06:03 Baso % (Auto) 0.2 % (0-2) 03/06/20 06:03 Lymph # (Auto) 3.7 X10*3/uL (1.2-4.9) 03/06/20 06:03 Barber # (Auto) 1.5 X10*3/uL (0.1-1.2) H 03/06/20 06:03 Eos # (Auto) 0.0 X10*3/uL (0.0-0.4) 03/06/20 06:03 Baso # (Auto) 0.0 X10*3/uL (0.0-0.2) 03/06/20 06:03 Abs Immat Gran (auto) 0.23 X10*3/uL (0.00-0.03) H 03/06/20 06:03 Absolute Neuts (auto) 7.2 X10*3/uL (2.0-8.3) 03/06/20 06:03 Absolute Nucleated RBC 0.000 X10*3/uL (0.0-0.012) 03/06/20 06:03 Nucleated RBC % (auto) 0.0 /100WBC (0.0-0.2) 03/06/20 06:03 Smear Tech's Comments VERIFIED 03/06/20 06:03 Hold Blue Top SEE NOTE 03/04/20 17:30 Sodium 139 mmol/L (135-145) 03/06/20 06:03 Potassium 4.7 mmol/l (3.3-5.1) 03/06/20 06:03 Chloride 101 mmol/L (96-108) 03/06/20 06:03 Carbon Dioxide 29 mmol/L (22-29) 03/06/20 06:03 Anion Gap 14 (12-20) 03/06/20 06:03 BUN 22 mg/dL (9-16) H 03/06/20 06:03 Creatinine 0.76 mg/dL (0.5-1.4) 03/06/20 06:03 Estim Creat Clear Calc 89.7 03/06/20 06:03 Estimated GFR > 60 03/06/20 06:03 Random Glucose 88 mg/dL (60-115) 03/06/20 06:03 Lactic Acid 1.2 mmol/L (0.5-2.0) 03/04/20 17:31 Calcium 7.9 mg/dL (8.4-10.2) L D 03/06/20 06:03 Magnesium 2.2 mg/dL (1.6-2.6) 03/04/20 17:31 Total Bilirubin 0.8 mg/dL (0.0-1.0) 03/06/20 06:03 Direct Bilirubin 0.3 mg/dL (0.0-0.5) 03/05/20 06:21 AST 38 U/L (5-37) H 03/06/20 06:03 ALT 85 U/L (0-40) H 03/06/20 06:03 Alkaline Phosphatase 53 U/L (39-117) 03/06/20 06:03 C-Reactive Protein 6.90 mg/dL (< or = 0.50) H 03/04/20 17:31 B-Natriuretic Peptide 403 pg/mL (<100) H 03/04/20 17:30 Total Protein 5.5 g/dL (6.5-8.0) L 03/06/20 06:03 Albumin 2.8 g/dL (3.5-5.0) L 03/06/20 06:03 Urine Color YELLOW 03/05/20 16:25 Urine Appearance CLEAR 03/05/20 16:25 Urine pH 6.5 (5.0-8.0) 03/05/20 16:25 Ur Specific [place] 1.015 (1.005-1.025) 03/05/20 16:25 Urine Protein NEG MG/DL (NEG-TRACE) 03/05/20 16:25 Urine Glucose (UA) NEG MG/DL (NEG) 03/05/20 16:25 Urine Ketones NEG MG/DL (NEG) 03/05/20 16:25 Urine Blood NEG (NEG) 03/05/20 16:25 Urine Nitrite NEG (NEG) 03/05/20 16:25 Ur Leukocyte Esterase NEG (NEG) 03/05/20 16:25 Urine RBC 0-2 /HPF (0) 03/05/20 16:25 Urine WBC 0 /HPF (0-4) 03/05/20 16:25 Ur Squamous Epith Cells NONE /LPF 03/05/20 16:25 Urine Bacteria NONE /LPF 03/05/20 16:25 COVID-19 (MELLISA) Negative (Negative) 03/04/20 17:31 COVID-19 Clin Com See Note 03/04/20 17:31 Hep Bs Antigen Negative (Negative) 03/05/20 06:21 Hep Bs Antibody NONREACTIVE (Nonreactive) 03/05/20 06:21 Hep B Core Total Ab Nonreactive (Nonreactive) 03/05/20 06:21 Hepatitis C Ab (EIA) Nonreactive (Nonreactive) 03/05/20 06:21 Preliminary micro results at discharge 03/04/20 17:39 Blood Culture - Preliminary Blood - Venous No growth after 48 hours. 03/04/20 17:31 Blood Culture - Preliminary Blood - Venous No growth after 48 hours. 03/05/20 16:25 Urine Culture - Preliminary Urine clean catch - Clean Catch Midstream No growth to date. Discharge Plan Discharge Patient Disposition: Home, Self-Care Referrals: Benny Cordero MD [Physician] - 1 Week (03/14/2020 12:00pm with Dr. Cordero Please call and reschedule if you can't keep this appointment.) Discharge Medications: New levofloxacin 750 mg tablet 750 mg PO DAILY Qty: 14 RF: 0 Continued olanzapine 10 mg tablet 10 mg PO BEDTIME RF: 0 simvastatin 80 mg tablet 80 mg PO DAILY RF: 0 citalopram 20 mg tablet 30 mg PO BEDTIME RF: 0 divalproex 500 mg tablet extended release 24 hr 1,000 mg PO DAILY RF: 0 albuterol sulfate [ProAir HFA] 90 mcg/actuation HFA aerosol inhaler 2 puff inhalation Q6H PRN (Reason: shortness of breath or wheezing) Qty: 18 RF: 0 prednisone 20 mg tablet 40 mg PO DAILY Qty: 8 RF: 0 Discontinued azithromycin 500 mg Tablet 500 mg PO Q24H Qty: 3 RF: 0 Discharge Orders: Discharge Order (Routine); Ordered 03/07/20 Ordered By: Chidi Smith Diet: advance to usual diet Activity on Discharge: As tolerated Visit Report Forms: Patient Portal Discharge page Care Plan Goals: To stay healthy and out of the hospital. Health Concerns: Bacteremia - no definitive source was found for this but this could be related to your recent dog bites Plan of Treatment: Bacteremia - Take Levaquin 750mg daily for 14 total days. IF you have feves / chills / nuasea/vomiting or any other symptoms -- please call your primary care doctor or return to the emergency room.
--- NOTE | 2020-03-07 12:48 | PM.PNGS ---
Subjective Subjective Date of Service: 03/07/20 Interval history: Alert, no complaints, anticipating discharge today. Physical Exam Vital Signs: Vital Signs: Last Vital Signs Temp 97.6 F 03/07/20 11:42 Pulse 61 03/07/20 11:42 Resp 15 03/07/20 11:42 BP 124/76 03/07/20 11:42 Pulse Ox 94 03/07/20 11:42 Body Mass Index 28.3 Const: Other: Laboratory Results WBC 12.7 X10*3/uL (4. 8-10.8) H 03/06/20 06:03 RBC 4.86 X10*6/uL (4. 60-5.80) 03/06/20 06:03 Hgb 15.8 g/dl (14.0-1 8.0) 03/06/20 06:03 Hct 44.8 % (42-52) 03/06/20 06:03 MCV 92.2 fL (80-98) 03/06/20 06:03 MCH 32.5 pg (27.0-33. 0) 03/06/20 06:03 MCHC 35.3 g/dl (31.0-3 6.0) 03/06/20 06:03 RDW 14.5 % (11.0-16.0 ) 03/06/20 06:03 Plt Count 168 X10*3/uL (160 -400) D 03/06/20 06:03 MPV 11.3 fL (9.4-12.4 ) 03/06/20 06:03 Immature Gran % (A uto) 1.8 % (0.0-0.4) H 03/06/20 06:03 Neut % (Auto) 56.7 % (45-73) 03/06/20 06:03 Lymph % (Auto) 29.0 % (20-40) 03/06/20 06:03 [place] % (Auto) 12.1 % (2-11) H 03/06/20 06:03 Eos % (Auto) 0.2 % (0-4) 03/06/20 06:03 Baso % (Auto) 0.2 % (0-2) 03/06/20 06:03 Lymph # (Auto) 3.7 X10*3/uL (1.2 -4.9) 03/06/20 06:03 [place] # (Auto) 1.5 X10*3/uL (0.1 -1.2) H 03/06/20 06:03 Eos # (Auto) 0.0 X10*3/uL (0.0 -0.4) 03/06/20 06:03 Baso # (Auto) 0.0 X10*3/uL (0.0 -0.2) 03/06/20 06:03 Abs Immat Gran (au to) 0.23 X10*3/uL (0. 00-0.03) H 03/06/20 06:03 Absolute Neuts (au to) 7.2 X10*3/uL (2.0 -8.3) 03/06/20 06:03 Absolute Nucleated RBC 0.000 X10*3/uL (0 .0-0.012) 03/06/20 06:03 Nucleated RBC % (a uto) 0.0 /100WBC (0.0- 0.2) 03/06/20 06:03 Smear Tech's Comme nts VERIFIED 03/06/20 06:03 Hold Blue Top SEE NOTE 03/04/20 17:30 Sodium 139 mmol/L (135-1 45) 03/06/20 06:03 Potassium 4.7 mmol/l (3.3-5 .1) 03/06/20 06:03 Chloride 101 mmol/L (96-10 8) 03/06/20 06:03 Carbon Dioxide 29 mmol/L (22-29) 03/06/20 06:03 Anion Gap 14 (12-20) 03/06/20 06:03 BUN 22 mg/dL (9-16) H 03/06/20 06:03 Creatinine 0.76 mg/dL (0.5-1 .4) 03/06/20 06:03 Estim Creat Clear Calc 89.7 03/06/20 06:03 Estimated GFR > 60 03/06/20 06:03 Random Glucose 88 mg/dL (60-115) 03/06/20 06:03 Lactic Acid 1.2 mmol/L (0.5-2 .0) 03/04/20 17:31 Calcium 7.9 mg/dL (8.4-10 .2) L D 03/06/20 06:03 Magnesium 2.2 mg/dL (1.6-2. 6) 03/04/20 17:31 Total Bilirubin 0.8 mg/dL (0.0-1. 0) 03/06/20 06:03 Direct Bilirubin 0.3 mg/dL (0.0-0. 5) 03/05/20 06:21 AST 38 U/L (5-37) H 03/06/20 06:03 ALT 85 U/L (0-40) H 03/06/20 06:03 Alkaline Phosphata se 53 U/L (39-117) 03/06/20 06:03 C-Reactive Protein 6.90 mg/dL (< or = 0.50) H 03/04/20 17:31 B-Natriuretic Pept ye 403 pg/mL (<100) H 03/04/20 17:30 Total Protein 5.5 g/dL (6.5-8.0 ) L 03/06/20 06:03 Albumin 2.8 g/dL (3.5-5.0 ) L 03/06/20 06:03 Urine Color YELLOW 03/05/20 16:25 Urine Appearance CLEAR 03/05/20 16:25 Urine pH 6.5 (5.0-8.0) 03/05/20 16:25 Ur Specific Gravit y 1.015 (1.005-1.0 25) 03/05/20 16:25 Urine Protein NEG MG/DL (NEG-TR MELL) 03/05/20 16:25 Urine Glucose (UA) NEG MG/DL (NEG) 03/05/20 16:25 Urine Ketones NEG MG/DL (NEG) 03/05/20 16:25 Urine Blood NEG (NEG) 03/05/20 16:25 Urine Nitrite NEG (NEG) 03/05/20 16:25 Ur Leukocyte Rachana ase NEG (NEG) 03/05/20 16:25 Urine RBC 0-2 /HPF (0) 03/05/20 16:25 Urine WBC 0 /HPF (0-4) 03/05/20 16:25 Ur Squamous Epith Cells NONE /LPF 03/05/20 16:25 Urine Bacteria NONE /LPF 03/05/20 16:25 COVID-19 (MELLISA) Negative (Negati ve) 03/04/20 17:31 COVID-19 Clin Com See Note 03/04/20 17:31 Hep Bs Antigen Negative (Negati ve) 03/05/20 06:21 Hep Bs Antibody NONREACTIVE (Non reactive) 03/05/20 06:21 Hep B Core Total A b Nonreactive (Non reactive) 03/05/20 06:21 Hepatitis C Ab (EI A) Nonreactive (Non reactive) 03/05/20 06:21 Impressions Abdomen Ultrasound 03/06/20 00:00 IMPRESSION: 1. Small stones/gravel/sludge in the region of the gallbladder neck, which were felt to be nonmobile on real-time imaging. Associated mild gallbladder wall thickening and tenderness in the area of the gallbladder. These findings could represent acute cholecystitis in the appropriate clinical circumstance. Recommend close clinical correlation and management. Short-term follow-up ultrasound for reassessment as clinically warranted. 2. There is generalized increase in hepatic echotexture, consistent with fatty infiltration or hepatocellular disease. Please correlate clinically. No focal hepatic mass or intrahepatic biliary duct dilatation is seen. Hepatobiliary Scan Nuclear Medicine 03/06/20 09:55 IMPRESSION: 1. Visualization of the gallbladder is evidence of a patent cystic duct and strong evidence against the diagnosis of acute cholecystitis. The common bile duct is patent. Liver function appears normal. 2. Poor gallbladder emptying and a low gallbladder ejection fraction are evidence of impaired gallbladder contractility and most likely due to chronic cholecystitis. General: healthy appearing, no acute distress and alert Progress Note: A&P Assessment and plan (1) Abnormal CT scan, gallbladder: Problem details: He has abnormal imaging studies of the gallbladder including sludge or small stones and possible adenomyomatosis. Gallbladder ejection fraction is low. He has no complaints of abdominal pain nausea or vomiting and no abdominal tenderness. Status: Acute Assessment and Plan: Imaging and clinical findings are consistent with asymptomatic gallstones. The gallbladder does not appear to be the source of the recent positive blood cultures. In the absence of clinical symptoms, no further workup or intervention is needed. I discussed this with him and reviewed the usual symptoms of biliary colic. He will follow up as an outpatient as needed. Fall Risk Details Current Medications: Current Medications Generic Name Dose Route Start Last Admin Trade Name Freq PRN Reason Stop Dose Admin Acetaminophen 650 mg 03/04/20 18:26 Acetaminophen 325 Mg Tablet PO Q6H PRN Pain, Mild (Pain Scale 1-3) Albuterol Sulfate 2.5 mg 03/04/20 18:26 Albuterol Sulfate (0.083%) 2.5 Mg/3 Ml Vial.Neb INHALE RQ4H PRN Shortness of Breath Albuterol Sulfate 2 puff 03/04/20 19:14 Albuterol Sulfate 90 Mcg 8 Gm Inhaler INHALE Q6H PRN shortness of breath or wheezing Atorvastatin Calcium 40 mg 03/04/20 21:00 03/06/20 20:01 Atorvastatin Calcium 40 Mg Tablet PO 40 mg BEDTIME FRAN Administration Divalproex Sodium 1,000 mg 03/05/20 09:00 03/07/20 09:00 Divalproex Sodium Er 500 Mg Tab.Er.24h PO 1,000 mg DAILY FRAN Administration Docusate Sodium 100 mg 03/04/20 18:26 Docusate Sodium 100 Mg Capsule PO DAILY PRN Constipation Escitalopram Oxalate 15 mg 03/04/20 21:00 03/06/20 20:01 Escitalopram Oxalate 5 Mg Tablet PO 15 mg BEDTIME FRAN Administration Piperacillin Sod/Tazobactam 50 mls @ 100 mls/hr 03/04/20 22:00 03/07/20 10:04 Sod 3.375 gm/ Sodium Chloride IV Infused Q6H FRAN Infusion Olanzapine 10 mg 03/04/20 21:00 03/06/20 20:01 Olanzapine 10 Mg Tablet PO 10 mg BEDTIME FRAN Administration Ondansetron HCl 4 mg 03/04/20 18:26 Ondansetron Hcl 4 Mg/2 Ml Vial IVPUSH Q8H PRN Nausea and Vomiting Sodium Chloride 3 ml 03/05/20 00:00 03/07/20 09:04 0.9 % Sodium Chloride Flush 3 Ml Syringe IVFLUSH 3 ml QSHIFT FRAN Administration Time Spent With Patient Time: Total time spent is greater than 50% in coordination of care (as documented) at patient's floor/unit and/or counseling patient: Time with patient: less than 15 minutes
[2020-03-09 23:23] LABS: Legionella Ag Urine Not Detected (Not Detected)
== END 2020-03-07 13:26 | disposition home or self-care (01) | DRG 445 ==
LOC: HO.ED 17:27 → HO.IMC 17:45 → HO.S3 03-06 09:07
PROVIDERS: Physician Assistant; Physician Assistant Medical; Admitting Provider Family Medicine; Emergency Provider Internal Medicine; Visit Provider Family Medicine
DX: K80.10 Calculus of gallbladder with chronic cholecystitis without obstruction (principal); R78.81 Bacteremia; E78.5 Hyperlipidemia, unspecified; F17.210 Nicotine dependence, cigarettes, uncomplicated; Z71.6 Tobacco abuse counseling; F31.9 Bipolar disorder, unspecified; R74.01 Elevation of levels of liver transaminase levels; D69.6 Thrombocytopenia, unspecified; Z20.828 Contact with and (suspected) exposure to other viral communicable diseases; Z79.899 Other long term (current) drug therapy
CPT/HCPCS: 36415; 74177; 76705; 78227; 80048; 80053; 80076; 81001; 83605; 83735; 83880; 85025; 86140; 86704; 86706; 86803; 87040; 87086; 87340; 87449; 87635; 93005; 96365; 99285; A9537; J2543; Q9967

== ENCOUNTER 2021-01-05 13:57 | Outpatient (REF) | payer MEDICARE, SELFPAY ==
--- NOTE | ~2021-01-05 | CT_ITS ---
EXAMINATION: CT CHEST SCREENING CLINICAL INFORMATION: Smoking history. 96 pack year history. COMPARISON: None. TECHNIQUE: Multidetector volumetric CT imaging of the chest is performed without contrast using low dose technique. Additional 2D coronal and sagittal reformatted images and axial 3D maximum intensity projection (MIP) images are generated on the CT workstation. This CT examination was performed using dose optimization techniques as appropriate, variously including the following: *Automated exposure control *Adjustment of mA and/or kV according to patient size (this includes techniques or standardized protocols for targeted exams where dose is matched to indication/reason for exam; i.e. extremities or head) *Use of iterative reconstruction technique DLP: 208 mGy-cm FINDINGS: LUNGS: There is evidence of mild emphysema. There is a 3 mm right upper lobe nodule axial image 59 series 6. There is a 2 mm left upper lobe nodule axial image 64 series 6. There is a 2 mm right upper lobe nodule axial image 75 series 6. There is a 2 mm right upper lobe nodule axial image 86 series 6. There is a 2 mm peripheral or subpleural left lower lobe nodule adjacent to the fissure axial image 207 series 6. There is a 2 mm right lower lobe nodule axial image 232 series 6. There is question of a 2 mm right lower lobe nodule axial image 334 series 6.. MEDIASTINUM: The heart does not appear enlarged. There is coronary artery calcification. The thoracic aorta is upper normal in size. There are small mediastinal lymph nodes. No enlarged lymph nodes are seen. There is no pericardial effusion. The visualized thyroid gland is unremarkable. PLEURA: No pleural effusion or pleural thickening. AXILLA: No lymphadenopathy. UPPER ABDOMEN: There is a small calcification in the left kidney. This is peripherally located and probably represents a cortical calcification as opposed to a stone. OSSEOUS STRUCTURES: There are degenerative changes of the spine. CT/CT lung screening IMPRESSION: Mild emphysema. Small pulmonary nodules or micronodules. Coronary artery calcification. Upper normal-size thoracic aorta. ASSESSMENT: Lung-RADS category 2: Benign RECOMMENDATION: Annual low-dose chest CT follow-up recommended.
== END 2021-01-05 13:58 | disposition home or self-care (01) ==
LOC: HO.CT 13:57
PROVIDERS: PCP Internal Medicine; Visit Provider Physician Assistant Medical
DX: Z12.2 Encounter for screening for malignant neoplasm of respiratory organs (principal); F17.210 Nicotine dependence, cigarettes, uncomplicated
CPT/HCPCS: 71271; G0296

== ENCOUNTER 2022-03-28 07:41 | Outpatient (REF) | payer MEDICARE, SELFPAY ==
[2022-03-28 08:19] LABS: MANUAL DIFF FLAG NO
[2022-03-28 08:22] LABS: Basophils Absolute Auto 0.1 X10*3/uL (0.0-0.2); Basophils Percent Auto 0.6 % (0-2); Eosinophils Absolute Auto 0.1 X10*3/uL (0.0-0.4); Hematocrit 50.6 % (42.0-52.0); Hemoglobin 17.8 g/dl (14.0-18.0); Imm Gran Abs Auto 0.02 X10*3/uL (0.00-0.03); Imm Gran Pct Auto 0.2 % (0.0-0.4); Lymphocytes Absolute Auto 3.4 X10*3/uL (1.2-4.9); Lymphocytes Percent Auto 37.6 % (20-40); Mean Corpuscular HGB Conc 35.2 g/dl (31.0-36.0); Mean Corpuscular Hemoglobin 31.9 pg (27.0-33.0); Mean Corpuscular Volume 90.7 fL (80.0-98.0); Mean Platelet Volume 10.1 fL (9.4-12.4); Monocytes Absolute Auto 0.8 X10*3/uL (0.1-1.2); Monocytes Percent Auto 8.5 % (2-11); Neutrophils Absolute Auto 4.7 x10*3/uL (2.0-8.3); Neutrophils Percent Auto 52.1 % (45-73); Platelet Count 160 X10*3/uL (160-400); Red Blood Count 5.58 X10*6/uL (4.60-5.80); Red Cell Distribution Width 13.3 % (11.0-16.0)
[2022-03-28 08:30] LABS: Ammonia 27 umol/L (13-55)
[2022-03-28 08:38] LABS: Alanine Aminotransferase 9 U/L (0-40); Albumin Level 4.1 g/dL (3.5-5.0); Alkaline Phosphatase 61 U/L (39-117); Aspartate Amino Transferase 21 U/L (5-37); Bilirubin Direct 0.2 mg/dL (0.0-0.5); Bilirubin Total 0.5 mg/dL (0.0-1.0)
[2022-03-28 10:07] LABS: Valproate 73.7 mcg/mL (50.0-100.0)
== END 2022-03-28 07:42 | disposition home or self-care (01) ==
LOC: HO.HMGCLDS 07:41
PROVIDERS: PCP Clinical Nurse Specialist Psychiatric/Mental Health, Adult; Visit Provider Clinical Nurse Specialist Psychiatric/Mental Health, Adult
DX: F31.9 Bipolar disorder, unspecified (principal); Z79.899 Other long term (current) drug therapy
CPT/HCPCS: 36415; 80076; 80164; 82140; 85025

== ENCOUNTER 2022-11-27 11:14 | Outpatient (REF) | payer MEDICARE, SELFPAY ==
--- NOTE | ~2022-11-27 | XR_ITS ---
EXAMINATION: XR CHEST CLINICAL INFORMATION: Cough history of COPD COMPARISON: Chest radiograph from 03/01/2020 TECHNIQUE: 2 views of the chest were obtained. FINDINGS: Chronic interstitial lung markings. No pneumothorax. Trachea is midline. Cardiac mediastinal silhouette is not enlarged. Aorta demonstrates atherosclerotic calcifications. No large pleural effusion. Degenerative changes of the thoracolumbar spine with slight dextrocurvature of the midthoracic spine. Suggestion of chronic healed left posterior rib fractures. XR/XR chest 2V IMPRESSION: No acute cardiopulmonary process.
== END 2022-11-27 11:15 | disposition home or self-care (01) ==
LOC: HO.HMGCX 11:14
PROVIDERS: PCP Internal Medicine; Visit Provider Internal Medicine
DX: J44.9 Chronic obstructive pulmonary disease, unspecified (principal)
CPT/HCPCS: 71046

== ENCOUNTER 2022-12-11 14:57 | Outpatient (REF) | payer MEDICARE, SELFPAY ==
--- NOTE | ~2022-12-11 | US_ITS ---
EXAMINATION: Noninvasive assessment of the bilateral lower extremities with ARTERIAL DUPLEX ). CLINICAL INFORMATION: Peripheral vascular disease TECHNIQUE: Duplex Doppler techniques with waveform analysis and measurement of velocities in the bilateral iliac arteries, common femoral, profunda femoris, superficial femoral, popliteal and tibial arteries were performed. 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 Reconstituted color flow seen in the distal external iliac artery with dampened and monophasic waveforms with decreased velocity measuring 34.1 cm/s Common femoral artery: 49.5 cm/s, phasicity: Monophasic Profunda femoris artery: 34.9 cm/s, phasicity: Monophasic Superficial femoral artery (proximal): 44.7 cm/s, phasicity: Monophasic Superficial femoral artery (mid): 44.8 cm/s, phasicity: Monophasic Superficial femoral artery (distal): 42.6 cm/s, phasicity: Monophasic Popliteal artery: 38.0 cm/s, phasicity: Monophasic Posterior tibial artery: 35.7 cm/s, phasicity: Monophasic Peroneal artery: 23.9 cm/s, phasicity: Monophasic Anterior tibial artery: 11.1 cm/s, phasicity: Monophasic LEFT LEG: Iliac arteries: Calcified plaque with mildly elevated velocity in the common iliac artery measuring 231 cm/s with monophasic flow consistent with a mild to moderate stenosis. Biphasic waveforms in the external iliac artery with velocity measuring 139 cm/s. Common femoral artery: 152 cm/s, phasicity: Triphasic Profunda femoris artery: 216 cm/s, phasicity: Biphasic Superficial femoral artery (proximal): 119 cm/s, phasicity: Biphasic Superficial femoral artery (mid): 91.7 cm/s, phasicity: Triphasic Superficial femoral artery (distal): 77.7 cm/s, phasicity: Triphasic Popliteal artery: 85.7 cm/s, phasicity: Biphasic Posterior tibial artery: 42.7 cm/s, phasicity: Biphasic Peroneal artery: 72.1 cm/s, phasicity: Biphasic Anterior tibial artery: 77.2 cm/s, phasicity: Biphasic Dorsalis pedis artery: 16.8 cm/s, phasicity: Monophasic US/US arterial duplex LE BI IMPRESSION: RIGHT LEG: Occlusion of the proximal right common iliac artery with reconstitution of flow in the distal right external iliac artery with monophasic waveforms. LEFT LEG: Mild to moderate stenosis of the left common iliac artery with calcified plaque with mildly elevated velocity and monophasic flow.
== END 2022-12-11 14:58 | disposition home or self-care (01) ==
LOC: HO.US 14:57
PROVIDERS: PCP Internal Medicine; Visit Provider Internal Medicine
DX: I73.9 Peripheral vascular disease, unspecified (principal)
CPT/HCPCS: 93925

== ENCOUNTER 2023-02-19 21:15 | Inpatient (IN) | payer MEDICARE, SELFPAY ==
--- NOTE | 2023-02-19 | ECG_ITS ---
Test Reason : SOB Blood Pressure : / mmHG Vent. Rate : 074 BPM Atrial Rate : 074 BPM P-R Int : 132 ms QRS Dur : 078 ms QT Int : 370 ms P-R-T Axes : 059 -09 061 degrees QTc Int : 410 ms Normal sinus rhythm Low voltage QRS Borderline ECG When compared with ECG of 04-MAR-2020 17:35, Questionable change in QRS axis Referred By: Generic ED Physician Electronically Signed By:MARCO A ZELAYA MD
--- NOTE | ~2023-02-19 | XR_ITS ---
EXAMINATION: XR CHEST CLINICAL INFORMATION: Dyspnea. COMPARISON: 02/26/2023 TECHNIQUE: 2 views of the chest were obtained. FINDINGS: The cardiomediastinal silhouette is within normal limits and stable. The lung buitrago are hyperinflated. There is no focal consolidation or pleural effusion. The bony structures and soft tissues are unremarkable. XR/XR chest 2V IMPRESSION: Hyperinflation. No focal consolidation or pleural effusion.
[2023-02-19 21:31] VITALS: BP 120/64; BP 130/70; PULSE 87; PULSE 92; RESP 25; TEMP 37.2; O2SAT 98; BMI 23.9
[2023-02-19 22:00] VITALS: BP 123/63; PULSE 75; RESP 30; TEMP 37.1; O2SAT 92
[2023-02-19] MEDS: Albuterol Sulfate 2.5 MG, Albuterol/Iprat 2.5/0.5MG 3 ML 3 ML INHALE (22:16)
[2023-02-19 22:18] VITALS: PULSE 73; RESP 25; O2SAT 95
[2023-02-19] MEDS: methylPREDNISolone Sod Succ 125 MG/2 ML VIAL IVPUSH (22:19)
--- NOTE | 2023-02-19 22:29 | ED.SOB ---
HPI - SOB/Dyspnea General Chief Complaint: Dyspnea Stated Complaint: diff breathing, hx copd, fever & cough x 3days Time Seen by Provider: 02/19/23 21:42 Source: patient Mode of arrival: EMS History of Present Illness HPI Narrative: This is a 67-year-old male who reports a history of COPD and is a 2 pack-a-day smoker, he does not use oxygen at home but states that over the past 3 days he has had increasing shortness of breath and is not improved with his albuterol pump and patient also reports having fever and chills. Related Data Home Medications Medication Instructions Recorded Confirmed citalopram 20 mg tablet 30 mg PO BEDTIME 03/02/20 03/04/20 divalproex 500 mg tablet,extended 1,000 mg PO DAILY 03/02/20 03/04/20 release 24 hr olanzapine 10 mg tablet 10 mg PO BEDTIME 03/02/20 03/04/20 simvastatin 80 mg tablet 80 mg PO DAILY 03/02/20 03/04/20 Previous Rx's Medication Instructions Recorded albuterol sulfate 90 mcg/actuation 2 puff inhalation Q6H PRN 03/03/20 aerosol inhaler (ProAir HFA) shortness of breath or wheezing #18 grams prednisone 20 mg tablet 40 mg (2 x 20 mg) PO DAILY #8 tabs 03/03/20 levofloxacin 750 mg tablet 750 mg PO DAILY #14 tabs 03/07/20 Allergies Allergy/AdvReac Type Severity Reaction Status Date / Time No Known Allergies Allergy Verified 03/02/20 00:34 Review of Systems Review of Systems: Pertinent positives and negatives as stated in HPI PMFSH Past Medical History Source: nursing notes reviewed Medical History Personal history of nicotine dependence Abnormal CT scan, gallbladder (~02/2020) COPD (chronic obstructive pulmonary disease) Bacteremia (~02/2020) Bipolar 1 disorder Hyperlipemia Surgical History History of skin graft Social History Social History Household Members: Spouse Housing: House Do you presently have visiting nurse or other home services: No Alcohol intake: never Comment: MED SURG OVERFLOW Patient Tobacco Use Status: Current everyday Tobacco user Tobacco use type: Cigarette Cigarettes Per Day: 50 Years Smoked: 50 (onset 15, 2+PPD x 50yrs, 100PYH) Smoked in Last 30 Days: Yes Second Hand Smoke Exposure: No Use of substances other than those prescribed or required for medical reasons: Yes Substance Use Type: Marijuana Advance Directives: No service: No Current occupational status: retired Physical Exam Vital Signs: Vital Signs: Last Vital Signs Temp 98.8 F 02/19/23 22:00 Pulse 83 02/20/23 00:25 Resp 25 H 02/20/23 00:25 BP 124/64 02/20/23 00:25 Pulse Ox 95 02/20/23 00:25 O2 Del Method Room Air 02/20/23 00:25 O2 Flow Rate 3 02/19/23 23:47 Oxygen Flow Rate 2 02/19/23 21:31 BMI result Body Mass Index 23.9 VITAL SIGNS: Reviewed. GENERAL: Well developed, well nourished, in no acute distress. HEAD: Normocephalic/atraumatic EYES: PERRLA, EOMI EARS: Ext canals without abnormality NOSE: Nares patent bilateral OROPHARYNX: no oral lesions noted, posterior pharynx clear NECK: Supple, no adenopathy LUNGS: Decreased breath sounds bilaterally with expiratory wheeze, tachypnea is present SpO2<92> on 2 L via nasal cannula CARDIOVASCULAR: Regular rate and rhythm without noted murmurs, no JVD or lower extremity edema. ABDOMEN: Soft, non-tender, non-distended with bowel sounds. MUSCULOSKELETAL: No tenderness, deformities, or effusions noted on gross inspection. EXTREMITIES: No cyanosis, clubbing or edema. SKIN: Inspection of the skin reveals no rashes NEUROLOGIC: Alert and oriented x 4. Strength and sensation to light touch were grossly intact x 4. Medications Administered Discontinued Medications Generic Name Dose Route Start Last Admin Trade Name Freq PRN Reason Stop Dose Admin Albuterol Sulfate 2.5 mg/ 0 mg 02/19/23 22:09 02/19/23 22:16 Albuterol/Ipratropium 3 ml INHALE 02/19/23 22:10 5 dose ONCE ONE Administration Methylprednisolone Sodium Succinate 125 mg 02/19/23 22:04 02/19/23 22:19 Methylprednisolone Sod Succ 125 Mg/2 Ml Vial IVPUSH 02/19/23 22:05 125 mg ONCE ONE Administration Medical Decision Making Medical Decision Making [facility] Narrative: 2144: 67-year-old male with history and clinical presentation, DDX: COPD exacerbation, patient is currently on antibiotics for a presumed pneumonia which we will evaluate with chest x-ray, COVID/influenza. I reviewed all investigations and hematologic indices are negative for leukocytosis or left shift, there is no evidence of anemia or thrombocytopenia. Although patient did report fevers, there is no report of increased sputum production, he is noted to have an elevated lactic acid which is secondary to albuterol treatments and he is also noted to be RSV positive which is likely the source of his fevers as well as hypoxia. Initial VBG demonstrated respiratory acidosis with hypercapnia and subsequent VBG after intervention with nebulized treatments and steroids the a respiratory acidosis has resolved and there is elevated CO2 consistent with underlying diagnosis COPD. There is no indication at this time to administer antibiotics as patient has precipitating event is viral in nature. Chemistry indices are grossly within normal limits without evidence of CAYETANO her electrolytes/liver enzyme derangements. Lactic acid is elevated secondary to the above-mentioned etiology. I sensitivity troponin is chronically detected/elevated at low levels without any acute changes noted on EKG. Patient is requiring supplemental oxygen. Viral testing positive for RSV. Chest x-ray negative for infiltrate and otherwise my interpretation is in agreement with radiology's impression. 0040: I discussed case with inpatient hospitalist who accepts admission. Differential Diagnosis Differential Diagnoses: The differential diagnosis associated with the presentation includes Please see the discussion above Admission/Observation Consideration of admission/observation: Escalation of care including admission/observation considered Please see the discussion above Consult Healthcare Provider Management of the patient was discussed with: Hospitalist Please see the discussion above Lab Data [facility] Lab Attestation statement: I reviewed the patient's lab results. Please see the discussion above 02/19/23 22:38 02/19/23 22:38 Labs: Lab Results 02/19/23 02/19/23 02/19/23 Range/Units 22:37 22:38 22:45 WBC 6.7 (4.8-10.8) X10*3/uL RBC 5.55 (4.60-5.80) X10*6/uL Hgb 18.0 (14.0-18.0) g/dl Hct 51.4 (42.0-52.0) % MCV 92.6 (80.0-98.0) fL MCH 32.4 (27.0-33.0) pg MCHC 35.0 (31.0-36.0) g/dl RDW 13.2 (11.0-16.0) % Plt Count 184 (160-400) X10*3/uL MPV 9.3 L (9.4-12.4) fL Immature Gran % (Auto) 0.1 (0.0-0.4) % Neut % (Auto) 60.3 (45-73) % Lymph % (Auto) 23.0 (20-40) % [place] % (Auto) 15.5 H (2-11) % Eos % (Auto) 0.1 (0-4) % Baso % (Auto) 1.0 (0-2) % Lymph # (Auto) 1.5 (1.2-4.9) X10*3/uL [place] # (Auto) 1.0 (0.1-1.2) X10*3/uL Eos # (Auto) 0.0 (0.0-0.4) X10*3/uL Baso # (Auto) 0.1 (0.0-0.2) X10*3/uL Abs Immat Gran (auto) 0.01 (0.00-0.03) X10*3/uL Absolute Neuts (auto) 4.0 (2.0-8.3) x10*3/uL Absolute Nucleated RBC 0.000 (0.0-0.012) X10*3/uL Nucleated RBC % (auto) 0.0 (0.0-0.2) /100WBC VBG pH Cancelled 7.29 L VBG pCO2 Cancelled 60 VBG pO2 Cancelled 37 VBG HCO3 Cancelled 29 H VBG O2 Saturation Cancelled 50.0 VBG Base Excess Cancelled 1.0 Sodium 137 (135-145) mmol/L Potassium 4.1 (3.3-5.1) mmol/L Chloride 98 (96-108) mmol/L Carbon Dioxide 28 (22-29) mmol/L Anion Gap 15 (12-20) BUN 18 H (9-16) mg/dL Creatinine 0.90 (0.5-1.4) mg/dL Estim Creat Clear Calc 65.7 Estimated GFR > 60 Random Glucose 99 (60-115) mg/dL Lactic Acid 2.5 H* (0.5-2.0) mmol/L Calcium 9.8 D (8.4-10.2) mg/dL Total Bilirubin 0.4 (0.0-1.0) mg/dL Direct Bilirubin 0.2 (0.0-0.5) mg/dL AST 36 (5-37) U/L ALT 26 (0-40) U/L Alkaline Phosphatase 59 (39-117) U/L Troponin I High Sens 8.6 (<3.5-35.0) ng/L Total Protein 8.3 H (6.5-8.0) g/dL Albumin 4.3 (3.5-5.0) g/dL Lipase 23 (8-78) U/L Influenza Type A (PCR) NEGATIVE (Negative) Influenza Type B (PCR) NEGATIVE (Negative) RSV RNA Qual (PCR) POSITIVE A (Negative) SARS-CoV-2 RNA (RT-PCR) NEGATIVE (Negative) 02/20/23 Range/Units 00:29 WBC (4.8-10.8) X10*3/uL RBC (4.60-5.80) X10*6/uL Hgb (14.0-18.0) g/dl Hct (42.0-52.0) % MCV (80.0-98.0) fL MCH (27.0-33.0) pg MCHC (31.0-36.0) g/dl RDW (11.0-16.0) % Plt Count (160-400) X10*3/uL MPV (9.4-12.4) fL Immature Gran % (Auto) (0.0-0.4) % Neut % (Auto) (45-73) % Lymph % (Auto) (20-40) % [place] % (Auto) (2-11) % Eos % (Auto) (0-4) % Baso % (Auto) (0-2) % Lymph # (Auto) (1.2-4.9) X10*3/uL [place] # (Auto) (0.1-1.2) X10*3/uL Eos # (Auto) (0.0-0.4) X10*3/uL Baso # (Auto) (0.0-0.2) X10*3/uL Abs Immat Gran (auto) (0.00-0.03) X10*3/uL Absolute Neuts (auto) (2.0-8.3) x10*3/uL Absolute Nucleated RBC (0.0-0.012) X10*3/uL Nucleated RBC % (auto) (0.0-0.2) /100WBC VBG pH 7.34 VBG pCO2 52 VBG pO2 47 VBG HCO3 28 H VBG O2 Saturation 72.0 VBG Base Excess 1.6 Sodium (135-145) mmol/L Potassium (3.3-5.1) mmol/L Chloride (96-108) mmol/L Carbon Dioxide (22-29) mmol/L Anion Gap (12-20) BUN (9-16) mg/dL Creatinine (0.5-1.4) mg/dL Estim Creat Clear Calc Estimated GFR Random Glucose (60-115) mg/dL Lactic Acid (0.5-2.0) mmol/L Calcium (8.4-10.2) mg/dL Total Bilirubin (0.0-1.0) mg/dL Direct Bilirubin (0.0-0.5) mg/dL AST (5-37) U/L ALT (0-40) U/L Alkaline Phosphatase (39-117) U/L Troponin I High Sens (<3.5-35.0) ng/L Total Protein (6.5-8.0) g/dL Albumin (3.5-5.0) g/dL Lipase (8-78) U/L Influenza Type A (PCR) (Negative) Influenza Type B (PCR) (Negative) RSV RNA Qual (PCR) (Negative) SARS-CoV-2 RNA (RT-PCR) (Negative) Independent Interpretation I performed an independent interpretation of an: EKG Interpretation: Normal sinus rhythm, HR-74, no STEMI, NM/QRS/QTC is within normal limits. Radiology Impression Discussion of test interpretation with radiology: I have reviewed the radiologist's reading. Radiologist Impression: Please see the discussion above External Record Review External record reviewed: Outpatient record, Prior outpatient labs and Prior outpatient radiology Chronic Conditions COPD Critical Care Time Critical Care Time Critical Care Time: Yes Total Critical Care Time: 30 Attestation: I personally attest to this time spent taking care of the patient. Discharge Plan Discharge Clinical Impression: Hypoxemia, COPD (chronic obstructive pulmonary disease), Viral syndrome, RSV infection Patient Disposition: Admitted As Inpatient Prescriptions: No Action olanzapine 10 mg tablet 10 mg PO BEDTIME simvastatin 80 mg tablet 80 mg PO DAILY citalopram 20 mg tablet 30 mg PO BEDTIME divalproex 500 mg tablet extended release 24 hr 1,000 mg PO DAILY albuterol sulfate [ProAir HFA] 90 mcg/actuation HFA aerosol inhaler 2 puff inhalation Q6H PRN (Reason: shortness of breath or wheezing) Qty: 18 0RF prednisone 20 mg tablet 40 mg PO DAILY Qty: 8 0RF levofloxacin 750 mg tablet 750 mg PO DAILY Qty: 14 0RF
[2023-02-19 22:47] LABS: MANUAL DIFF FLAG NO
[2023-02-19 22:49] LABS: Basophils Absolute Auto 0.1 X10*3/uL (0.0-0.2); Eosinophils Percent Auto 0.1 % (0-4); Hematocrit 51.4 % (42.0-52.0); Imm Gran Abs Auto 0.01 X10*3/uL (0.00-0.03); Imm Gran Pct Auto 0.1 % (0.0-0.4); Lymphocytes Absolute Auto 1.5 X10*3/uL (1.2-4.9); Mean Corpuscular Hemoglobin 32.4 pg (27.0-33.0); Mean Corpuscular Volume 92.6 fL (80.0-98.0); Mean Platelet Volume 9.3 fL (9.4-12.4); Monocytes Percent Auto 15.5 % (2-11); Neutrophils Percent Auto 60.3 % (45-73); Platelet Count 184 X10*3/uL (160-400); Red Blood Count 5.55 X10*6/uL (4.60-5.80); Red Cell Distribution Width 13.2 % (11.0-16.0); White Blood Count 6.7 X10*3/uL (4.8-10.8)
[2023-02-19 22:53] LABS: VBG HCO3 29 mmol/L (22-26); VBG pCO2 60 mmHg; VBG pH 7.29 (7.32-7.43); VBG pO2 37 mmHg
[2023-02-19 22:54] LABS: Venous Blood Gas Refer to POC result
[2023-02-19 23:08] LABS: Alanine Aminotransferase 26 U/L (0-40); Albumin Level 4.3 g/dL (3.5-5.0); Alkaline Phosphatase 59 U/L (39-117); Anion Gap 15 (12-20); Aspartate Amino Transferase 36 U/L (5-37); Bilirubin Direct 0.2 mg/dL (0.0-0.5); Bilirubin Total 0.4 mg/dL (0.0-1.0); Blood Urea Nitrogen 18 mg/dL (9-16); Calcium 9.8 mg/dL (8.4-10.2); Carbon Dioxide 28 mmol/L (22-29); Chloride 98 mmol/L (96-108); Creatinine Clr Calc Pharmacy 65.7; Estimated Glomerular Filt Rate > 60; Glucose Random 99 mg/dL (60-115); Lipase 23 U/L (8-78); Potassium 4.1 mmol/L (3.3-5.1); Sodium 137 mmol/L (135-145); Total Protein 8.3 g/dL (6.5-8.0)
[2023-02-19 23:09] LABS: Lactic Acid 2.5 mmol/L (0.5-2.0)
[2023-02-19 23:15] LABS: Troponin-I High Sensitivity 8.6 ng/L (<3.5-35.0)
[2023-02-19 23:27] LABS: Influenza A PCR NEGATIVE (Negative); Influenza B PCR NEGATIVE (Negative); Resp Syncy Virus RNA Qual PCR POSITIVE (Negative); SARS COV2 PCR INHOUSE NEGATIVE (Negative)
[2023-02-19 23:47] VITALS: BP 115/61; PULSE 79; RESP 25; O2SAT 92
[2023-02-20 00:25] VITALS: BP 124/64; PULSE 83; RESP 25; O2SAT 95
[2023-02-20 00:36] LABS: Venous Blood Gas Refer to POC result
[2023-02-20 00:36] LABS: VBG Base Excess 1.6 mmol/L; VBG HCO3 28 mmol/L (22-26); VBG pCO2 52 mmHg; VBG pH 7.34 (7.32-7.43); VBG pO2 47 mmHg
[2023-02-20 00:45] LABS: Reflex Lactate? Lactic Acid Added
--- NOTE | 2023-02-20 00:58 | P.HPHOSP_ITS ---
History of Present Illness Date of Service: 02/20/23 Chief Complaint: sob 67M PMH COPD, bipolar, hld, presented with sob. patient reports feeling ill for about 3-4 days prior to presentation. reports daughter having similar sympotoms. subjective fever, lethargy, cough, wheezing and sob. patient denies chest pain, abd pain, n/v/d. in ED noted to be hypoxic on room air, RSV positive, cxr with hyperinflation but no infiltrate. Review of Systems 2 Review of Systems: Yes all other systems are reviewed and are negative [facility] Medical History Personal history of nicotine dependence Abnormal CT scan, gallbladder (~02/2020) COPD (chronic obstructive pulmonary disease) Bacteremia (~02/2020) Bipolar 1 disorder Hyperlipemia Surgical History History of skin graft Social History Household Members: Spouse Housing: House Do you presently have visiting nurse or other home services: No Alcohol intake: never Comment: MED SURG OVERFLOW Patient Tobacco Use Status: Current everyday Tobacco user Tobacco use type: Cigarette Cigarettes Per Day: 50 Years Smoked: 50 (onset 15, 2+PPD x 50yrs, 100PYH) Smoked in Last 30 Days: Yes Second Hand Smoke Exposure: No Use of substances other than those prescribed or required for medical reasons: Yes Substance Use Type: Marijuana Advance Directives: No service: No Current occupational status: retired Meds Allergies Allergy/AdvReac Type Severity Reaction Status Date / Time No Known Allergies Allergy Verified 03/02/20 00:34 Active Medications: Current Medications Divalproex Sodium (Divalproex Sodium Er 500 Mg Tab.Er.24h) 1,000 mg PO DAILY FRAN Non-Formulary Medication (Citalopram) 30 mg PO BEDTIME FRAN Non-Formulary Medication (Simvastatin) 80 mg PO DAILY FRAN Olanzapine (Olanzapine 10 Mg Tablet) 10 mg PO BEDTIME FRAN Home Medications Medication Instructions Recorded Confirmed Last Taken Type citalopram 20 mg tablet 30 mg PO BEDTIME 03/02/20 02/20/23 02/29/20 21:00 History divalproex 500 mg tablet,extended 1,000 mg PO DAILY 03/02/20 02/20/23 02/29/20 21:00 History release 24 hr olanzapine 10 mg tablet 10 mg PO BEDTIME 03/02/20 02/20/23 02/29/20 21:00 History simvastatin 80 mg tablet 80 mg PO DAILY 03/02/20 02/20/23 02/29/20 21:00 History Physical Exam 2 Vital Signs and Narrative: Vital Signs: Last Vital Signs Temp 98.8 F 02/19/23 22:00 Pulse 83 02/20/23 00:25 Resp 25 H 02/20/23 00:25 BP 124/64 02/20/23 00:25 Pulse Ox 95 02/20/23 00:25 O2 Del Method Room Air 02/20/23 00:25 O2 Flow Rate 3 02/19/23 23:47 Oxygen Flow Rate 2 02/19/23 21:31 BMI result Body Mass Index 23.9 General: AO X 3, no acute distress Resp: diffuse wheezing bilateral, no accessory muscles used CVS: S1,S2,RRR GI: soft, non tender, non distended Neuro: motor grossly intact, alert Psych: appropriate affect, appropriate insight Results Labs 02/19/23 22:38 02/19/23 22:38 Labs: Laboratory Results - last 24 hr 02/19/23 02/19/23 02/19/23 22:37 22:38 22:45 MCV 92.6 MCH 32.4 MCHC 35.0 RDW 13.2 Plt Count 184 MPV 9.3 L Immature Gran % (Auto) 0.1 Neut % (Auto) 60.3 Lymph % (Auto) 23.0 [place] % (Auto) 15.5 H Eos % (Auto) 0.1 Baso % (Auto) 1.0 Lymph # (Auto) 1.5 [place] # (Auto) 1.0 Eos # (Auto) 0.0 Baso # (Auto) 0.1 Abs Immat Gran (auto) 0.01 Absolute Neuts (auto) 4.0 Absolute Nucleated RBC 0.000 Nucleated RBC % (auto) 0.0 VBG pH Cancelled 7.29 L VBG pCO2 Cancelled 60 VBG pO2 Cancelled 37 VBG HCO3 Cancelled 29 H VBG O2 Saturation Cancelled 50.0 VBG Base Excess Cancelled 1.0 Anion Gap 15 Estim Creat Clear Calc 65.7 Estimated GFR > 60 Random Glucose 99 Lactic Acid 2.5 H* Calcium 9.8 D Total Bilirubin 0.4 Direct Bilirubin 0.2 AST 36 ALT 26 Alkaline Phosphatase 59 Total Protein 8.3 H Albumin 4.3 Lipase 23 Influenza Type A (PCR) NEGATIVE Influenza Type B (PCR) NEGATIVE RSV RNA Qual (PCR) POSITIVE A SARS-CoV-2 RNA (RT-PCR) NEGATIVE 02/20/23 00:29 MCV MCH MCHC RDW Plt Count MPV Immature Gran % (Auto) Neut % (Auto) Lymph % (Auto) [place] % (Auto) Eos % (Auto) Baso % (Auto) Lymph # (Auto) [place] # (Auto) Eos # (Auto) Baso # (Auto) Abs Immat Gran (auto) Absolute Neuts (auto) Absolute Nucleated RBC Nucleated RBC % (auto) VBG pH 7.34 VBG pCO2 52 VBG pO2 47 VBG HCO3 28 H VBG O2 Saturation 72.0 VBG Base Excess 1.6 Anion Gap Estim Creat Clear Calc Estimated GFR Random Glucose Lactic Acid Calcium Total Bilirubin Direct Bilirubin AST ALT Alkaline Phosphatase Total Protein Albumin Lipase Influenza Type A (PCR) Influenza Type B (PCR) RSV RNA Qual (PCR) SARS-CoV-2 RNA (RT-PCR) Imaging Radiologist's Impressions: Impressions Chest X-Ray 02/19/23 21:50 IMPRESSION: Hyperinflation. No focal consolidation or pleural effusion. Assessment and Plan (1) RSV infection: Status: Acute Plan 67M PMH COPD, bipolar, hld, presented with sob acute hypoxic respiratory failure due to copd with acute decompensation due to RSV solumderol, duonebs, azithro, wean o2 as tolerated lactic acidosis due to albuterol, not sepsis bipolar olanzapine, depakote, celexa hld statin dvt prophylaxis- lovenox full code patient with copd exacerabtion due to rsv requiring o2 supplementation, based on severity of his symptoms, will likely require atleast 2 midnights inpatient. Quality Stroke Does the patient have a stroke diagnosis?: No VTE Prior VTE?: No VTE Risk Level:: Medical - moderate - high VTE Device Contraindication: Treatment Not Indicated VTE Drug Contraindication: N/A - Med Ordered
[2023-02-20 03:19] LABS: ~Lactic Acid-LAB USE ONLY 1.5 mmol/L (0.5-2.0)
[2023-02-20 05:45] VITALS: BP 136/67; PULSE 72; RESP 16; TEMP 36.9; O2SAT 96; BMI 22.8
--- NOTE | 2023-02-20 06:31 | PC.NURSE ---
PATIENT ADMITTED VIA STRETCHER FROM ED SETTING AT 0545. PT ALERT AND ORIENTED, CALM,AND COOPERATIVE. O2 VIA N/C AT 3 LITERS, NO S/SX RESP DISTRESS, BUT NOTED SOB WITH ACTIVITY THAT RESOLVES AT REST. LUNG VALENTE WITH INS/EXP WHEEZES, OCCAS DRY COUGH, BUT DENIED CHEST PAIN OR PRESSURE. PRECAUTIONS INITIATED DUE TO RSV DX. VSS, ADMISSION ASSESSMENT COMPLETED, URINAL AT BEDSIDE, CALL HAGEN AND BED CONTROLS REVIEWED WITH PATIENT.
--- NOTE | 2023-02-20 07:32 | PHA.MEDREC ---
Pharmacy Consult ? Medication Reconciliation Pharmacy has completed the medication reconciliation.
[2023-02-20 07:41] VITALS: BP 128/76; PULSE 76; RESP 18; TEMP 36.9; O2SAT 96
--- NOTE | 2023-02-20 08:54 | MHC.CM.PN ---
IMM DELIVERED. PATIENT FROM HOME WITH . INDEPENDENT, NO SERVICES. PCP: WALKER MATA MD HCP: COMPLETED WITH PATIENT, NAMED [employer]ENT. ORIGINAL PROVIDED TO PATIENT, COPY PLACED IN CHART. DCP: GOAL IS HOME, SELF CARE, PRIVATE TRANSPORT. CM WILL CONTINUE TO FOLLOW.
[2023-02-20] MEDS: Azithromycin 500 MG TABLET PO (09:34)
[2023-02-20] MEDS: methylPREDNISolone Sod Succ 40 MG/ML VIAL IVPUSH ×2 (09:34→20:18)
[2023-02-20] MEDS: Divalproex Sodium ER 500 MG TAB.ER.24H 1000 MG PO (09:34)
[2023-02-20] MEDS: Atorvastatin Calcium 40 MG TABLET PO (09:35)
[2023-02-20] MEDS: Enoxaparin Sodium 40 MG/0.4 ML SYRINGE SUBCUT (09:35)
--- NOTE | 2023-02-20 11:13 | P.PNIM_ITS ---
Subjective Subjective Date of Service: 02/20/23 Interval History: wheezing resolved, still hypoxic Review of Systems Review of Systems: Yes all other systems are reviewed and are negative Physical Exam 2 Vital Signs: Vital Signs: Last Vital Signs Temp 98.5 F 02/20/23 07:41 Pulse 76 02/20/23 07:41 Resp 18 02/20/23 07:41 BP 128/76 02/20/23 07:41 Pulse Ox 96 02/20/23 07:41 O2 Del Method Nasal Cannula 02/20/23 07:41 O2 Flow Rate 3 02/20/23 07:41 Oxygen Flow Rate 2 02/19/23 21:31 BMI result Body Mass Index 22.8 Gen: in no acute distress HEENT: sclera anicteric, moist mucus membranes Neck: supple Lungs: diminished Heart: regular rate and rhythm, no murmurs Abd: soft, non-tender, non-distended Ext: no edema Skin: warm/well-perfused Neuro: alert and oriented x3, no focal findings Psych: appropriate affect Objective Data Active Medications Albuterol/Ipratropium (Albuterol/Iprat 2.5/0.5mg 3 Ml Ampul.Neb) 3 ml INHALE RQ4H WHILE AWAKE PRN PRN Reason: sob Atorvastatin Calcium (Atorvastatin Calcium 40 Mg Tablet) 40 mg PO DAILY [facility] Last Admin: 02/20/23 09:35 Dose: 40 mg Documented By: ZOILA Azithromycin (Azithromycin 500 Mg Tablet) 500 mg PO Q24H [facility] Last Admin: 02/20/23 09:34 Dose: 500 mg Documented By: ZOILA Divalproex Sodium (Divalproex Sodium Er 500 Mg Tab.Er.24h) 1,000 mg PO DAILY [facility] Last Admin: 02/20/23 09:34 Dose: 1,000 mg Documented By: ZOILA Enoxaparin Sodium (Enoxaparin Sodium 40 Mg/0.4 Ml Syringe) 40 mg SUBCUT Q24H [facility] Last Admin: 02/20/23 09:35 Dose: 40 mg Documented By: ZOILA Escitalopram Oxalate (Escitalopram Oxalate 5 Mg Tablet) 15 mg PO BEDTIME [facility] Methylprednisolone Sodium Succinate (Methylprednisolone Sod Succ 40 Mg/Ml Vial) 40 mg IVPUSH Q12H [facility] Last Admin: 02/20/23 09:34 Dose: 40 mg Documented By: ZOILA Olanzapine (Olanzapine 10 Mg Tablet) 10 mg PO BEDTIME FRAN Sodium Chloride (0.9 % Sodium Chloride Flush 3 Ml Syringe) 3 ml IVFLUSH QSHIFT [facility] Last Admin: 02/20/23 09:42 Dose: Not Given Documented By: ZOILA Non-Admin Reason: Previously Administered Labs 02/19/23 22:38 02/19/23 22:38 Labs: Laboratory Results - last 24 hr 02/19/23 02/19/23 02/19/23 22:37 22:38 22:45 MCV 92.6 MCH 32.4 MCHC 35.0 RDW 13.2 Plt Count 184 MPV 9.3 L Immature Gran % (Auto) 0.1 Neut % (Auto) 60.3 Lymph % (Auto) 23.0 [place] % (Auto) 15.5 H Eos % (Auto) 0.1 Baso % (Auto) 1.0 Lymph # (Auto) 1.5 [place] # (Auto) 1.0 Eos # (Auto) 0.0 Baso # (Auto) 0.1 Abs Immat Gran (auto) 0.01 Absolute Neuts (auto) 4.0 Absolute Nucleated RBC 0.000 Nucleated RBC % (auto) 0.0 VBG pH Cancelled 7.29 L VBG pCO2 Cancelled 60 VBG pO2 Cancelled 37 VBG HCO3 Cancelled 29 H VBG O2 Saturation Cancelled 50.0 VBG Base Excess Cancelled 1.0 Anion Gap 15 Estim Creat Clear Calc 65.7 Estimated GFR > 60 Random Glucose 99 Lactic Acid 2.5 H* Lactic Acid F/U @ 2Hr Calcium 9.8 D Total Bilirubin 0.4 Direct Bilirubin 0.2 AST 36 ALT 26 Alkaline Phosphatase 59 Total Protein 8.3 H Albumin 4.3 Lipase 23 Influenza Type A (PCR) NEGATIVE Influenza Type B (PCR) NEGATIVE RSV RNA Qual (PCR) POSITIVE A SARS-CoV-2 RNA (RT-PCR) NEGATIVE 02/20/23 02/20/23 00:29 03:03 MCV MCH MCHC RDW Plt Count MPV Immature Gran % (Auto) Neut % (Auto) Lymph % (Auto) [place] % (Auto) Eos % (Auto) Baso % (Auto) Lymph # (Auto) [place] # (Auto) Eos # (Auto) Baso # (Auto) Abs Immat Gran (auto) Absolute Neuts (auto) Absolute Nucleated RBC Nucleated RBC % (auto) VBG pH 7.34 VBG pCO2 52 VBG pO2 47 VBG HCO3 28 H VBG O2 Saturation 72.0 VBG Base Excess 1.6 Anion Gap Estim Creat Clear Calc Estimated GFR Random Glucose Lactic Acid Lactic Acid F/U @ 2Hr 1.5 Calcium Total Bilirubin Direct Bilirubin AST ALT Alkaline Phosphatase Total Protein Albumin Lipase Influenza Type A (PCR) Influenza Type B (PCR) RSV RNA Qual (PCR) SARS-CoV-2 RNA (RT-PCR) Assessment and Plan (1) RSV infection: Status: Acute Plan d2 67yo M with COPD, bipolar depression, HLD presenting with dyspnea, admitted for hypoxia acute hypoxic respiratory failure due to COPD exacerbation due to RSV infection - continue methylprednisolone + azithromycin both d2, nebs - supplemental O2, wean as tolerated - lactic acidosis due to albuterol, not sepsis bipolar depression - continue escitalopram, valproate, olanzapine HLD - continue statin VTE ppx - LMWH dispo - anticipate home in next 1-2d In my clinical judgment, the patient requires continued inpatient hospitalization for the following reasons: hypoxia Total time managing care of this patient today: 35 minutes. Quality Stroke Does the patient have a stroke diagnosis?: No VTE Prior VTE?: No VTE Risk Level:: Medical - moderate - high VTE Device Contraindication: Treatment Not Indicated VTE Drug Contraindication: N/A - Med Ordered
[2023-02-20 15:16] VITALS: BP 126/58; PULSE 74; RESP 20; TEMP 37; O2SAT 96
[2023-02-20 19:44] VITALS: BP 110/67; PULSE 82; RESP 20; TEMP 36.4; O2SAT 97
[2023-02-20] MEDS: Escitalopram Oxalate 5 MG TABLET 15 MG PO (20:18)
[2023-02-20] MEDS: OLANZapine 10 MG TABLET PO (20:19)
[2023-02-21 03:24] VITALS: BP 134/63; PULSE 61; RESP 18; TEMP 36.3; O2SAT 96
[2023-02-21 06:39] LABS: Hemoglobin 17.8 g/dl (14.0-18.0); Mean Corpuscular HGB Conc 34.2 g/dl (31.0-36.0); Mean Corpuscular Hemoglobin 32.7 pg (27.0-33.0); Mean Corpuscular Volume 95.4 fL (80.0-98.0); Mean Platelet Volume 9.9 fL (9.4-12.4); Platelet Count 192 X10*3/uL (160-400); Red Blood Count 5.45 X10*6/uL (4.60-5.80); Red Cell Distribution Width 13.3 % (11.0-16.0); White Blood Count 10.4 X10*3/uL (4.8-10.8)
[2023-02-21 07:13] LABS: Anion Gap 16 (12-20); Blood Urea Nitrogen 33 mg/dL (9-16); Calcium 9.9 mg/dL (8.4-10.2); Carbon Dioxide 29 mmol/L (22-29); Chloride 102 mmol/L (96-108); Estimated Glomerular Filt Rate > 60; Glucose Fasting 119 mg/dL (60-99); Potassium 5.5 mmol/L (3.3-5.1); Sodium 141 mmol/L (135-145)
[2023-02-21 08:00] VITALS: BP 142/72; PULSE 96; RESP 16; TEMP 36.8; O2SAT 92
[2023-02-21] MEDS: Azithromycin 500 MG TABLET PO (09:10)
[2023-02-21] MEDS: methylPREDNISolone Sod Succ 40 MG/ML VIAL IVPUSH (09:10)
[2023-02-21] MEDS: Enoxaparin Sodium 40 MG/0.4 ML SYRINGE SUBCUT (09:10)
[2023-02-21] MEDS: Divalproex Sodium ER 500 MG TAB.ER.24H 1000 MG PO (09:10)
[2023-02-21] MEDS: Atorvastatin Calcium 40 MG TABLET PO (09:10)
[2023-02-21] MEDS: 0.9 % Sodium Chloride Flush 3 ML SYRINGE IVFLUSH ×2 (09:16→19:39)
--- NOTE | 2023-02-21 11:18 | MHC.CM.PN ---
EMR REVIEWED AND PER MD ROUNDS NOT MEDICALLY CLEARED FOR DC TODAY. CM WILL CONTINUE TO FOLLOW.
--- NOTE | 2023-02-21 12:55 | P.PNIM_ITS ---
Subjective Subjective Date of Service: 02/21/23 Interval History: Patient states short of breath with minimal exertion. Nonproductive cough. Essentially no change since admission Review of Systems Denies chest pain Admits shortness of breath with minimal exertion Denies nausea vomiting diarrhea Denies fever chills Physical Exam 2 Vital Signs: Vital Signs: Last Vital Signs Temp 98.2 F 02/21/23 08:00 Pulse 96 02/21/23 08:00 Resp 16 02/21/23 08:00 BP 142/72 H 02/21/23 08:00 Pulse Ox 92 02/21/23 08:00 O2 Del Method Nasal Cannula 02/21/23 08:00 O2 Flow Rate 2.0 02/21/23 08:00 Oxygen Flow Rate 2 02/19/23 21:31 BMI result Body Mass Index 22.8 Const: Other: Awake alert able to speak in full sentences Resp: Other: Diminished throughout with dense expiratory wheezes all buitrago Cardio: Other: No S4; positive S1-S2; no S3 murmurs rubs or gallops GI: Other: Soft nontender nondistended normoactive bowel sounds Neuro: Other: Cranial nerves 2-12 grossly intact as tested. Motor is 5/5 all extremities. Sensation is intact. Cognition appropriate Extrem: Other: No edema bilaterally Objective Data Active Medications Albuterol/Ipratropium (Albuterol/Iprat 2.5/0.5mg 3 Ml Ampul.Neb) 3 ml INHALE RQ4H WHILE AWAKE PRN PRN Reason: sob Atorvastatin Calcium (Atorvastatin Calcium 40 Mg Tablet) 40 mg PO DAILY [facility] Last Admin: 02/21/23 09:10 Dose: 40 mg Documented By: ZOILA Azithromycin (Azithromycin 500 Mg Tablet) 500 mg PO Q24H [facility] Last Admin: 02/21/23 09:10 Dose: 500 mg Documented By: ZOILA Divalproex Sodium (Divalproex Sodium Er 500 Mg Tab.Er.24h) 1,000 mg PO DAILY [facility] Last Admin: 02/21/23 09:10 Dose: 1,000 mg Documented By: ZOILA Enoxaparin Sodium (Enoxaparin Sodium 40 Mg/0.4 Ml Syringe) 40 mg SUBCUT Q24H [facility] Last Admin: 02/21/23 09:10 Dose: 40 mg Documented By: ZOILA Escitalopram Oxalate (Escitalopram Oxalate 5 Mg Tablet) 15 mg PO BEDTIME [facility] Last Admin: 02/20/23 20:18 Dose: 15 mg Documented By: MAUREEN Olanzapine (Olanzapine 10 Mg Tablet) 10 mg PO BEDTIME [facility] Last Admin: 02/20/23 20:19 Dose: 10 mg Documented By: MAUREEN Sodium Chloride (0.9 % Sodium Chloride Flush 3 Ml Syringe) 3 ml IVFLUSH QSHIFT [facility] Last Admin: 02/21/23 09:16 Dose: 3 ml Documented By: ZOILA Labs 02/21/23 05:52 02/21/23 05:52 Labs: Laboratory Results - last 24 hr 02/21/23 05:52 MCV 95.4 MCH 32.7 MCHC 34.2 RDW 13.3 Plt Count 192 MPV 9.9 Absolute Nucleated RBC 0.000 Nucleated RBC % (auto) 0.0 Anion Gap 16 Estim Creat Clear Calc 68.0 Estimated GFR > 60 Fasting Glucose 119 H Calcium 9.9 Microbiology Microbiology Results: Microbiology 02/19/23 22:38 Blood Culture - Preliminary Blood - Venous No growth after 24 hours. 02/19/23 22:38 Blood Culture - Preliminary Blood - Venous No growth after 24 hours. Assessment and Plan (1) RSV infection: Status: Acute (2) COPD (chronic obstructive pulmonary disease): Status: Acute Plan 67yo M with COPD, bipolar depression, HLD,presenting with dyspnea, admitted for hypoxia secondary to RSV infection 1Acute hypoxic respiratory failure secondary to COPD exacerbation/RSV infection -methylprednisolone increase to 60 q.6 given exam -supplemental O2 to maintain sats greater than equal 90% -DuoNebs q.4 hours 2.Bipolar depression -well compensated at this time -continue escitalopram, valproate, olanzapine LMWH Full code Patient will require ongoing hospitalization for IV steroids to treat COPD exacerbation requiring O2 Quality Stroke Does the patient have a stroke diagnosis?: No VTE Prior VTE?: No VTE Risk Level:: Medical - moderate - high VTE Device Contraindication: Treatment Not Indicated VTE Drug Contraindication: N/A - Med Ordered
[2023-02-21] MEDS: methylPREDNISolone Sod Succ 125 MG/2 ML VIAL 60 MG IVPUSH ×2 (13:31→18:41)
[2023-02-21] MEDS: Sodium Zirconium Cyclosilicate 10 GM POWD.PACK PO (13:31)
[2023-02-21 16:00] VITALS: BP 131/65; PULSE 74; RESP 20; TEMP 36.6; O2SAT 92
[2023-02-21] MEDS: OLANZapine 10 MG TABLET PO (19:38)
[2023-02-21] MEDS: Escitalopram Oxalate 5 MG TABLET 15 MG PO (19:38)
[2023-02-21 19:52] VITALS: BP 122/57; PULSE 61; RESP 19; TEMP 36.2; O2SAT 94
[2023-02-22] VITALS (8 sets, daily range): BP systolic 108–130; BP diastolic 57–69; PULSE 63–66; RESP 16–18; TEMP 36.1–37.1; O2SAT 88–92
[2023-02-22] MEDS: methylPREDNISolone Sod Succ 125 MG/2 ML VIAL 60 MG IVPUSH ×4 (00:05→18:16)
[2023-02-22] MEDS: Melatonin 3 MG TABLET 6 MG PO ×2 (00:05→22:29)
--- NOTE | 2023-02-22 01:44 | PC.NURSE ---
Pt requested for sleep med, Dr. Monroy was made aware, Melatonin po given, pt slept after.
[2023-02-22 06:17] LABS: MANUAL DIFF FLAG NO
[2023-02-22 06:44] LABS: Basophils Percent Auto 0.1 % (0-2); Hematocrit 47.9 % (42.0-52.0); Hemoglobin 16.3 g/dl (14.0-18.0); Imm Gran Abs Auto 0.09 X10*3/uL (0.00-0.03); Imm Gran Pct Auto 0.6 % (0.0-0.4); Lymphocytes Absolute Auto 1.7 X10*3/uL (1.2-4.9); Lymphocytes Percent Auto 11.5 % (20-40); Mean Corpuscular Hemoglobin 31.9 pg (27.0-33.0); Mean Corpuscular Volume 93.7 fL (80.0-98.0); Mean Platelet Volume 9.9 fL (9.4-12.4); Monocytes Absolute Auto 0.3 X10*3/uL (0.1-1.2); Monocytes Percent Auto 2.1 % (2-11); Neutrophils Absolute Auto 12.4 x10*3/uL (2.0-8.3); Neutrophils Percent Auto 85.7 % (45-73); Platelet Count 185 X10*3/uL (160-400); Red Blood Count 5.11 X10*6/uL (4.60-5.80); Red Cell Distribution Width 13.3 % (11.0-16.0); White Blood Count 14.5 X10*3/uL (4.8-10.8)
[2023-02-22 06:52] LABS: Alanine Aminotransferase 21 U/L (0-40); Albumin Level 3.4 g/dL (3.5-5.0); Alkaline Phosphatase 53 U/L (39-117); Anion Gap 15 (12-20); Aspartate Amino Transferase 26 U/L (5-37); Bilirubin Total 0.3 mg/dL (0.0-1.0); Blood Urea Nitrogen 32 mg/dL (9-16); Calcium 9.1 mg/dL (8.4-10.2); Carbon Dioxide 29 mmol/L (22-29); Chloride 99 mmol/L (96-108); Creatinine Clr Calc Pharmacy 58.6; Estimated Glomerular Filt Rate > 60; Glucose Fasting 140 mg/dL (60-99); Potassium 4.5 mmol/L (3.3-5.1); Sodium 138 mmol/L (135-145); Total Protein 6.6 g/dL (6.5-8.0)
[2023-02-22] MEDS: Divalproex Sodium ER 500 MG TAB.ER.24H 1000 MG PO (08:26)
[2023-02-22] MEDS: Azithromycin 500 MG TABLET PO (08:26)
[2023-02-22] MEDS: Enoxaparin Sodium 40 MG/0.4 ML SYRINGE SUBCUT (08:26)
[2023-02-22] MEDS: Atorvastatin Calcium 40 MG TABLET PO (08:26)
[2023-02-22] MEDS: 0.9 % Sodium Chloride Flush 3 ML SYRINGE IVFLUSH (08:27)
--- NOTE | 2023-02-22 13:17 | P.PNIM_ITS ---
Subjective Subjective Date of Service: 02/22/23 Interval History: Still feels poorly; still short of breath with minimal exertion Review of Systems Denies chest pain Admits shortness of breath with minimal exertion Denies nausea vomiting diarrhea Denies fever chills Physical Exam 2 Vital Signs: Vital Signs: Last Vital Signs Temp 97 F 02/22/23 07:00 Pulse 65 02/22/23 07:00 Resp 16 02/22/23 07:00 BP 126/63 02/22/23 07:00 Pulse Ox 92 02/22/23 11:39 O2 Del Method Room Air 02/22/23 11:39 O2 Flow Rate 2 02/22/23 07:00 Oxygen Flow Rate 2 02/19/23 21:31 BMI result Body Mass Index 22.8 Const: Other: Awake alert able to speak in full sentences Resp: Other: Diminished throughout with dense expiratory wheezes all buitrago Cardio: Other: No S4; positive S1-S2; no S3 murmurs rubs or gallops GI: Other: Soft nontender nondistended normoactive bowel sounds Neuro: Other: Cranial nerves 2-12 grossly intact as tested. Motor is 5/5 all extremities. Sensation is intact. Cognition appropriate Extrem: Other: No edema bilaterally Objective Data Active Medications Albuterol/Ipratropium (Albuterol/Iprat 2.5/0.5mg 3 Ml Ampul.Neb) 3 ml INHALE RQ4H WHILE AWAKE PRN PRN Reason: sob Atorvastatin Calcium (Atorvastatin Calcium 40 Mg Tablet) 40 mg PO DAILY [facility] Last Admin: 02/22/23 08:26 Dose: 40 mg Documented By: COTEMA Azithromycin (Azithromycin 500 Mg Tablet) 500 mg PO Q24H [facility] Last Admin: 02/22/23 08:26 Dose: 500 mg Documented By: COTEMA Divalproex Sodium (Divalproex Sodium Er 500 Mg Tab.Er.24h) 1,000 mg PO DAILY [facility] Last Admin: 02/22/23 08:26 Dose: 1,000 mg Documented By: NOVA.[email or web address] Enoxaparin Sodium (Enoxaparin Sodium 40 Mg/0.4 Ml Syringe) 40 mg SUBCUT Q24H [facility] Last Admin: 02/22/23 08:26 Dose: 40 mg Documented By: COTEMA Escitalopram Oxalate (Escitalopram Oxalate 5 Mg Tablet) 15 mg PO BEDTIME [facility] Last Admin: 02/21/23 19:38 Dose: 15 mg Documented By: VICENTA Lactated Ringer's (Lr) 1,000 mls @ 125 mls/hr IVCONT .Q8H [facility] Melatonin (Melatonin 3 Mg Tablet) 6 mg PO BEDTIME PRN PRN Reason: Insomnia Last Admin: 02/22/23 00:05 Dose: 6 mg Documented By: KATLINILFabaino Methylprednisolone Sodium Succinate (Methylprednisolone Sod Succ 125 Mg/2 Ml Vial) 60 mg IVPUSH Q6H [facility] Last Admin: 02/22/23 12:39 Dose: 60 mg Documented By: MARY LOU Olanzapine (Olanzapine 10 Mg Tablet) 10 mg PO BEDTIME [facility] Last Admin: 02/21/23 19:38 Dose: 10 mg Documented By: VICENTA Sodium Chloride (0.9 % Sodium Chloride Flush 3 Ml Syringe) 3 ml IVFLUSH QSHIFT [facility] Last Admin: 02/22/23 08:27 Dose: 3 ml Documented By: MARY LOU Labs 02/22/23 06:00 02/22/23 06:00 Labs: Laboratory Results - last 24 hr 02/22/23 06:00 MCV 93.7 MCH 31.9 MCHC 34.0 RDW 13.3 Plt Count 185 MPV 9.9 Immature Gran % (Auto) 0.6 H Neut % (Auto) 85.7 H Lymph % (Auto) 11.5 L [place] % (Auto) 2.1 Eos % (Auto) 0.0 Baso % (Auto) 0.1 Lymph # (Auto) 1.7 [place] # (Auto) 0.3 Eos # (Auto) 0.0 Baso # (Auto) 0.0 Abs Immat Gran (auto) 0.09 H Absolute Neuts (auto) 12.4 H Absolute Nucleated RBC 0.000 Nucleated RBC % (auto) 0.0 Anion Gap 15 Estim Creat Clear Calc 58.6 Estimated GFR > 60 Fasting Glucose 140 H Calcium 9.1 D Total Bilirubin 0.3 AST 26 ALT 21 Alkaline Phosphatase 53 Total Protein 6.6 Albumin 3.4 L Microbiology Microbiology Results: Microbiology 02/19/23 22:38 Blood Culture - Preliminary Blood - Venous No growth after 48 hours. 02/19/23 22:38 Blood Culture - Preliminary Blood - Venous No growth after 48 hours. Assessment and Plan (1) Acute hypoxic respiratory failure: Status: Acute (2) RSV infection: Status: Acute (3) COPD (chronic obstructive pulmonary disease): Status: Acute Plan 67yo M with COPD, bipolar depression, HLD,presenting with dyspnea, admitted for hypoxia secondary to RSV infection 1Acute hypoxic respiratory failure secondary to COPD exacerbation/RSV infection -methylprednisolone increase to 60 q.6 ... Likely culprit of leukocytosis -supplemental O2 to maintain sats greater than equal 90% -DuoNebs q.4 hours 2.Bipolar depression -well compensated at this time -continue escitalopram, valproate, olanzapine LMWH Full code Patient will require ongoing hospitalization for IV steroids to treat COPD exacerbation requiring O2 Quality Stroke Does the patient have a stroke diagnosis?: No VTE Prior VTE?: No VTE Risk Level:: Medical - moderate - high VTE Device Contraindication: Treatment Not Indicated VTE Drug Contraindication: N/A - Med Ordered
[2023-02-22] MEDS: Lactated Ringers 1,000 ML 125 ML IVCONT ×2 (13:36→19:30)
[2023-02-22] MEDS: Albuterol/Iprat 2.5/0.5MG 3 ML AMPUL.NEB INHALE ×2 (16:58→19:48)
[2023-02-22] MEDS: OLANZapine 10 MG TABLET PO (19:29)
[2023-02-22] MEDS: Escitalopram Oxalate 5 MG TABLET 15 MG PO (19:29)
[2023-02-22] MEDS: Albuterol Sulfate (0.083%) 2.5 MG/3 ML VIAL.NEB INHALE (23:51)
[2023-02-23] MEDS: methylPREDNISolone Sod Succ 125 MG/2 ML VIAL 60 MG IVPUSH ×2 (01:00→05:26)
[2023-02-23] MEDS: Lactated Ringers 1,000 ML 125 ML IVCONT ×2 (03:00→08:19)
[2023-02-23 04:00] VITALS: BP 127/60; PULSE 69; TEMP 36.9; O2SAT 91
[2023-02-23 05:36] LABS: MANUAL DIFF FLAG NO
[2023-02-23 05:41] LABS: Basophils Percent Auto 0.1 % (0-2); Eosinophils Percent Auto 0.1 % (0-4); Hematocrit 42.7 % (42.0-52.0); Hemoglobin 14.8 g/dl (14.0-18.0); Imm Gran Abs Auto 0.09 X10*3/uL (0.00-0.03); Imm Gran Pct Auto 0.6 % (0.0-0.4); Lymphocytes Absolute Auto 1.4 X10*3/uL (1.2-4.9); Mean Corpuscular HGB Conc 34.7 g/dl (31.0-36.0); Mean Corpuscular Hemoglobin 32.1 pg (27.0-33.0); Mean Corpuscular Volume 92.6 fL (80.0-98.0); Mean Platelet Volume 9.6 fL (9.4-12.4); Monocytes Absolute Auto 0.5 X10*3/uL (0.1-1.2); Monocytes Percent Auto 3.4 % (2-11); Neutrophils Absolute Auto 12.3 x10*3/uL (2.0-8.3); Neutrophils Percent Auto 85.8 % (45-73); Platelet Count 153 X10*3/uL (160-400); Red Blood Count 4.61 X10*6/uL (4.60-5.80); Red Cell Distribution Width 13.2 % (11.0-16.0); White Blood Count 14.3 X10*3/uL (4.8-10.8)
[2023-02-23 05:57] LABS: Alanine Aminotransferase 15 U/L (0-40); Albumin Level 2.9 g/dL (3.5-5.0); Alkaline Phosphatase 41 U/L (39-117); Anion Gap 12 (12-20); Aspartate Amino Transferase 19 U/L (5-37); Bilirubin Total 0.2 mg/dL (0.0-1.0); Blood Urea Nitrogen 24 mg/dL (9-16); Calcium 8.5 mg/dL (8.4-10.2); Carbon Dioxide 26 mmol/L (22-29); Chloride 104 mmol/L (96-108); Estimated Glomerular Filt Rate > 60; Glucose Fasting 129 mg/dL (60-99); Potassium 4.4 mmol/L (3.3-5.1); Sodium 138 mmol/L (135-145); Total Protein 5.5 g/dL (6.5-8.0)
[2023-02-23 06:50] VITALS: BP 137/64; PULSE 65; RESP 17; TEMP 36.6; O2SAT 91
[2023-02-23] MEDS: Atorvastatin Calcium 40 MG TABLET PO (08:19)
[2023-02-23] MEDS: Azithromycin 500 MG TABLET PO (08:19)
[2023-02-23] MEDS: Divalproex Sodium ER 500 MG TAB.ER.24H 1000 MG PO (08:19)
[2023-02-23] MEDS: Enoxaparin Sodium 40 MG/0.4 ML SYRINGE SUBCUT (08:19)
[2023-02-23 08:22] VITALS: PULSE 65; RESP 18; O2SAT 91
[2023-02-23] MEDS: Albuterol/Iprat 2.5/0.5MG 3 ML AMPUL.NEB INHALE ×2 (08:22→12:24)
[2023-02-23 12:25] VITALS: PULSE 65; RESP 18; O2SAT 87
[2023-02-23 13:27] VITALS: PULSE 65; PULSE 70; PULSE 86; PULSE 91; O2SAT 85; O2SAT 86; O2SAT 87; O2SAT 93
--- NOTE | 2023-02-23 14:17 | W.MHC.F2F ---
Service Date Service Date: 02/23/23 Encounter Date of encounter: 02/23/23 Reasons for Services Signs and symptoms assessed: Respiratory status and O2 saturation Reason for correction: medication management, teach disease management and other (Monitor respiratory status and saturation) Homebound: Leaving the home is medically contraindicated at this time without the asist of a device and/or another person due th the listed conditions above and below. Reason homebound: shortness of breath with minimal effort and shortness of breath at rest Certification: Based on the above findings, I certify that this patient is confined to the home and needs intermittent correction care, physical therapy and/or speech therapy, or continues to need occupational therapy. The patient is under my care, and I have initiated the establishment of the plan of care. The patient will be followed by a physician who will periodically review the plan of care. Time Spent With Patient Time: Total time managing care of this patient today ____ minutes.
--- NOTE | 2023-02-23 14:17 | PM.DS ---
DS: Providers Provider Date of Service: 02/23/23 Date of admission: 02/20/23 00:58 Date of discharge: 02/23/23 Primary care physician: Benny Cordero MD DS: Diagnosis Discharge Diagnosis (1) Acute hypoxic respiratory failure: Status: Acute (2) RSV infection: Status: Acute (3) COPD (chronic obstructive pulmonary disease): Status: Acute DS: Summary Hospital Course Hospital Course: 67M PMH COPD, bipolar, hld, presented with sob. patient reports feeling ill for about 3-4 days prior to presentation. reports daughter having similar sympotoms. subjective fever, lethargy, cough, wheezing and sob. patient denies chest pain, abd pain, n/v/d. in ED noted to be hypoxic on room air, RSV positive, cxr with hyperinflation but no infiltrate. Hospital course Admitted to general floor given pulse dose steroids and supplemental O2. Over the next 72 hours overall he felt improved however was screened by respiratory and qualified for home O2. At this point in time he is anxious for discharge; company will deliver oxygen and a nebulizer to his house. He will be discharged on a steroid taper and DuoNebs q.4 hours. He can follow-up with his PCP as scheduled Time Attestation Discharge coordination time: Greater than 30 minutes Quality: Safe Use of Opioids Does Pt have an Active Cancer Diagnosis on the Problem List?: No Quality: Stroke Does the patient have a stroke diagnosis?: No Physical Exam Vital Signs: Vital Signs: Last Vital Signs Temp 97.8 F 02/23/23 06:50 Pulse 65 02/23/23 12:25 Resp 18 02/23/23 12:25 BP 137/64 02/23/23 06:50 Pulse Ox 91 L 02/23/23 06:50 O2 Del Method Room Air 02/23/23 06:50 O2 Flow Rate 2 02/22/23 07:00 Oxygen Flow Rate 2 02/19/23 21:31 BMI result Body Mass Index 22.8 Const: Other: Awake alert able to speak in full sentences Resp: Other: Diminished throughout with dense expiratory wheezes all buitrago Cardio: Other: No S4; positive S1-S2; no S3 murmurs rubs or gallops GI: Other: Soft nontender nondistended normoactive bowel sounds Neuro: Other: Cranial nerves 2-12 grossly intact as tested. Motor is 5/5 all extremities. Sensation is intact. Cognition appropriate Extrem: Other: No edema bilaterally DS: Data Data Completed and Pending Labs on day of discharge: Laboratory Results - last 24 hr 02/23/23 05:24 WBC 14.3 H RBC 4.61 Hgb 14.8 Hct 42.7 MCV 92.6 MCH 32.1 MCHC 34.7 RDW 13.2 Plt Count 153 L MPV 9.6 Immature Gran % (Auto) 0.6 H Neut % (Auto) 85.8 H Lymph % (Auto) 10.0 L Kemper % (Auto) 3.4 Eos % (Auto) 0.1 Baso % (Auto) 0.1 Lymph # (Auto) 1.4 Kemper # (Auto) 0.5 Eos # (Auto) 0.0 Baso # (Auto) 0.0 Abs Immat Gran (auto) 0.09 H Absolute Neuts (auto) 12.3 H Absolute Nucleated RBC 0.000 Nucleated RBC % (auto) 0.0 Sodium 138 Potassium 4.4 Chloride 104 Carbon Dioxide 26 Anion Gap 12 BUN 24 H Creatinine 0.80 Estim Creat Clear Calc 74.0 Estimated GFR > 60 Fasting Glucose 129 H Calcium 8.5 D Total Bilirubin 0.2 AST 19 ALT 15 Alkaline Phosphatase 41 Total Protein 5.5 L Albumin 2.9 L Preliminary micro results at discharge 02/19/23 22:38 Blood Culture - Preliminary Blood - Venous No growth after 48 hours. 02/19/23 22:38 Blood Culture - Preliminary Blood - Venous No growth after 48 hours. Discharge Plan Discharge Anticipated Discharge Date/Time: 02/23/23 13:42 Patient Disposition: Home Health Service Discharge Diagnosis: Acute hypoxic respiratory failure Referrals: Benny Cordero MD [Primary Care Provider] - 1 Week Discharge Medications: New prednisone 10 mg tablet See Rx Instructions .Route .COMPLEX Qty: 45 0RF Rx Instructions: 10 mg orally; 5 tabs p.o. daily x3 days; 4 tabs p.o. daily x3 days; 3 tabs daily x3 days; 2 tabs daily x3 days; 1 tab daily x3 days ipratropium-albuterol 0.5 mg-3 mg(2.5 mg base)/3 mL solution for nebulization 3 ml inhalation Q4-6H PRN (Reason: shortness of breath or wheezing) Qty: 180 5RF Continued olanzapine 10 mg tablet 10 mg PO BEDTIME simvastatin 80 mg tablet 80 mg PO DAILY citalopram 20 mg tablet 30 mg PO BEDTIME divalproex 500 mg tablet extended release 24 hr 1,000 mg PO DAILY albuterol sulfate [ProAir HFA] 90 mcg/actuation HFA aerosol inhaler 2 puff inhalation Q6H PRN (Reason: shortness of breath or wheezing) Qty: 18 0RF Discharge Orders: Discharge Order (Routine); Ordered 02/23/23 Ordered By: Delfino Evans Diet: Advance to usual diet Activity on Discharge: As tolerated Stand Alone Forms: Patient Portal Discharge page Care Plan Goals: Resume all medicines as taken before hospital You qualify for home oxygen therapy. Utilize as ordered. VNA will follow your oxygens duration Health Concerns: DuoNebs q.4 hours as needed. Complete prednisone taper as ordered Plan of Treatment: Follow-up with PCP as scheduled Assessment: See discharge summary
--- NOTE | 2023-02-23 14:24 | MHC.CM.PN ---
PT WILL DC HOME TODAY WITH [facility] FAMILY TO TRANSPORT
== END 2023-02-23 14:45 | disposition home health service (06) | DRG 190 ==
LOC: HO.ED 02-20 00:48 → HO.EDOVER 02-20 01:02 → HO.S3 02-20 04:36
PROVIDERS: Admitting Provider Internal Medicine; Emergency Provider Student in an Organized Health Care Education/Training Program; PCP Internal Medicine; Visit Provider Hospitalist
DX: J44.1 Chronic obstructive pulmonary disease with (acute) exacerbation (principal); J96.01 Acute respiratory failure with hypoxia; F31.9 Bipolar disorder, unspecified; E78.5 Hyperlipidemia, unspecified; B97.4 Respiratory syncytial virus as the cause of diseases classified elsewhere; F17.210 Nicotine dependence, cigarettes, uncomplicated; Z71.6 Tobacco abuse counseling; Z79.899 Other long term (current) drug therapy
CPT/HCPCS: 0241U; 36415; 71046; 80048; 80053; 80076; 82803; 83605; 83690; 84484; 85025; 85027; 87040; 93005; 94640; 99285; J1650; J2920; J2930; J7120

== ENCOUNTER → 2023-02-20 00:58 | Outpatient (BNV) | payer MEDICARE, SELFPAY | PROVIDERS: Admitting Provider Internal Medicine; Emergency Provider Student in an Organized Health Care Education/Training Program; PCP Internal Medicine; Visit Provider Internal Medicine | DX: J96.01 Acute respiratory failure with hypoxia (principal); B33.8 Other specified viral diseases; J44.9 Chronic obstructive pulmonary disease, unspecified | CPT/HCPCS: 99223; 99232; 99233; 99239; 99499; G0180 ==

== ENCOUNTER 2023-04-22 14:41 | Outpatient (AMB) | payer MEDICARE, SELFPAY ==
[2023-04-22 14:44] VITALS: BP 110/72; PULSE 100; O2SAT 99; BMI 25.7
--- NOTE | 2023-04-22 14:44 | MHC.OFFVIS ---
Intake Vital Signs 04/22/23 14:44 Height 5 ft 4 in Weight 150 lb BMI 25.7 BP 110/72 Blood Pressure Location Lt brachial Position Sitting Pulse 100 Pulse Source Pulse Oximeter Pulse Oximetry (%) 99 Oxygen Delivery Method Room Air Intake Visit Reasons: [employer] Dr Codrero ref for PAD s/p arterial US 11/2022 Intake Note: Pt presents to the office today for a new patient for PAD s/p arterial US 11/2022. Pt states he is feeling well. Pt states his right leg is the leg that is bothering him the most. Pt states he is not able to walk more than 100-200 feet without his leg becoming very painful. Pt states his whole right leg becomes numb as well. Allergies No Known Allergies Allergy (Verified 04/22/23 14:46) HPI [employer] Dr Cordero ref for PAD s/p arterial US 11/2022 HPI Details Very pleasant 59-year-old gentleman presents for evaluation with severe activity limiting claudication. He states over the last 6 months he can barely ambulate 100-200 feet. He reports that he has gluteal and thigh pain. He now presents for vascular evaluation. Of note noninvasive testing was obtained by primary care team. He reports that he smokes about 2 packs per day and has been smoking for the last 52 years. He is a nondiabetic. [facility] [place] Medical History COPD (chronic obstructive pulmonary disease) Personal history of nicotine dependence Abnormal CT scan, gallbladder (~02/2020) COPD (chronic obstructive pulmonary disease) Bacteremia (~02/2020) Bipolar 1 disorder Hyperlipemia Surgical History History of skin graft Social History Household Members: Spouse Housing: House Do you presently have visiting nurse or other home services: No Unable to assess alcohol history related to: Unable to respond Alcohol intake: never Comment: MED SURG OVERFLOW Patient Tobacco Use Status: Current everyday Tobacco user Tobacco use type: Cigarette Cigarette Packs Per Day: 2 Cigarettes Per Day: 40.0 Years Smoked: 50 (onset 15, 2+PPD x 50yrs, 100PYH) e-Cigarette/Vaping Use: Never Used Second Hand Smoke Exposure: No Substance Use Type: Marijuana service: No Current occupational status: retired Review of Systems Const All systems reviewed & are unremarkable except as noted in HPI and below Reports no additional complaints ENT Reports Normal hearing present Card Denies chest pain, Denies chest pain at rest, Denies chest pain with activity and Denies pedal edema Resp Denies cough GI Denies abdominal pain Musc Denies abnormal gait, Denies muscle cramps and Denies radiating pain into limb Skin/Breast Denies skin ulcer and Denies wounds Neuro Reports Normal hearing present and Denies abnormal gait Psych Reports no additional complaints Physical Exam Vital Signs: Last Vital Signs Pulse 100 04/22/23 14:44 BP 110/72 04/22/23 14:44 Pulse Ox 99 04/22/23 14:44 Oxygen Delivery Method Room Air 04/22/23 14:44 BMI result Body Mass Index 25.7 Const General: cooperative, healthy appearing and comfortable Orientation/consciousness: oriented to person, oriented to place and oriented to time HEENT Head: Yes normal to inspection Neck Neck: Yes normal visual inspection Carotids: no bruits Chest Chest palpation & inspection: normal inspection of the chest Resp Effort & Inspection: normal respiratory effort and able to speak in complete sentences Auscultation: clear to auscultation bilaterally, no crackles, no rales, no rhonchi and no wheezes Cardio Other: Left palpable DP, right side DP signal Rate: regular rate Rhythm: regular rhythm Heart sounds: S1 normal heart sound present and S2 normal heart sound present Bruits: no carotid bruits Peripheral pulses: Peripheral pulses 2+ throughout GI Inspection: Yes normal to inspection Skin Wounds: no wounds Hair: normal Neuro General: oriented to person, oriented to place and oriented to time Cranial nerves: Yes CN's II-XII intact bilaterally and Yes Normal hearing present Cognition (Neuro): normal cognition Motor exam (neuro): 5/5 motor strength present throughout Extrem Other: venous exam: No significant superficial varicosities or spider telangiectasias, minimal edema General: No clubbing, No cyanosis and No edema Psych Appearance: grossly normal Mental Status: mental status grossly normal Speech and movement: Normal speech and movement present Results Reviewed Results Reviewed: Ultrasound dated 12/11/2022 demonstrates right side iliac artery occlusions Assessment & Plan Assessment & Plan (1) PAD (peripheral artery disease): Code(s): I73.9 - Peripheral vascular disease, unspecified Plan: Patient notes leg pain when walking distances. I have discussed the pathophysiology of peripheral vascular disease with the patient. I have also discussed risk factor modification. I have reviewed the patient's arterial testing which reveals right iliac disease. the patient would benefit from a right leg endovascular peripheral angiogram with possible angioplasty, stent, and/or atherectomy. This has been discussed in detail with the patient along with risks, benefits, and complications. This includes but is not limited to bleeding, infection, heart attack, need for emergent surgical repair, limb ischemia, blood vessel damage, bleeding, puncture, kidney injury, bruising, allergic reaction, and skin reaction. The patient demonstrates a clear understanding. We will schedule for the next appropriate time. Thank you for allowing us to assist in this patient's care. Coding Level of Care Code New Pt Level 4 (80118) Diagnoses PAD (peripheral artery disease) I73.9
== END 2023-04-22 15:17 | disposition home or self-care (01) ==
PROVIDERS: PCP Internal Medicine; Visit Provider Surgery Vascular Surgery
DX: I73.9 Peripheral vascular disease, unspecified (principal)
CPT/HCPCS: 99204

== ENCOUNTER → 2023-04-22 14:41 | Outpatient (BNVA) | payer MEDICARE, SELFPAY | PROVIDERS: PCP Internal Medicine; Visit Provider Surgery Vascular Surgery | DX: I73.9 Peripheral vascular disease, unspecified (principal) | CPT/HCPCS: 99202 ==

== ENCOUNTER 2023-04-23 06:03 | Day surgery (SDC) | payer MEDICARE, SELFPAY ==
[2023-04-23] VITALS (11 sets, daily range): BP systolic 103–141; BP diastolic 54–76; PULSE 58–83; RESP 16; TEMP 36.6–36.7; O2SAT 88–97; BMI 24.4
[2023-04-23 06:54] LABS: MANUAL DIFF FLAG NO
[2023-04-23 07:01] LABS: Basophils Absolute Auto 0.1 X10*3/uL (0.0-0.2); Basophils Percent Auto 1.4 % (0-2); Eosinophils Absolute Auto 0.4 X10*3/uL (0.0-0.4); Hematocrit 42.2 % (42.0-52.0); Hemoglobin 14.7 g/dl (14.0-18.0); Imm Gran Abs Auto 0.02 X10*3/uL (0.00-0.03); Imm Gran Pct Auto 0.3 % (0.0-0.4); Lymphocytes Absolute Auto 3.1 X10*3/uL (1.2-4.9); Lymphocytes Percent Auto 41.6 % (20-40); Mean Corpuscular HGB Conc 34.8 g/dl (31.0-36.0); Mean Corpuscular Hemoglobin 32.1 pg (27.0-33.0); Mean Corpuscular Volume 92.1 fL (80.0-98.0); Mean Platelet Volume 9.5 fL (9.4-12.4); Monocytes Absolute Auto 1.1 X10*3/uL (0.1-1.2); Monocytes Percent Auto 14.6 % (2-11); Neutrophils Absolute Auto 2.7 x10*3/uL (2.0-8.3); Neutrophils Percent Auto 36.1 % (45-73); Platelet Count 186 X10*3/uL (160-400); Red Blood Count 4.58 X10*6/uL (4.60-5.80); Red Cell Distribution Width 15.4 % (11.0-16.0); White Blood Count 7.3 X10*3/uL (4.8-10.8)
[2023-04-23 07:10] LABS: Blood Urea Nitrogen 14 mg/dL (9-16); Estimated Glomerular Filt Rate > 60
[2023-04-23] MEDS: 0.9 % Sodium Chloride 1,000 ML 100 ML IVCONT (07:16)
[2023-04-23] MEDS: Albuterol Sulfate (0.083%) 2.5 MG/3 ML VIAL.NEB INHALE (07:30)
--- NOTE | 2023-04-23 08:57 | P.OP_ITS ---
Operative Note Operative Note Date of Service: 04/23/23 Narrative: Angiogram report from [facility] Preoperative diagnosis: Atherosclerosis of right lower extremity with activity limiting claudication Postoperative diagnosis: Same Procedure: 1. Ultrasound-guided left common femoral access 2. Aortogram with right lower extremity runoff Surgeon:Tj Edmondson M.D., FACS, RPVI Steam Hammer Operator:None Anesthesia: Local with moderate conscious sedation. Total intraservice mod erate sedation time was 29 minutes. I monitored the patient's level of consciousness and physiologic status continuously throughout the procedure. Specimens:none Drains:none Estimated blood loss: Less than 10 ml Implant: None Indications: 59-year-old gentleman with a history of smoking presented with severe activity limiting claudication. He can barely walk 100 ft. There is concern of inflow disease. He now presents for endovascular intervention The patient has signed the informed consent after reviewing risks, complications, benefits, and alternatives previously discussed with the patient. The patient was given the opportunity to ask any additional questions or voice any concerns. All questions were answered to the patient's satisfaction. Procedure in detail: Patient was brought to the angiography suite prior to which a time-out was called for patient identification and site verification. Bilateral groins were prepped and draped in the standard surgical fashion. Und er ultrasound guidance right common femoral was punctured with micro puncture needle and wire. Subsequently a precision 4 Mohawk sheath was then placed. Bentson wire was advanced to the level of the aorta. 4 Mohawk Flush catheter was brought up and parked at the level of the renal arteries. Aortogram was then undertaken. Catheter was brought down to the level of the iliac bifurcation. Iliacs were subsequently imaged. Catheter was then brought in up and over to the aortic bifurcation. We could not advance past this. Runoff study was then undertaken. Interpretation of films: 1. Ultrasound demonstrates appropriate femoral puncture. Image of which was saved. 2. Aortogram demonstrates appropriate caliber aorta. Minimal disease. Appropriate take-off of the renals. 3. Iliac images demonstrate good flow down the left iliac. Right side common iliac occlusion. Reconstitution at the right external iliac. Hypogastric diminutive but present. 4. Right Leg Common femoral artery: No significant disease Profundus Femoris: No significant disease Superficial femoral artery: No significant disease good flow to the knee Popliteal artery (p1,p2,p3): No significant disease Anterior tibial artery: Difficult to visualize but flow all the way down to the level of the foot Peroneal artery: Diminutive but present all the way to the ankle Posterior tibial artery: Good flow all the way down to the ankle Dorsalis pedis/plantar arch: Incomplete Conclusion: 1. Successful diagnostic angiogram. Will need femoral to femoral bypass 2. Anticoagulation status: No change This note is constructed using voice recognition software. While every effort has been made to ensure accuracy, machine helper errors may have been included. Thank you for allowing me to participate in the care of your patient. Yours sincerely, Tj Edmondson MD, FACS, R.P.V.I.
== END 2023-04-23 13:20 | disposition home or self-care (01) ==
PROVIDERS: PCP Internal Medicine; Visit Provider Surgery Vascular Surgery
DX: I70.211 Atherosclerosis of native arteries of extremities with intermittent claudication, right leg (principal); M79.651 Pain in right thigh; R20.0 Anesthesia of skin; R26.2 Difficulty in walking, not elsewhere classified; J44.9 Chronic obstructive pulmonary disease, unspecified; E78.5 Hyperlipidemia, unspecified; F17.210 Nicotine dependence, cigarettes, uncomplicated
CPT/HCPCS: 36245; 36415; 75630; 76937; 82565; 84520; 85025; 99152; 99153; A4364; C1769; C1887; J1644; J2250; J2310; J3010; Q9967

== ENCOUNTER → 2023-04-23 06:03 | Outpatient (BNV) | payer MEDICARE, SELFPAY | PROVIDERS: PCP Internal Medicine; Visit Provider Surgery Vascular Surgery | DX: I70.211 Atherosclerosis of native arteries of extremities with intermittent claudication, right leg (principal) | CPT/HCPCS: 36200; 75630; 76937; 99152 ==

== ENCOUNTER 2023-05-15 14:44 | Outpatient (AMB) | payer MEDICARE, SELFPAY ==
--- NOTE | 2023-05-15 14:47 | MHC.OFFVIS ---
Intake Vital Signs 05/15/23 14:54 Height 5 ft 4 in Weight 150 lb BMI 25.7 Intake Visit Reasons: 2 week follow up right leg angiogram Intake Note: Patient presents for 2 week follow up s/p 04/23/23 right leg angio. Patient states he still can only walk about 200 feet before he gets numb and stuck . No pain or swelling on right leg. Accompanied by: Spouse Allergies No Known Allergies Allergy (Verified 05/15/23 14:53) HPI 2 week follow up right leg angiogram HPI Details Very pleasant 67-year-old gentleman presents for follow-up regarding severe activity limiting claudication. He had undergone diagnostic angiogram on 04/23/2023. He had concerns of inflow disease. At that time it was discovered that he had good flow down the left iliac by right common iliac was totally occluded. He now presents for follow-up. Of note on discussion with him he walks about 100 ft at most. When we discussed his overall activity he can barely walk 100 ft and he does have occasional shortness of breath as well. Now presents to us for follow-up. [facility] Medical History COPD (chronic obstructive pulmonary disease) Personal history of nicotine dependence Abnormal CT scan, gallbladder (~02/2020) COPD (chronic obstructive pulmonary disease) Bacteremia (~02/2020) Bipolar 1 disorder Hyperlipemia Surgical History History of skin graft Social History Household Members: Spouse Housing: House Do you presently have visiting nurse or other home services: No Unable to assess alcohol history related to: Unable to respond Alcohol intake: never Comment: MED SURG OVERFLOW Patient Tobacco Use Status: Current everyday Tobacco user Tobacco use type: Cigarette Cigarette Packs Per Day: 2 Cigarettes Per Day: 40.0 Years Smoked: 50 (onset 15, 2+PPD x 50yrs, 100PYH) e-Cigarette/Vaping Use: Never Used Second Hand Smoke Exposure: No Substance Use Type: Marijuana service: No Current occupational status: retired Review of Systems Const All systems reviewed & are unremarkable except as noted in HPI and below Reports no additional complaints ENT Reports Normal hearing present Card Denies chest pain, Denies chest pain at rest, Denies chest pain with activity and Denies pedal edema Resp Denies cough GI Denies abdominal pain Musc Denies abnormal gait, Denies muscle cramps and Denies radiating pain into limb Skin/Breast Denies skin ulcer and Denies wounds Neuro Reports Normal hearing present and Denies abnormal gait Psych Reports no additional complaints Physical Exam Vital Signs: BMI result Body Mass Index 25.7 Const General: cooperative, healthy appearing and comfortable Orientation/consciousness: oriented to person, oriented to place and oriented to time HEENT Head: Yes normal to inspection Neck Neck: Yes normal visual inspection Carotids: no bruits Chest Chest palpation & inspection: normal inspection of the chest Resp Effort & Inspection: normal respiratory effort and able to speak in complete sentences Auscultation: clear to auscultation bilaterally, no crackles, no rales, no rhonchi and no wheezes Cardio Other: Bilateral DP signals Rate: regular rate Rhythm: regular rhythm Heart sounds: S1 normal heart sound present and S2 normal heart sound present Bruits: no carotid bruits Peripheral pulses: Peripheral pulses 2+ throughout GI Inspection: Yes normal to inspection Skin Other: Groin puncture well-healed Wounds: no wounds Hair: normal Neuro General: oriented to person, oriented to place and oriented to time Cranial nerves: Yes CN's II-XII intact bilaterally and Yes Normal hearing present Cognition (Neuro): normal cognition Motor exam (neuro): 5/5 motor strength present throughout Extrem Other: venous exam: No significant superficial varicosities or spider telangiectasias, minimal edema General: No clubbing, No cyanosis and No edema Psych Appearance: grossly normal Mental Status: mental status grossly normal Speech and movement: Normal speech and movement present Assessment & Plan Assessment & Plan (1) PAD (peripheral artery disease): Code(s): I73.9 - Peripheral vascular disease, unspecified Plan: In short patient has severe activity limiting claudication. He will require femoral to femoral bypass. Risks benefits complications of the procedure were discussed in detail with the patient. He understood and can centered. He would like to move forward. Of note he does have a prior history of COPD and will require pulmonary risk stratification. In addition will require cardiac risk stratification as well. Thank you for allowing us to assist in his care. If there are any questions or concerns please do not hesitate to contact us. (2) COPD (chronic obstructive pulmonary disease): Comment: (Moderate COPD on 08/2017 PFTs) Code(s): J44.9 - Chronic obstructive pulmonary disease, unspecified Plan: Pulmonary eval. He did have moderate COPD on PFTs in August of 2017. Coding Level of Care Code Est Pt Level 4 (65436) Diagnoses PAD (peripheral artery disease) I73.9 COPD (chronic obstructive pulmonary disease) J44.9
[2023-05-15 14:54] VITALS: BMI 25.7
== END 2023-05-15 15:19 | disposition home or self-care (01) ==
PROVIDERS: PCP Internal Medicine; Visit Provider Surgery Vascular Surgery
DX: I73.9 Peripheral vascular disease, unspecified (principal); J44.9 Chronic obstructive pulmonary disease, unspecified
CPT/HCPCS: 99214

== ENCOUNTER → 2023-05-15 14:44 | Outpatient (BNVA) | payer MEDICARE, SELFPAY | PROVIDERS: PCP Internal Medicine; Visit Provider Surgery Vascular Surgery | DX: I73.9 Peripheral vascular disease, unspecified (principal); J44.9 Chronic obstructive pulmonary disease, unspecified | CPT/HCPCS: 99212 ==

== ENCOUNTER 2023-05-23 12:42 | Outpatient (REF) | payer MEDICARE, SELFPAY ==
[2023-05-23 11:57] VITALS: PULSE 62; RESP 16; O2SAT 96
--- NOTE | 2023-05-23 14:03 | PFT_ITS ---
Flows: FEV1: 56 % of predicted at 1.50 L FVC: 73 % of predicted at 2.54 L FEV1/FVC: 59 % Bronchodilator response: Absent Volumes: No lung volume measurements available secondary to a technical issue. Diffusion capacity: Mildly decreased. Impression: Moderate obstructive ventilatory defect with no bronchodilator response. No lung volume measurements available secondary to a technical issue. Decreased diffusion capacity suggests emphysema. MTDD
== END 2023-05-23 12:43 | disposition home or self-care (01) ==
LOC: HO.RESP 12:42
PROVIDERS: PCP Internal Medicine; Visit Provider Surgery Vascular Surgery
DX: J44.9 Chronic obstructive pulmonary disease, unspecified (principal)
CPT/HCPCS: 94010; 94640; 94727; 94729

== ENCOUNTER → 2023-05-23 14:03 | Outpatient (BNV) | payer MEDICARE, SELFPAY | PROVIDERS: PCP Internal Medicine; Visit Provider Internal Medicine Pulmonary Disease | DX: J44.9 Chronic obstructive pulmonary disease, unspecified (principal) | CPT/HCPCS: 94060; 94729 ==

== ENCOUNTER 2023-05-27 10:47 | Outpatient (AMB) | payer MEDICARE, SELFPAY ==
--- NOTE | 2023-05-27 10:55 | A.OFFVIS_ITS ---
Intake Vital Signs 05/27/23 10:56 Height 5 ft 4 in Weight 144 lb BMI 24.7 BP 112/68 Blood Pressure Location Rt brachial Position Sitting Pulse 72 Pulse Source Pulse Oximeter Pulse Oximetry (%) 94 Oxygen Delivery Method Room Air Intake Visit Reasons: Femoral bypass 06/08 Dip Filler Required: No Through Freight Engineer: Through Freight Engineer offered & declined Accompanied by: Self / Same As Patient Allergies No Known Allergies Allergy (Verified 05/27/23 11:01) Medication List - Last Reconciled 05/27/23 by Reyna Rodriguez LPN albuterol sulfate 90 mcg/actuation (ProAir HFA) 2 puffs inhalation Q6H PRN albuterol sulfate 2.5 mg (3 mL) inhalation QID PRN MDD 12ml aspirin 81 mg PO DAILY citalopram 30 mg PO BEDTIME divalproex ER 1,000 mg PO DAILY ipratropium-albuterol 0.5 mg-3 mg(2.5 mg base)/3 mL 3 mL inhalation Q4-6H PRN olanzapine 10 mg PO BEDTIME simvastatin 80 mg PO DAILY HPI Femoral bypass 06/08 HPI Details Satnam is a pleasant 67-year-old male, current 2ppd smoker, with 100+ pack year history, with underlying COPD. He was referred for preoperative pulmonary evaluation by Dr. Edmondson for upcoming right femoral bypass scheduled on 06/08. At baseline he is suboptimally controlled on DuoNeb p.r.n., which he uses very infrequently. He reports dyspnea with exertion, wheezing, and nonproductive cough. He denies any chest tightness. He denies any prior history of asthma. He denies any family history of respiratory conditions. He denies any occupational exposures. He is aware of the negative implications of tobacco use and plans on starting Chantix with primary care. [facility] Medical History COPD (chronic obstructive pulmonary disease) Personal history of nicotine dependence Abnormal CT scan, gallbladder (~02/2020) COPD (chronic obstructive pulmonary disease) Bacteremia (~02/2020) Bipolar 1 disorder Hyperlipemia Surgical History History of skin graft Social History (Updated 05/27/23 @ 11:03 by Reyna Rodriguez LPN) Household Members: Spouse Housing: House Do you presently have visiting nurse or other home services: No Unable to assess alcohol history related to: Unable to respond Alcohol intake: never Comment: MED SURG OVERFLOW Patient Tobacco Use Status: Current everyday Tobacco user Tobacco use type: Cigarette Cigarette Packs Per Day: 2 Cigarettes Per Day: 40.0 Years Smoked: 50 (onset 15, 2+PPD x 50yrs, 100PYH) e-Cigarette/Vaping Use: Never Used Second Hand Smoke Exposure: No Substance Use Type: Marijuana service: No Current occupational status: retired Review of Systems Const Denies chills, Denies excessive sweating, Denies fever(s), Denies headache(s) and Denies night sweats Eyes Denies dry eyes, Denies irritation and Denies itchy eyes ENT Reports Normal hearing present, Denies headache(s), Denies nasal congestion, Denies nasal discharge, Denies post nasal drip and Denies sore throat Card Denies chest pain, Denies chest pain at rest, Denies chest pain with activity, Denies claudication, Denies leg edema, Denies orthopnea and Denies paroxysmal nocturnal dyspnea Resp Denies chest congestion, Denies excessive phlegm production, Denies pain on inspiration, Denies pain with cough and Denies stridor Musc Denies myalgias Neuro Reports Normal hearing present and Denies headache(s) Endo Denies excessive sweating Manuel/Lymph Denies lymphadenopathy Aller/Immun Denies itchy eyes and Denies seasonal rhinorrhea Physical Exam Vital Signs: Last Vital Signs Pulse 72 05/27/23 10:56 BP 112/68 05/27/23 10:56 Pulse Ox 94 05/27/23 10:56 Oxygen Delivery Method Room Air 05/27/23 10:56 BMI result Body Mass Index 24.7 Const General: cooperative, healthy appearing, comfortable, no acute distress, well developed and alert Orientation/consciousness: patient oriented x3 Limitations: no limitations HEENT Head: Yes normal to inspection, Yes normocephalic and Yes atraumatic Ears: hearing grossly normal bilaterally and external ears normal Eyes General: appearance normal, both eyes and all related structures Eyelids: Yes eyelids normal Sclerae: sclerae normal EOM: EOMs intact bilaterally Neck Neck: Yes normal visual inspection and Yes no lymphadenopathy Lymphatic: no lymphadenopathy noted Chest Chest palpation & inspection: normal inspection of the chest Resp Other: Moderate wheezing and rhonchi appreciated, improved with DuoNeb. Effort & Inspection: normal respiratory effort, able to speak in complete sentences, no audible wheezes, no stridor, not tachypneic, no tripod positioning and no use of accessory muscles Cardio Jugular venous distension: no JVD Rate: regular rate Rhythm: regular rhythm Skin Other: warm, dry General skin exam: no rashes or lesions noted Neuro General: patient oriented x3 Cranial nerves: Yes Normal hearing present Cognition (Neuro): normal cognition Gait exam (Neuro): Normal gait present Extrem General: Yes normal to inspection, Yes capillary refill normal, Yes no clubbing, cyanosis or edema and Yes no pedal edema Psych Appearance: grossly normal and well kempt Speech and movement: Normal speech and movement present and Clear speech present Affect: normal affect Attitude: cooperative Thought process: Normal thought process present Thought content: Normal thought content present Insight: Good insight present (Psych) Judgement: Good judgement present (Psych) Office Procedures Nebulizer Treatment Nebulizer Treatment [id number]/MDI RX initial, or Nebulizer Subsequent Treatment Office Meds ipratropium 0.5 mg-albuterol 3 mg (2.5 mg base)/3 mL nebulization soln Performing Provider: Leilani Crane NP Performing Location: [facility] Administered by: Reyna Rodriguez LPN on 05/27/23 11:51 Dose Route Admin Location Dispensed Lot Number Expiration Date [facility] Back Office Medical Assistant 3 mL inhalation 3 mL [id number] 01/21/25 55562-292-55 [email or web address] Results Reviewed Results Reviewed: [address] [address] [address] Scan Report Signed Patient: Juan Diego Todd MR#: [id number] : 1955 Acct:[id number] Age/Sex: 65 / M ADM Date: 01/05/21 Loc: .CT Attending Dr: Tonya Farmer PA-C Ordering Physician: Tonya Farmer PA-C Date of Service: 01/05/21 Procedure(s): CT lung screening Accession Number(s): [id number] cc: Tonya Farmer PA-C~ EXAMINATION: CT CHEST SCREENING CLINICAL INFORMATION: Smoking history. 96 pack year history. COMPARISON: None. TECHNIQUE: Multidetector volumetric CT imaging of the chest is performed without contrast using low dose technique. Additional 2D coronal and sagittal reformatted images and axial 3D maximum intensity projection (MIP) images are generated on the CT workstation. This CT examination was performed using dose optimization techniques as appropriate, variously including the following: *Automated exposure control *Adjustment of mA and/or kV according to patient size (this includes techniques or standardized protocols for targeted exams where dose is matched to indication/reason for exam; i.e. extremities or head) *Use of iterative reconstruction technique DLP: 208 mGy-cm FINDINGS: LUNGS: There is evidence of mild emphysema. There is a 3 mm right upper lobe nodule axial image 59 series 6. There is a 2 mm left upper lobe nodule axial image 64 series 6. There is a 2 mm right upper lobe nodule axial image 75 series 6. There is a 2 mm right upper lobe nodule axial image 86 series 6. There is a 2 mm peripheral or subpleural left lower lobe nodule adjacent to the fissure axial image 207 series 6. There is a 2 mm right lower lobe nodule axial image 232 series 6. There is question of a 2 mm right lower lobe nodule axial image 334 series 6.. MEDIASTINUM: The heart does not appear enlarged. There is coronary artery calcification. The thoracic aorta is upper normal in size. There are small mediastinal lymph nodes. No enlarged lymph nodes are seen. There is no pericardial effusion. The visualized thyroid gland is unremarkable. PLEURA: No pleural effusion or pleural thickening. AXILLA: No lymphadenopathy. UPPER ABDOMEN: There is a small calcification in the left kidney. This is peripherally located and probably represents a cortical calcification as opposed to a stone. OSSEOUS STRUCTURES: There are degenerative changes of the spine. CT/CT lung screening IMPRESSION: Mild emphysema. Small pulmonary nodules or micronodules. Coronary artery calcification. Upper normal-size thoracic aorta. ASSESSMENT: Lung-RADS category 2: Benign RECOMMENDATION: Annual low-dose chest CT follow-up recommended. Assessment & Plan Assessment & Plan (1) COPD (chronic obstructive pulmonary disease): Comment: (Moderate COPD on 08/2017 PFTs) Code(s): J44.9 - Chronic obstructive pulmonary disease, unspecified (2) Personal history of nicotine dependence: Comment: (Current Smoker, onset 15, 2ppd x 50yrs, 100PYH) Code(s): Z87.891 - Personal history of nicotine dependence Plan Juan Diego presents for preoperative pulmonary evaluation for upcoming femoral bypass surgery. At baseline, he reports suboptimal control on current regimen and on exam moderate wheezing and rhonchi appreciated. Will send in prednisone as well as start patient on Symbicort. Reviewed importance of oral hygiene as well as inhaler technique. Reviewed PFT which reveals moderate obstructive defect with minimal response to bronchodilators. Diffusion capacity is mildly decreased which is suggestive of emphysema. Last CT performed 2020, will obtain new imaging. Will follow-up next week to assess for improved respiratory status. All questions were answered and patient is in agreement of plan. Orders: Orders AMB Nebulizer Treatment Today J44.9 - Chronic obstructive pulmonary disease, unspecified Medications: New prednisone 40 mg (2 x 20 mg) PO DAILY 10 tabs 0RF mometasone-formoterol 100-5 mcg/actuation (Dulera) 2 puffs inhalation BID 13 grams 3RF Coding Level of Care Code New Pt Level 4 (04096) Diagnoses COPD (chronic obstructive pulmonary disease) J44.9 Personal history of nicotine dependence Z87.891 CPT Codes Nebulizer Treatment - Nebulizer Treatment, initial or subsequent: 75855- Nebulizer/MDI RX initial, or Nebulizer Subsequent Treatment ([id number])
[2023-05-27 10:56] VITALS: BP 112/68; PULSE 72; O2SAT 94; BMI 24.7
== END 2023-05-27 11:56 | disposition home or self-care (01) ==
PROVIDERS: PCP Internal Medicine; Visit Provider Nurse Practitioner Family
DX: J44.9 Chronic obstructive pulmonary disease, unspecified (principal); Z87.891 Personal history of nicotine dependence
CPT/HCPCS: 99204

== ENCOUNTER → 2023-05-27 10:47 | Outpatient (BNVA) | payer MEDICARE, SELFPAY | PROVIDERS: PCP Internal Medicine; Visit Provider Nurse Practitioner Family | DX: J44.9 Chronic obstructive pulmonary disease, unspecified (principal); Z87.891 Personal history of nicotine dependence | CPT/HCPCS: 94640; 99202 ==

== ENCOUNTER 2023-05-28 12:48 | Outpatient (AMB) | payer MEDICARE, SELFPAY ==
--- NOTE | 2023-05-28 12:57 | MHC.OFFVIS ---
Intake Vital Signs 05/28/23 12:59 Height 5 ft 4 in Weight 143 lb 4.807 oz BMI 24.6 BP 124/78 Blood Pressure Location Lt brachial Position Sitting Pulse 76 Intake Visit Reasons: Preop/ Dr Edmondson/fem to fem bypass Intake Note: Pre-op for fem bypass with ekg c/o sob Senior Software Development Engineer Required: No Allergies No Known Allergies Allergy (Verified 05/27/23 11:01) Medication List - Last Reconciled 05/28/23 by Rodri Delaney MD albuterol sulfate 90 mcg/actuation (ProAir HFA) 2 puffs inhalation Q6H PRN albuterol sulfate 2.5 mg (3 mL) inhalation QID PRN MDD 12ml aspirin 81 mg PO DAILY citalopram 30 mg PO BEDTIME divalproex ER 1,000 mg PO DAILY ipratropium-albuterol 0.5 mg-3 mg(2.5 mg base)/3 mL 3 mL inhalation Q4-6H PRN mometasone-formoterol 100-5 mcg/actuation (Dulera) 2 puffs inhalation BID olanzapine 10 mg PO BEDTIME prednisone 40 mg (2 x 20 mg) PO DAILY simvastatin 80 mg PO DAILY HPI HPI Comments History of Present Illness Details Thank you for referring bruise in cardiology consultation today for preoperative cardiovascular risk stratification prior to fem-fem bypass surgery for right iliac occlusion. This is scheduled in near future. Patient has been having symptoms for the last 6 months seen by you and subsequently underwent invasive angiogram of the aorta with runoff. 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 He had good flow into his remainder of the lower extremity and plan was made for surgery. The angiogram happened on 04/23/2023. Patient subsequently seen in your office in April and was decision made for fem-fem bypass due to limiting claudication. Patient says he gets symptoms when he walks 100 ft. He has to stop. With that amount of walking as no symptoms of chest pain but does get short of breath. He has prior history of COPD and admission to the hospital with COPD exacerbation. He continues to smoke 2 packs a day. Has longstanding history of hyperlipidemia been on simvastatin 80 mg daily. He has no prior history of myocardial infarction or congestive heart failure. He has prior history of bipolar disorder as well as movement disorders. [facility] Medical History COPD (chronic obstructive pulmonary disease) Personal history of nicotine dependence Abnormal CT scan, gallbladder (~02/2020) COPD (chronic obstructive pulmonary disease) Bacteremia (~02/2020) Bipolar 1 disorder Hyperlipemia Surgical History History of skin graft Social History Household Members: Spouse Housing: House Do you presently have visiting nurse or other home services: No Unable to assess alcohol history related to: Unable to respond Alcohol intake: never Comment: MED SURG OVERFLOW Patient Tobacco Use Status: Current everyday Tobacco user Tobacco use type: Cigarette Cigarette Packs Per Day: 2 Cigarettes Per Day: 40.0 Years Smoked: 50 (onset 15, 2+PPD x 50yrs, 100PYH) e-Cigarette/Vaping Use: Never Used Second Hand Smoke Exposure: No Substance Use Type: Marijuana service: No Current occupational status: retired Review of Systems Const Denies chills, Denies fatigue, Denies fever(s), Denies frequent falls, Denies weakness, Denies weight gain and Denies weight loss ENT Denies dizziness Card Denies chest pain, Denies leg edema, Denies lightheadedness, Denies palpitations, Denies dyspnea, Denies dyspnea on exertion, Denies orthopnea and Denies other (loss of consciousness) Resp Denies cough, Denies dyspnea and Denies dyspnea on exertion GI Denies hematochezia and Denies change in stool character Musc Denies abnormal gait, Denies muscle weakness, Denies numbness, Denies radiating pain into limb and Denies tingling Neuro Denies abnormal gait, Denies dizziness, Denies frequent falls, Denies numbness, Denies tingling and Denies weakness Endo Denies fatigue and Denies palpitations Physical Exam Vital Signs: Last Vital Signs Pulse 76 05/28/23 12:59 BP 124/78 05/28/23 12:59 BMI result Body Mass Index 24.6 Const General: cooperative, alert, awake and poor hygiene Nutritional Appearance: average body habitus Orientation/consciousness: patient oriented x3 Limitations: no limitations HEENT Head: Yes normocephalic and Yes atraumatic Neck Neck: Yes trachea midline, Yes supple and Yes no JVD Resp Effort & Inspection: normal respiratory effort Auscultation: wheezes scattered wheezes and diminished lung sounds Cardio Jugular venous distension: no JVD Palpation: normal PMI Rate: regular rate Rhythm: regular rhythm Heart sounds: S1 normal heart sound present, S2 normal heart sound present, no click, no gallops, no murmurs and no rubs GI Auscultation: normal bowel sounds Skin General skin exam: no rashes or lesions noted Neuro General: patient oriented x3 and no focal motor deficits Extrem General: Yes no clubbing, cyanosis or edema Office Procedures EKG Details: EKG shows normal sinus rhythm with inferior T-wave changes as well as inferolateral changes which could represent repolarization abnormality versus ischemia. [id number]-[id number], Complete Assessment & Plan Assessment & Plan (1) Preoperative cardiovascular examination: Code(s): Z01.810 - Encounter for preprocedural cardiovascular examination Plan: Preoperative cardiovascular risk stratification this elderly gentleman with severe peripheral vascular disease with life-limiting claudication, to undergo high risk surgery with underlying high risk for cardiovascular disease. He has limited exercise capacity and therefore can not clinically evaluate for presence of underlying significant cardiovascular disease. Would suggest an echocardiogram to evaluate LV systolic and diastolic function and regional wall motion abnormality as well as valvular abnormalities. Will also suggest a vasodilating myocardial perfusion imaging to evaluate for obstructive coronary artery disease. If these tests are within acceptable limits, he would still be intermediate risk for perioperative cardiovascular morbidity mortality. He also has significant underlying wheezing and pulmonary complication also highly likely. We discussed about management of atherosclerosis in details with him. Complete smoking cessation was discussed, he said he will continue to try. He is on aspirin therapy which should continue for life. Will switch his statin therapy to high-intensity statin therapy with atorvastatin 80 mg daily. Target goal LDL closer to 60 mg/dL. Further risk stratification based on the findings of the test results. Will follow up as need be. Medications: New atorvastatin 80 mg PO DAILY 30 tabs 5RF Coding Level of Care Code New Pt Level 4 (63786) Diagnoses Preoperative cardiovascular examination Z01.810 CPT Codes EKG - CPT: 34157-Kjwgacgnpfegrumvo, Complete ([id number])
[2023-05-28 12:59] VITALS: BP 124/78; PULSE 76; BMI 24.6
== END 2023-05-28 13:19 | disposition home or self-care (01) ==
PROVIDERS: PCP Internal Medicine; Visit Provider Internal Medicine Cardiovascular Disease
DX: I73.9 Peripheral vascular disease, unspecified (principal); Z01.810 Encounter for preprocedural cardiovascular examination
CPT/HCPCS: 93010; 99203

== ENCOUNTER → 2023-05-28 12:48 | Outpatient (BNVA) | payer MEDICARE, SELFPAY | PROVIDERS: PCP Internal Medicine; Visit Provider Internal Medicine Cardiovascular Disease | DX: Z01.810 Encounter for preprocedural cardiovascular examination (principal) | CPT/HCPCS: 93005; 99202 ==

== ENCOUNTER → 2023-06-03 09:43 | Outpatient (REF) | payer MEDICARE, SELFPAY ==
--- NOTE | ~2023-06-03 | NM_ITS ---
Dobutamine Myocardial perfusion study Indication: Preoperative cardiovascular risk stratification Technique: The patient was brought in for an dobutamine perfusion study on 06/03/2023. Patient performed dobutamine infusion as per protocol and was injected 25 mCi of sestamibi was given intravenously one target HR was achieved. Images were obtained using the SPECT gamma camera interlaced with the gating device. Images were obtained in supine position. Resting perfusion study was performed on 06/05/2023. Patient was administered 25 mCi of sestamibi intravenously at rest. Images were then obtained in supine position. Images obtained with and without CT attenuation. Total DLP 74 mGy-cm. Images were processed with the software and compared side to side in short axis, horizontal long axis and vertical long axis views. Findings: The stress perfusion study showed non attenuated images show minimally reduced uptake in the inferoseptum and inferior wall of the LV myocardium. Remainder of the LV myocardium is normally perfused. Attenuation corrected images show normalized uptake in the inferior inferoseptal wall of the LV myocardium.. The gated study shows normal LV systolic function with calculated LVEF of 58%. LV cavity is normal in size. The gated study shows normal systolic wall thickening and contraction of all segments. There is no transient ischemic dilation. Resting study shows nontender images show normal uptake in the inferoseptum and inferior wall of the LV myocardium.. Gating at rest reveals normal systolic wall motion with ejection fraction at greater than 55%. The findings are consistent with mild intensity inferior and inferoseptal wall ischemia. NM/NM cardiolite stress test Impression: 1. Mild intensity inferior and inferoseptal ischemia in RCA territory 2. Gated LVEF is 58% 3. Transient ischemic dilatation not present Stress EKG is positive for ischemia
--- NOTE | 2023-06-03 09:45 | CA_ITS ---
Acquisition Time: 2023-06-03 09:59:59 Total Exercise Time: 00:12:00 Test Indications: Pre-Op Evaluation Medications: SEE H Protocol: DOBUTAMINE Max HR: 169 BPM 111% of Pred: 152 BPM Max BP: 138/070 mmHG Max Work Load: 1.0 METS Pharmacooogical stress test with Dobutamine infusion 30 mcg/kg achieving 90% MPHR, without anginal symptoms, with isolated PAC seen through artifact, with normotensive response during infusion, with hypotensive in recovery (82-85 systolic) and returned to baseline,with downsloping V5-V6. Patient tolerated test with feeling fatigue from moving. Nuclear images pending. Test reviewed with Dr. Delaney Referred By: Rodri Delaney Overread By: Shavon Castillo
== END ==
LOC: HO.CARD 09:43
PROVIDERS: PCP Internal Medicine; Visit Provider Internal Medicine Cardiovascular Disease
DX: Z01.810 Encounter for preprocedural cardiovascular examination (principal); I73.9 Peripheral vascular disease, unspecified; J44.9 Chronic obstructive pulmonary disease, unspecified
CPT/HCPCS: 78452; 93017; A9500; J0280; J1250; J2785

== ENCOUNTER → 2023-06-03 09:45 | Outpatient (BNV) | payer MEDICARE, SELFPAY | PROVIDERS: PCP Internal Medicine; Visit Provider Nurse Practitioner | DX: I25.10 Atherosclerotic heart disease of native coronary artery without angina pectoris (principal) | CPT/HCPCS: 78452; 93016; 93018 ==

== ENCOUNTER 2023-06-04 09:51 | Outpatient (AMB) | payer MEDICARE, SELFPAY ==
[2023-06-04 09:55] VITALS: BP 122/58; PULSE 79; O2SAT 96; BMI 24.9
--- NOTE | 2023-06-04 09:55 | MHC.OFFVIS ---
Intake Vital Signs 06/04/23 09:55 Height 5 ft 4 in Weight 145 lb BMI 24.9 BP 122/58 L Blood Pressure Location Rt brachial Position Sitting Pulse 79 Pulse Source Pulse Oximeter Pulse Oximetry (%) 96 Oxygen Delivery Method Room Air Intake Visit Reasons: femoral bypass f/u [employer] Helper Required: No Digital Product Manager: Digital Product Manager offered & declined Accompanied by: Self / Same As Patient Allergies No Known Allergies Allergy (Verified 06/04/23 09:59) Medication List - Last Reconciled 06/04/23 by Reyna Rodriguez LPN albuterol sulfate 90 mcg/actuation (ProAir HFA) 2 puffs inhalation Q6H PRN albuterol sulfate 2.5 mg (3 mL) inhalation QID PRN MDD 12ml aspirin 81 mg PO BEDTIME atorvastatin 80 mg PO BEDTIME citalopram 30 mg PO BEDTIME divalproex ER 1,000 mg PO BEDTIME ipratropium-albuterol 0.5 mg-3 mg(2.5 mg base)/3 mL 3 mL inhalation Q4-6H PRN mometasone-formoterol 100-5 mcg/actuation (Dulera) 2 puffs inhalation BID olanzapine 10 mg PO BEDTIME HPI femoral bypass f/u HPI Cait Adamson is a pleasant 67-year-old male, current 2ppd smoker, with 100+ pack year history, with underlying COPD. He was referred for preoperative pulmonary evaluation by Dr. Edmondson for upcoming right femoral bypass scheduled on 06/08. At baseline he was suboptimally controlled on DuoNeb p.r.n. and was switched to ICS/LABA. He was also prescribed a short course of prednisone due to moderate amount of wheezing. He presents today reporting notable improvements in dyspnea and wheezing. However he does continue to use albuterol 2-3 times per day. Since last visit, patient now with productive cough with yellow sputum as well as significant sputum production. [facility] Medical History (Updated 06/04/23 @ 12:50 by Leilani Crane NP) RSV (respiratory syncytial virus infection) Personal history of nicotine dependence Abnormal CT scan, gallbladder (~02/2020) COPD (chronic obstructive pulmonary disease) Bacteremia (~02/2020) Bipolar 1 disorder Hyperlipemia Surgical History (Updated 06/02/23 @ 11:54 by Kary Parr RN) S/P aortogram History of skin graft Social History (Updated 06/04/23 @ 10:01 by Reyna Rodriguez LPN) Household Members: Spouse Housing: House Are you a primary respiratory care practitioner to a significant other at home: No Do you presently have visiting nurse or other home services: No Unable to assess alcohol history related to: Unable to respond Alcohol intake: never Comment: MED SURG OVERFLOW Patient Tobacco Use Status: Current everyday Tobacco user Tobacco use type: Cigarette Cigarette Packs Per Day: 2 Cigarettes Per Day: 40.0 Years Smoked: 52 Smoked in Last 30 Days: Yes e-Cigarette/Vaping Use: Never Used Second Hand Smoke Exposure: No Substance Use Type: Marijuana Advance Directives Date on File: 02/26/23 service: No Current occupational status: retired Review of Systems Const Denies chills, Denies excessive sweating, Denies fever(s), Denies headache(s) and Denies night sweats Eyes Denies dry eyes, Denies irritation and Denies itchy eyes ENT Reports Normal hearing present, Denies headache(s), Denies nasal congestion, Denies nasal discharge, Denies post nasal drip and Denies sore throat Card Denies chest pain, Denies chest pain at rest, Denies chest pain with activity, Denies claudication, Denies leg edema, Denies orthopnea and Denies paroxysmal nocturnal dyspnea Resp Denies chest congestion, Denies pain on inspiration, Denies pain with cough, Denies stridor and Denies wheezing Musc Denies myalgias Neuro Reports Normal hearing present and Denies headache(s) Endo Denies excessive sweating Manuel/Lymph Denies lymphadenopathy Aller/Immun Denies itchy eyes, Denies seasonal rhinorrhea and Denies wheezing Physical Exam Vital Signs: Last Vital Signs Pulse 79 06/04/23 09:55 BP 122/58 L 06/04/23 09:55 Pulse Ox 96 06/04/23 09:55 Oxygen Delivery Method Room Air 06/04/23 09:55 BMI result Body Mass Index 24.9 Const General: cooperative, healthy appearing, comfortable, no acute distress, well developed and alert Nutritional Appearance: obese Orientation/consciousness: patient oriented x3 Limitations: no limitations HEENT Head: Yes normal to inspection, Yes normocephalic and Yes atraumatic Ears: hearing grossly normal bilaterally and external ears normal Eyes General: appearance normal, both eyes and all related structures Eyelids: Yes eyelids normal Sclerae: sclerae normal EOM: EOMs intact bilaterally Neck Neck: Yes normal visual inspection and Yes no lymphadenopathy Lymphatic: no lymphadenopathy noted Chest Chest palpation & inspection: normal inspection of the chest Resp Effort & Inspection: normal respiratory effort, able to speak in complete sentences, no audible wheezes, no cough, no stridor, not tachypneic, no tripod positioning and no use of accessory muscles Auscultation: diminished lung sounds Cardio Jugular venous distension: no JVD Rate: regular rate Rhythm: regular rhythm Skin Other: warm, dry General skin exam: no rashes or lesions noted Neuro General: patient oriented x3 Cranial nerves: Yes Normal hearing present Cognition (Neuro): normal cognition Gait exam (Neuro): Normal gait present Extrem General: Yes normal to inspection, Yes capillary refill normal, Yes no clubbing, cyanosis or edema and Yes no pedal edema Psych Appearance: grossly normal and well kempt Speech and movement: Normal speech and movement present and Clear speech present Affect: normal affect Attitude: cooperative Thought process: Normal thought process present Thought content: Normal thought content present Insight: Good insight present (Psych) Judgement: Good judgement present (Psych) Assessment & Plan Assessment & Plan (1) COPD (chronic obstructive pulmonary disease): Code(s): J44.9 - Chronic obstructive pulmonary disease, unspecified (2) Personal history of nicotine dependence: Comment: (Current Smoker, onset 15, 2ppd x 50yrs, 100PYH) Code(s): Z87.891 - Personal history of nicotine dependence Plan Juan Diego presents for close follow up for preoperative pulmonary evaluation for upcoming femoral bypass surgery. At the last vist he was prescribed prednisone for acute exacerbation with great response. No wheezing or rhonchi appreciated today. Unfortunately, he has developed increased sputum production and productive cough with yellow sputum. Denies fever, chills or sick contacts. Will send zpak. Patient reports moderate control with dulera however continues to use albuterol 2-3 times per day. Will trial trelegy. 6MWT performed and patient does not require supplemental oxygen. At this time, patient would be considered intermediate risk for pulmonary complications, according to ARISCAT risk index. Consider bronchodilators in the preoperative period. All questions were answered and patient is in agreement of plan. Will follow up in three months or sooner if needed. Medications: New kgpuiovbfnv-sfofrxqyx-ddafhkzp 200-62.5-25 mcg (Trelegy Ellipta) 1 inh inhalation DAILY 60 ea 6RF azithromycin For 250 mg dose pack: take 500 mg today (day 1), then 250 mg for 4 days (days 2-5) PO 6 tabs 0RF Coding Level of Care Code Est Pt Level 4 (50269) Diagnoses COPD (chronic obstructive pulmonary disease) J44.9 Personal history of nicotine dependence Z87.894
== END 2023-06-04 10:53 | disposition home or self-care (01) ==
PROVIDERS: PCP Internal Medicine; Visit Provider Nurse Practitioner Family
DX: J44.9 Chronic obstructive pulmonary disease, unspecified (principal); Z87.891 Personal history of nicotine dependence
CPT/HCPCS: 99214

== ENCOUNTER → 2023-06-04 09:51 | Outpatient (BNVA) | payer MEDICARE, SELFPAY | PROVIDERS: PCP Internal Medicine; Visit Provider Nurse Practitioner Family | DX: J44.9 Chronic obstructive pulmonary disease, unspecified (principal); F17.210 Nicotine dependence, cigarettes, uncomplicated | CPT/HCPCS: 99212 ==

== ENCOUNTER → 2023-06-05 08:32 | Outpatient (REF) | payer MEDICARE, SELFPAY ==
--- NOTE | 2023-06-05 08:34 | CA_ITS ---
Transthoracic Echocardiogram Patient (Last, First, Middle): Juan Diego Todd L Gender: Male Date of : 1955 Age: 67 Procedure Date: 06/05/2023 Procedure Type: Transthoracic Echocardiogram Location: OP Height: 162.56 cm Weight: 68.04 kg BSA: 1.73 m2 Heart Rate: 67 bpm BP: 128 / 68 mmHg Sole Leveler: TO Referring MD: Rodri Delaney MD Venereal Disease Investigator: Rodri Delaney MD Symptoms: Z01.810 - Encounter for preprocedural cardiovascular examination Study Quality: Adequate w contrast ECG Rhythm: Sinus Conclusions: - 1. Normal LV systolic function with LVEF of 60-65% with impaired relaxation filling pattern 2. Normal cardiac valvular Doppler 3. No gross pericardial effusion Findings Procedure Information Contrast agent, definity, is being given per protocol without apparent complications. Left Ventricle Normal left ventricular size, thickness, and systolic function. The visually estimated ejection fraction is between 60-65%. Spectral Doppler is indicative of an impaired relaxation filling pattern. E/E prime ratio is between 8 and 15 consistent with indeterminate filling pressures. Right Ventricle Normal right ventricular cavity size and systolic function. Atria Both atria are normal in size. Interatrial shunt cannot be excluded. Aortic Valve Normal aortic valve structure and function. There is mild calcification of the aortic valve. There is no aortic valve stenosis. There is no aortic valve regurgitation. Mitral Valve Normal mitral valve structure and function. There is trace mitral valve regurgitation. There is no mitral valve stenosis. Pulmonic Valve The pulmonic valve is likely normal. There is trace pulmonic valve regurgitation. Tricuspid Valve Likely normal tricuspid valve structure and function. There is trace tricuspid valve regurgitation. The right ventricular systolic pressure is normal. The right ventricular systolic pressure is 10 mmHg. Normal right atrial pressure. There is no evidence of pulmonary hypertension. Great Vessels All visible segments of the aorta are normal in size. The pulmonary artery was not well visualized. There is no dilatation of the ascending aorta measuring 3.40 cm. Small plaque is seen in the sino tubular ridge. Venous The inferior vena cava is normal in size and collapses greater than 50% with inspiration. Pericardium/Pleural There is no evidence of pericardial effusion. Prior Study Comparison No prior study available for comparison. Measurements 2D Linear Measurements IVSd: 0.85 0.6-0.9/0.6-1.0 cm LVIDd: 3.85 3.9-5.3/4.2-5.9 cm LVIDd Index: 2.23 2.4-3.2/2.2-3.1 cm/m2 LVIDs: 2.76 2.0-3.6 cm LVPWd: 0.80 0.7-1.1 cm LA Diam: 2.60 2.7-3.8/3.0-4.0 cm LAIDs Index: 1.50 1.5-2.3 cm/m2 LV Mass: 113.49 67-162/88-224 g LV Mass Index: 65.60 43-95/49-115 g/m2 LVOT Diam: 2.10 3.0+(-)1.3 cm 2D Systolic Function EF 4C: 68.60 >55% EF 2C: 57.90 >55% EF BiP: 64.00 >55% Mitral Valve MV Pk E: 0.64 MV PK A: 0.61 MV Decel Time: 237.00 E/A: 1.00 E'Lateral: 7.83 E'Medial: 7.62 E/E' Med: 8.40 E/E' Lat: 8.20 PHT: 69.00 MVA PHT: 3.19 Decel Stonewall: 2.71 Aortic Valve AoV Pk Artie: 1.38 AoV Mn Artie: 0.99 AoV VTI: 0.27 AoV Pk Grad: 8.00 Aov Mn Grad: 4.00 RICKY Cont.VTI: 2.60 LVOT LVOT Pk Artie: 0.98 LVOT Mn Artie: 0.68 LVOT VTI: 0.20 LVOT Pk Grad: 4.00 LVOT Mn Grad: 2.00 LVOT Diam: 2.10 LVOT Area: 3.46 Diastolic Function MV Pk E: 0.64 MV Pk A: 0.61 E/A: 1.00 E'Medial: 7.62 E/E' Med: 8.40 E' Laterial: 7.83 E/E' Lat: 8.20 Right Ventricle TAPSE (mm): 21.30 TVS' Artie: 12.00 Tricuspid Valve TR Pk Artie: 1.32 TR Pk Grad: 7.00 RA Press: 3.00 RVSP: 10.00 Great Vessels Aorta Sinus of Valsalva: 3.57 2.0-3.5 cm Ao Asc: 3.40 2.1-3.4 cm Updated in Other Vendor System with Status of Final Rodri Delaney MD electronically signed on 06/06/2023 4:05:39 PM with status of Final
== END ==
LOC: HO.CARD 08:32
PROVIDERS: PCP Internal Medicine; Visit Provider Internal Medicine Cardiovascular Disease
DX: Z01.818 Encounter for other preprocedural examination (principal); I73.9 Peripheral vascular disease, unspecified; J44.9 Chronic obstructive pulmonary disease, unspecified
CPT/HCPCS: 93306; Q9957

== ENCOUNTER → 2023-06-05 08:34 | Outpatient (BNV) | payer MEDICARE, SELFPAY | PROVIDERS: PCP Internal Medicine; Visit Provider Internal Medicine Cardiovascular Disease | DX: I35.8 Other nonrheumatic aortic valve disorders (principal) | CPT/HCPCS: 93306 ==

== ENCOUNTER 2023-06-09 06:26 | Inpatient (IN) | payer MEDICARE, SELFPAY ==
[2023-06-02 12:03] VITALS: BP 102/59; PULSE 78; RESP 22; O2SAT 96; BMI 25.1
--- NOTE | 2023-06-02 12:19 | HO.ANESPROP2 ---
Documented by User: Viola More NP 06/02/23 12:30 HPI - Anesthesia Eval Consult details Narrative: 67yo M for Femoral Femoral Bypass Graft Pending cardiac and pulmo clearance No recent illness No CP. TEJEDA at baseline. COPD. Follows [facility] [place]. Albuterol neb 2 x's daily. Albuterol inhaler 2 x's daily. New inhaler to start today. [facility] Active Problems Active Problems: All Active Problems (Updated 06/02/23 @ 12:02 by Kary Parr RN) Preoperative cardiovascular examination (Acute) PAD (peripheral artery disease) (Acute) COPD (chronic obstructive pulmonary disease) (Acute) Personal history of nicotine dependence (Acute) Past Medical History Medical History RSV (respiratory syncytial virus infection) Personal history of nicotine dependence Abnormal CT scan, gallbladder (~02/2020) COPD (chronic obstructive pulmonary disease) Bacteremia (~02/2020) Bipolar 1 disorder Hyperlipemia Family History Family history of problems with anesthesia: No Surgical History Surgical History S/P aortogram History of skin graft History of Problems with Anesthesia: No Social History Social History Household Members: Spouse Housing: House Are you a primary continuum of care manager to a significant other at home: No Do you presently have visiting nurse or other home services: No Unable to assess alcohol history related to: Unable to respond Alcohol intake: never Comment: MED SURG OVERFLOW Patient Tobacco Use Status: Current everyday Tobacco user Tobacco use type: Cigarette Cigarette Packs Per Day: 2 Cigarettes Per Day: 40.0 Years Smoked: 52 e-Cigarette/Vaping Use: Never Used Patient Interested in Nicotine Replacement: Yes Second Hand Smoke Exposure: No Use of substances other than those prescribed or required for medical reasons: Yes Substance Use Type: Marijuana Substance Use Type Other:: smokes marijuana Substance Use Frequency: Daily Have you been hit, kicked, punched, or otherwise hurt by someone within the past year? If so, by whom?: No Are you DNR?: No Advance Directives: Yes Advance Directives Information Provided: Yes Advance Directives on File: Yes Advance Directives Date on File: 02/26/23 Recently lost weight without trying: No Eating poorly because of decreased appetite: No Nutrition Risks: No Nutritional Risk Poor oral hygiene: No (missing teth) service: No Current occupational status: retired Meds Allergies Allergy/AdvReac Type Severity Reaction Status Date / Time No Known Allergies Allergy Verified 06/04/23 09:59 Home Medications Medication Instructions Recorded Confirmed Last Taken Type citalopram 20 mg tablet 30 mg PO BEDTIME 03/02/20 06/04/23 04/22/23 History divalproex 500 mg tablet,extended 1,000 mg PO BEDTIME 03/02/20 06/04/23 04/22/23 History release 24 hr olanzapine 10 mg tablet 10 mg PO BEDTIME 03/02/20 06/04/23 04/22/23 History aspirin 81 mg tablet,delayed 81 mg PO BEDTIME 05/27/23 06/04/23 Unknown History release atorvastatin 80 mg tablet 80 mg PO BEDTIME 06/02/23 06/04/23 Unknown History Exam Height,Weight and Vital Signs: Height 5 ft 4 in Weight 66.224 kg Last Vital Signs Pulse 78 06/02/23 12:03 Resp 22 H 06/02/23 12:03 BP 102/59 L 06/02/23 12:03 Pulse Ox 96 06/02/23 12:03 O2 Del Method Room Air 06/02/23 12:03 Airway Mallampati Class: III TM Dist: >3cm Neck ROM: Full Loose/Missing/Broken Teeth: Yes (Missing molars) Heart: RRR Lungs: Crackles RUL, low air movement Assessment and Plan Assessment Anesthesia Assessment: Anesthesia Plan Discussed, Smoking Cess. Discussed and PAT Visit Final Anesthetic Review Family History of Problems with Anesthesia: No History of Problems with Anesthesia: No Documented by User: Gisella Dwyer MD 06/09/23 08:54 [facility] Past Medical History Medical History RSV (respiratory syncytial virus infection) Personal history of nicotine dependence Abnormal CT scan, gallbladder (~02/2020) COPD (chronic obstructive pulmonary disease) Bacteremia (~02/2020) Bipolar 1 disorder Hyperlipemia Surgical History Surgical History S/P aortogram History of skin graft Social History Social History Household Members: Spouse Housing: House Are you a primary continuum of care manager to a significant other at home: No Do you presently have visiting nurse or other home services: No Unable to assess alcohol history related to: Unable to respond Alcohol intake: never Comment: MED SURG OVERFLOW Patient Tobacco Use Status: Current everyday Tobacco user Tobacco use type: Cigarette Cigarette Packs Per Day: 2 Cigarettes Per Day: 40.0 Years Smoked: 52 e-Cigarette/Vaping Use: Never Used Patient Interested in Nicotine Replacement: Yes Second Hand Smoke Exposure: No Use of substances other than those prescribed or required for medical reasons: Yes Substance Use Type: Marijuana Substance Use Type Other:: smokes marijuana Substance Use Frequency: Daily Have you been hit, kicked, punched, or otherwise hurt by someone within the past year? If so, by whom?: No Are you DNR?: No Advance Directives: Yes Advance Directives Information Provided: Yes Advance Directives on File: Yes Advance Directives Date on File: 02/26/23 Recently lost weight without trying: No Eating poorly because of decreased appetite: No Nutrition Risks: No Nutritional Risk Poor oral hygiene: No (missing teth) service: No Current occupational status: retired Meds Allergies Allergy/AdvReac Type Severity Reaction Status Date / Time No Known Allergies Allergy Verified 06/04/23 09:59 Home Medications Medication Instructions Recorded Confirmed Last Taken Type citalopram 20 mg tablet 30 mg PO BEDTIME 03/02/20 06/04/23 04/22/23 History divalproex 500 mg tablet,extended 1,000 mg PO BEDTIME 03/02/20 06/04/23 04/22/23 History release 24 hr olanzapine 10 mg tablet 10 mg PO BEDTIME 03/02/20 06/04/23 04/22/23 History aspirin 81 mg tablet,delayed 81 mg PO BEDTIME 05/27/23 06/04/23 Unknown History release atorvastatin 80 mg tablet 80 mg PO BEDTIME 06/02/23 06/04/23 Unknown History Assessment and Plan Final Anesthetic Review NPO: Yes ASA Class: IV Final Preanesthetic Review: Meds/Allgs Chart Reviewed, Consent Obtained/Reviewed and Anes Risks/Benef Reviewed Patient Risk: High Procedure Risk: Intermediate Anesthetic Plan Anesthetic Plan: Spinal Disposition: Inp. Admit - ICU
[2023-06-02 13:07] LABS: Venous Blood Gas Refer to POC result
[2023-06-02 13:18] LABS: VBG Base Excess 3.9 mmol/L; VBG HCO3 31 mmol/L (22-26); VBG pCO2 55 mmHg; VBG pH 7.35 (7.32-7.43); VBG pO2 24 mmHg
[2023-06-02 13:34] LABS: Hematocrit 48.6 % (42.0-52.0); Hemoglobin 16.5 g/dl (14.0-18.0); Mean Corpuscular Hemoglobin 32.2 pg (27.0-33.0); Mean Corpuscular Volume 94.9 fL (80.0-98.0); Mean Platelet Volume 9.8 fL (9.4-12.4); Platelet Count 236 X10*3/uL (160-400); Red Blood Count 5.12 X10*6/uL (4.60-5.80); Red Cell Distribution Width 15.2 % (11.0-16.0); White Blood Count 16.2 X10*3/uL (4.8-10.8)
[2023-06-02 13:45] LABS: INTERNATIONAL NORM RATIO 0.9 (0.9-1.1); Prothrombin Time 11.5 SEC (11.1-13.3)
[2023-06-02 13:48] LABS: Partial Thromboplastin Time 28.6 SEC (26.0-36.8)
[2023-06-02 14:21] LABS: Anion Gap 13 (12-20); Blood Urea Nitrogen 18 mg/dL (9-16); Calcium 8.9 mg/dL (8.4-10.2); Carbon Dioxide 29 mmol/L (22-29); Chloride 97 mmol/L (96-108); Creatinine Clr Calc Pharmacy 62.3; Estimated Glomerular Filt Rate > 60; Glucose Random 145 mg/dL (60-115); Potassium 3.4 mmol/L (3.3-5.1); Sodium 136 mmol/L (135-145)
[2023-06-09] VITALS (20 sets, daily range): BP systolic 98–153; BP diastolic 51–68; PULSE 60–78; RESP 10–30; TEMP 35.9–36.8; O2SAT 93–100
[2023-06-09 06:49] LABS: Hematocrit 46.3 % (42.0-52.0); Hemoglobin 15.8 g/dl (14.0-18.0); Mean Corpuscular HGB Conc 34.1 g/dl (31.0-36.0); Mean Corpuscular Hemoglobin 32.2 pg (27.0-33.0); Mean Corpuscular Volume 94.5 fL (80.0-98.0); Mean Platelet Volume 9.4 fL (9.4-12.4); Platelet Count 211 X10*3/uL (160-400); Red Cell Distribution Width 14.5 % (11.0-16.0); White Blood Count 14.5 X10*3/uL (4.8-10.8)
[2023-06-09 06:54] LABS: Prothrombin Time 12.4 SEC (11.1-13.3)
[2023-06-09 06:56] LABS: Partial Thromboplastin Time 25.9 SEC (26.0-36.8)
[2023-06-09 06:59] LABS: Anion Gap 15 (12-20); Blood Urea Nitrogen 13 mg/dL (9-16); Calcium 9.2 mg/dL (8.4-10.2); Carbon Dioxide 23 mmol/L (22-29); Chloride 103 mmol/L (96-108); Creatinine Clr Calc Pharmacy 76.8; Estimated Glomerular Filt Rate > 60; Glucose Random 94 mg/dL (60-115); Potassium 4.3 mmol/L (3.3-5.1); Sodium 137 mmol/L (135-145)
[2023-06-09] MEDS: Albuterol Sulfate (0.083%) 2.5 MG/3 ML VIAL.NEB INHALE (07:00)
[2023-06-09 07:32] LABS: COVID-19 Test Negative (Negative); IDNOW Serial# 152EDE1D
--- NOTE | 2023-06-09 07:38 | MHC.SHP ---
Pre-Procedural Eval Section A - 24 Hr Update-Section A only Date of Service: 06/09/23 The patient is an INPATIENT: No Changes since office visit: Yes Patient answered all questions The patient has been examined within 24 hours of the surgical procedure. The History & Physical has been completed within 30 days and I have reviewed it.: Yes Section B - Complete if H&P > 30 days Chief Complaint: Postop Allergies: Allergies Allergy/AdvReac Type Severity Reaction Status Date / Time No Known Allergies Allergy Verified 06/04/23 09:59 Plan I have reviewed the history and physical and performed a pertinent physical examination on my patient. No changes have occurred unless specified. Time Spent With Patient Time: Total time managing care of this patient today ____ minutes.
[2023-06-09] MEDS: ceFAZolin Sodium/Dextrose,Iso 2 GM/50 ML PIGGYBACK IV ×2 (08:21→13:01)
--- NOTE | 2023-06-09 10:29 | P.OP_ITS ---
Operative Note Operative Note Date of Service: 06/09/23 Narrative: Operative note by [facility] Preoperative diagnosis: Right lower extremity atherosclerotic disease with rest pain Postoperative diagnosis: Same Procedure:1. Femoral to femoral bypass ([id number]) 2. Left common femoral endarterectomy Surgeon:Tj Edmondson M.D. Director Of Gift Planning: Dr. Teresa Anesthesia: Spinal Specimens: 1 Drains: None Estimated blood loss: 100 mL Indications: Pleasant 67-year-old gentleman who had undergone diagnostic angiogram demonstrated right common iliac occlusion. It was on amenable to endovascular intervention. He now presents for operative intervention. The patient has signed the informed consent after reviewing risks, complications, benefits, and alternatives previously discussed with the patient. The patient was given the opportunity to ask any additional questions or voice any concerns. All questions were answered to the patient's satisfaction. Procedure in detail: Patient was brought to the operating room prior to which a time-out was called for patient identification and site verification. Bilateral groins were prepped and draped in the standard surgical fashion. Longitudinal incisions were carried out over each common femoral approximately 10 cm in length. We 1st approached the left side which was the palpable side. We were able to easily dissect down into the common femoral artery. This was skeletonized. We placed silastic loops in the common femoral superficial femoral and profundus femorals. In a similar fashion we did this with the right side. We created a tunnel from left to right. We then administered 5000 units of systemic heparin. After 5 minutes of circulation time we 1st clamped down on to the inflow side the left side. We clamped the common superficial femoral and profundus femorals. We created an arteriotomy with an 11 blade. Significant calcific disease was noted. This had to be locally endarterectomized in order to obtain appropriate flow to the profundus femorals. Once this was accomplishe d we then used a Putnam Propaten 6 mm by 50 cm graft. This was trimmed to the appropriate size. We anastomosed with a Putnam CV 5 suture. This was circumferentially anastomosed. Upon completion it was flushed through the graft. Adequate hemostasis was achieved with snow and direct pressure. Once this was all accomplished we tunneled through and brought the graft to other side. In a similar fashion we trimmed the graft and we anastomosed to the right common femoral. Once again we used a CV 6 suture. Prior to closure this was all flushed clear. Then we closed. Adequate hemostasis was achieved. We did notice flow through the SFA which had a triphasic waveform. When the graft was clamped it went down to a monophasic waveform. Once this was all accomplished we used Tisseel sealant in both groins. Deep layer was reapproximated using 2 0 Polysorb superficial layer with 3-0 poly Sorb and finally skin with skin clips. Sterile dressings were applied. Patient tolerated the procedure well. Returned to recovery with stable vitals. This note is constructed using voice recognition software. While every effort has been made to ensure accuracy, pulmonary physical therapist errors may have been included. Thank you for allowing me to participate in the care of your patient. Yours sincerely, Tj Edmondson MD, FACS, R.P.V.I.
[2023-06-09] MEDS: Lactated Ringers 1,000 ML 100 ML IVCONT ×2 (13:01→23:04)
--- NOTE | 2023-06-09 14:42 | P.HPCC_ITS ---
History of Present Illness Date of Service: 06/09/23 Chief Complaint: Status post elective AAA endovascular repair 67-year-old gentleman with underlying history of COPD, bipolar disorder, hyperlipidemia, now postoperative day 0 status post elective AAA endovascular repair being monitored in the intensive care unit. Review of Systems 2 Constitutional: Constitutional: Denies daytime sleepiness, Denies excessive sweating, Denies fatigue, Denies fever(s), Denies lethargy, Denies malaise, Denies night sweats, Denies snoring and Denies weight loss Eyes: Eyes: Denies blurry vision and Denies itchy eyes ENT: Denies nasal congestion, Denies post nasal drip, Denies sinus pain, Denies sinus pressure and Denies other ( Thrush) Cardiovascular: Cardiovascular: Denies chest pain, Denies pedal edema, Denies dyspnea, Denies orthopnea and Denies paroxysmal nocturnal dyspnea Respiratory: Respiratory: Denies cough, Denies hemoptysis, Denies excessive phlegm production, Denies dyspnea, Denies snoring and Denies wheezing Gastrointestinal: Gastrointestinal: Denies abdominal pain and Denies heartburn Musculoskeletal: Musculoskeletal: Denies myalgias, Denies arthralgias and Denies joint swelling Integumentary/Breasts: Skin/Breast: Denies rash Neurologic: Denies memory loss and Denies seizure-like activity Psychiatric: Psychiatric: Denies abnormal sleep pattern, Denies anxiety and Denies memory loss Endocrine: Endocrine: Denies excessive sweating, Denies fatigue and Denies heat intolerance Hematologic/Lymphatic: Hematologic/Lymphatic: Denies easy bruising Allergic/Immunologic: Allergic/Immunologic: Denies itchy eyes, Denies seasonal rhinorrhea and Denies wheezing PMFSH Past Medical History Medical History (Updated 06/09/23 @ 14:43 by Christian Alonzo MD) RSV (respiratory syncytial virus infection) Personal history of nicotine dependence Abnormal CT scan, gallbladder (~02/2020) COPD (chronic obstructive pulmonary disease) Bacteremia (~02/2020) Bipolar 1 disorder Hyperlipemia Surgical History Surgical History (Updated 06/09/23 @ 14:43 by Christian Alonzo MD) S/P aortogram History of skin graft Social History Social History Household Members: Spouse Housing: House Are you a primary companion caregiver to a significant other at home: No Do you presently have visiting nurse or other home services: No Unable to assess alcohol history related to: Unable to respond Alcohol intake: never Comment: counts correct Patient Tobacco Use Status: Current everyday Tobacco user Tobacco use type: Cigarette Cigarette Packs Per Day: 2 Cigarettes Per Day: 40.0 Years Smoked: 10 Smoked in Last 30 Days: Yes e-Cigarette/Vaping Use: Currently Using Patient Interested in Nicotine Replacement: No Patient Given Instructions on How to Stop Smoking: Yes Date Education Initiated: 06/09/23 Second Hand Smoke Exposure: Yes Use of substances other than those prescribed or required for medical reasons: Yes Substance Use Type: Marijuana Substance Use Type Other:: smokes marijuana Substance Use Frequency: Chronic Longstanding Last Used Substance: Days (ago) Last Used Substance Other:: 06/07/23 Currently Displaying Signs/Symptoms of Drug Intoxication Withdrawal: No Any prior treatment program specific to substance use: No Have you been hit, kicked, punched, or otherwise hurt by someone within the past year? If so, by whom?: No Do you feel safe in your current relationship?: Yes Is there a partner from a previous relationship who is making you feel unsafe now?: No Are you made to feel afraid or neglected: No Spiritual Healthcare Practices: none per patient Gnosticist Healthcare Practices: none per patient Cultural Healthcare Practices: none per patient Are you DNR?: No Advance Directives: Yes Advance Directives Information Provided: Yes Advance Directives on File: Yes Advance Directives Date on File: 02/26/23 Do you have thoughts of harming others: None Do you have a plan to hurt others: No Plan Recently lost weight without trying: No How much weight loss: Not applicable Eating poorly because of decreased appetite: No Nutrition screen score: 0 Nutrition Risks: No Nutritional Risk Poor oral hygiene: No service: No Current occupational status: retired [employer] Allergies Allergy/AdvReac Type Severity Reaction Status Date / Time No Known Allergies Allergy Verified 06/04/23 09:59 Active Medications: Current Medications Acetaminophen (Acetaminophen 325 Mg Tablet) 650 mg PO Q6H PRN PRN Reason: Pain, Mild (Pain Scale 1-3) Albuterol Sulfate (Albuterol Sulfate (0.083%) 2.5 Mg/3 Ml Vial.Neb) 2.5 mg INHALE ONCE PRN PRN Reason: Wheezing Stop: 06/09/23 14:56 Albuterol Sulfate (Albuterol Sulfate (0.083%) 2.5 Mg/3 Ml Vial.Neb) 2.5 mg INHALE QID PRN PRN Reason: shortness of breath or wheezing Albuterol Sulfate (Albuterol Sulfate 90 Mcg 8 Gm Inhaler) 2 puff INHALE RQ6H PRN PRN Reason: shortness of breath or wheezing Aspirin (Aspirin Enteric Coated 81 Mg Tablet.Dr) 81 mg PO BEDTIME [facility] Atorvastatin Calcium (Atorvastatin Calcium 80 Mg Tablet) 80 mg PO BEDTIME FRAN Divalproex Sodium (Divalproex Sodium Er 500 Mg Tab.Er.24h) 1,000 mg PO BEDTIME FRAN Escitalopram Oxalate (Escitalopram Oxalate 10 Mg Tablet) 15 mg PO BEDTIME FRAN Lactated Ringer's (Lr) 1,000 mls @ 100 mls/hr IVCONT .Q10H [facility] Last Admin: 06/09/23 13:26 Dose: Not Given Cefazolin Sodium/Dextrose (Ancef) 2 gm in 50 mls @ 100 mls/hr IV POSTOP ONE Stop: 06/09/23 14:49 Last Infusion: 06/09/23 14:31 Dose: Infused Morphine Sulfate (Morphine Sulfate 2 Mg/Ml Cartridge) 2 mg IVPUSH Q4H PRN; Protocol PRN Reason: Pain, Severe (Pain Scale 7-10) Olanzapine (Olanzapine 10 Mg Tablet) 10 mg PO BEDTIME [facility] Ondansetron HCl (Ondansetron Hcl 4 Mg/2 Ml Vial) 4 mg IVPUSH ONCE PRN PRN Reason: Nausea and Vomiting Stop: 06/09/23 14:56 Oxycodone HCl (Oxycodone Hcl Immed Release 5 Mg Tablet) 5 mg PO Q4H PRN PRN Reason: Pain, Moderate(Pain Scale 4-6) Sodium Chloride (0.9 % Sodium Chloride Flush 3 Ml Syringe) 3 ml IVFLUSH QSHIFT [facility] Last Admin: 06/09/23 13:26 Dose: Not Given Home Medications Medication Instructions Recorded Confirmed Last Taken Type citalopram 20 mg tablet 30 mg PO BEDTIME 03/02/20 06/04/23 04/22/23 History divalproex 500 mg tablet,extended 1,000 mg PO BEDTIME 03/02/20 06/04/23 04/22/23 History release 24 hr olanzapine 10 mg tablet 10 mg PO BEDTIME 03/02/20 06/04/23 04/22/23 History aspirin 81 mg tablet,delayed 81 mg PO BEDTIME 05/27/23 06/04/23 Unknown History release atorvastatin 80 mg tablet 80 mg PO BEDTIME 06/02/23 06/04/23 Unknown History Physical Exam 2 Vital Signs: Vital Signs: Last Vital Signs Temp 96.7 F L 06/09/23 13:00 Pulse 75 06/09/23 14:00 Resp 20 06/09/23 14:00 BP 124/68 06/09/23 14:00 Pulse Ox 97 06/09/23 14:00 O2 Del Method Room Air 06/09/23 14:00 O2 Flow Rate 6 06/09/23 10:50 BMI result Body Mass Index 25.1 Const: General: no acute distress and alert Nutritional Appearance: not obese Orientation/consciousness: Other orientation findings ( oriented) HEENT: Head: Yes atraumatic Eyes: General: appearance normal, both eyes and all related structures S clerae: sclerae normal EOM: EOMs intact bilaterally Neck: Neck: Yes supple Lymphatic: no lymphadenopathy noted Resp: Effort & Inspection: normal respiratory effort and no use of accessory muscles Auscultation: clear to auscultation bilaterally Cardio: Rate: regular rate Rhythm: regular rhythm Heart sounds: no gallops, no murmurs and no rubs GI: Palpation (GI): Soft to palpation and nontender Auscultation: normal bowel sounds Skin: General skin exam: other ( warm) Extrem: General: No clubbing, No cyanosis, No edema and Yes other (Bilateral femoral access sites without hematoma) Results Labs 06/09/23 06:32 06/09/23 06:32 Labs: Laboratory Results - last 24 hr 06/09/23 06/09/23 06:25 06:32 MCV 94.5 MCH 32.2 MCHC 34.1 RDW 14.5 Plt Count 211 MPV 9.4 Absolute Nucleated RBC 0.000 Nucleated RBC % (auto) 0.0 PT 12.4 INR 1.0 APTT 25.9 L Anion Gap 15 Estim Creat Clear Calc 76.8 Estimated GFR > 60 Random Glucose 94 Calcium 9.2 COVID-19 (MELLISA) Negative COVID-19 Clin Com See Note Assessment and Plan (1) Status post AAA (abdominal aortic aneurysm) repair: Status: Acute (2) COPD (chronic obstructive pulmonary disease): Status: Acute (3) Hyperlipemia: Status: Acute (4) Bipolar 1 disorder: Status: Acute Plan Assessment: 67-year-old gentleman with underlying COPD hyperlipidemia, now postoperative day 0 after an elective AAA endovascular repair being monitored in the intensive care unit Plan: Neuro: No acute issues. Cardiac: Postoperatively 0 status post endovascular AAA repair. Vascular surgery service care appreciated. Maintain SBP<160. History of hyperlipidemia. Pulmonary: No acute issues. Underlying COPD. Renal: No acute issues. Endo: No acute issues. GI: No acute issues. ID: No acute issues Heme/Onc: No acute issues. Psych: No acute issues. Underlying history of bipolar disease. Miscellaneous: No acute issues. Prophylaxis: Per vascular surgery Diet: Regular
[2023-06-09] MEDS: Escitalopram Oxalate 10 MG TABLET 15 MG PO (19:58)
[2023-06-09] MEDS: Divalproex Sodium ER 500 MG TAB.ER.24H 1000 MG PO (19:59)
[2023-06-09] MEDS: Aspirin Enteric Coated 81 MG TABLET.DR PO (20:00)
[2023-06-09] MEDS: Atorvastatin Calcium 80 MG TABLET PO (20:00)
[2023-06-09] MEDS: OLANZapine 10 MG TABLET PO (20:00)
[2023-06-09] MEDS: oxyCODONE HCl Immed Release 5 MG TABLET PO (20:24)
[2023-06-09] MEDS: 0.9 % Sodium Chloride Flush 3 ML SYRINGE IVFLUSH (23:05)
[2023-06-09] MEDS: Melatonin 3 MG TABLET PO (23:36)
[2023-06-10] VITALS (14 sets, daily range): BP systolic 97–170; BP diastolic 43–79; PULSE 57–72; RESP 12–22; TEMP 36.4–37; O2SAT 93–96; BMI 25.9
[2023-06-10 05:45] LABS: VBG Base Excess 3.3 mmol/L; VBG HCO3 27 mmol/L (22-26); VBG pCO2 38 mmHg; VBG pH 7.46 (7.32-7.43); VBG pO2 50 mmHg
[2023-06-10 06:06] LABS: MANUAL DIFF FLAG NO
[2023-06-10 06:11] LABS: Basophils Percent Auto 0.3 % (0-2); Eosinophils Absolute Auto 0.1 X10*3/uL (0.0-0.4); Eosinophils Percent Auto 1.1 % (0-4); Hematocrit 40.3 % (42.0-52.0); Hemoglobin 13.9 g/dl (14.0-18.0); Imm Gran Abs Auto 0.06 X10*3/uL (0.00-0.03); Imm Gran Pct Auto 0.5 % (0.0-0.4); Lymphocytes Absolute Auto 2.9 X10*3/uL (1.2-4.9); Lymphocytes Percent Auto 22.5 % (20-40); Mean Corpuscular HGB Conc 34.5 g/dl (31.0-36.0); Mean Corpuscular Hemoglobin 32.2 pg (27.0-33.0); Mean Corpuscular Volume 93.3 fL (80.0-98.0); Mean Platelet Volume 9.8 fL (9.4-12.4); Monocytes Absolute Auto 1.1 X10*3/uL (0.1-1.2); Monocytes Percent Auto 8.6 % (2-11); Neutrophils Absolute Auto 8.6 x10*3/uL (2.0-8.3); Platelet Count 192 X10*3/uL (160-400); Red Blood Count 4.32 X10*6/uL (4.60-5.80); Red Cell Distribution Width 14.1 % (11.0-16.0); White Blood Count 12.8 X10*3/uL (4.8-10.8)
[2023-06-10 06:26] LABS: Albumin Level 2.9 g/dL (3.5-5.0); Anion Gap 10 (12-20); Blood Urea Nitrogen 12 mg/dL (9-16); Calcium 8.8 mg/dL (8.4-10.2); Carbon Dioxide 26 mmol/L (22-29); Chloride 102 mmol/L (96-108); Creatinine Clr Calc Pharmacy 93.9; Estimated Glomerular Filt Rate > 60; Glucose Random 96 mg/dL (60-115); Magnesium 1.6 mg/dL (1.6-2.6); Phosphorus 3.4 mg/dL (2.7-4.5); Sodium 134 mmol/L (135-145)
[2023-06-10 07:07] LABS: Venous Blood Gas Refer to POC result
--- NOTE | 2023-06-10 11:00 | MHC.CM.PN ---
Met w/pt to review d/c planning needs: pt is independent with all care needs, drives, has no services or DME. HCP on file and verified: IMM delivered: spouse to transport pt to home. No additional needs identified.
--- NOTE | 2023-06-10 12:01 | HO.POSTANES ---
Post Anesthesia Evaluation Post Anesthesia Evaluation Date of Service: 06/10/23 Vital Signs: Vital Signs Temp Pulse Resp BP Pulse Ox O2 Del Method 06/10/23 09:00 63 22 H 114/79 96 Room Air 06/10/23 08:24 97.6 F 06/10/23 08:10 95 Room Air 06/10/23 08:00 59 12 126/43 L 95 Room Air 06/10/23 07:00 57 17 111/63 94 Room Air 06/10/23 05:52 60 17 121/64 95 Room Air 06/10/23 04:51 60 14 119/71 94 Room Air 06/10/23 03:50 72 15 127/49 L 95 Room Air 06/10/23 02:51 65 13 127/57 L 93 Room Air 06/10/23 01:53 65 16 110/58 L 95 Room Air 06/10/23 01:10 98.2 F 64 18 110/58 L 94 Room Air 06/10/23 00:50 58 17 97/46 L 95 Room Air Anesthesia: Spinal Mental Status: Awake Pain Control: Satisfactory Nausea/Vomiting: None Hydration: Adequate Anesthesia-Related Issues: No Anes. Related Issues
[2023-06-10] MEDS: Acetaminophen 325 MG TABLET 650 MG PO ×2 (14:55→23:15)
--- NOTE | 2023-06-10 14:59 | PC.NURSE ---
Patient transferred from ICU to Med/surg. Alert and oriented x3. Denies headache, dizziness, chest pain. Neuro exam unremarkable, baseline tremors. Bilateral groin dressing C/D/I. Patient reporting increased pain at surgical sites, Tylenol given per EMAR. Regular diet. High fall risk precautions in place. Plan of care reviewed, call noyola in place, all needs met.
[2023-06-10] MEDS: oxyCODONE HCl Immed Release 5 MG TABLET PO ×3 (15:14→23:15)
--- NOTE | 2023-06-10 15:20 | P.PNVS_ITS ---
Subjective Subjective Date of Service: 06/10/23 Patient reports: no new complaints and feels better Interval history: Patient is postop day 1 status post fem-fem bypass. No interval issues. Doing relatively well. Pain well controlled. He reports that his legs are warmer. He is tolerating p.o. diet. Physical Exam Vital Signs: Vital Signs: Last Vital Signs Temp 97.6 F 06/10/23 08:24 Pulse 63 06/10/23 09:00 Resp 22 H 06/10/23 09:00 BP 114/79 06/10/23 09:00 Pulse Ox 96 06/10/23 09:00 O2 Del Method Room Air 06/10/23 09:00 O2 Flow Rate 6 06/09/23 10:50 BMI result Body Mass Index 25.9 Const: General: cooperative, healthy appearing and comfortable Orientation/consciousness: oriented to person, oriented to place and oriented to time HEENT: Head: Yes normal to inspection Neck: Neck: Yes normal visual inspection Carotids: no bruits Chest: Chest palpation & inspection: normal inspection of the chest Resp: Effort & Inspection: normal respiratory effort and able to speak in complete sentences Auscultation: clear to auscultation bilaterally, no crackles, no rales, no rhonchi and no wheezes Cardio: Other: Bilateral DP signal Rate: regular rate Rhythm: regular rhythm Heart sounds: S1 normal heart sound present and S2 normal heart sound present Bruits: no carotid bruits Peripheral pulses: Peripheral pulses 2+ throughout GI: Inspection: Yes normal to inspection Skin: Wounds: no wounds Hair: normal Neuro: General: oriented to person, oriented to place and oriented to time Cranial nerves: Yes CN's II-XII intact bilaterally and Yes Normal hearing present Cognition (Neuro): normal cognition Motor exam (neuro): 5/5 motor strength present throughout Extrem: Other: venous exam: No significant superficial varicosities or spider telangiectasias, minimal edema General: No clubbing, No cyanosis and No edema Psych: Appearance: grossly normal Mental Status: mental status grossly normal Speech and movement: Normal speech and movement present Progress Note: A&P Assessment and plan (1) PAD (peripheral artery disease): Status: Acute Assessment and Plan: In short patient has done well status post femoral to femoral bypass. Alex was DC and he was transferred up to floor. We will see how he does with ambulation and would plan for discharge soon thereafter. Thank you for the pumping station engineer assistance in his care. Time Spent With Patient Time: Total time managing care of this patient today ____ minutes. Procedures Date of Service Date of Service: 06/10/23 Quality Stroke Does the patient have a stroke diagnosis?: No VTE Prior VTE?: No VTE Risk Level:: Surgical - moderate VTE Device Contraindication: N/A - Device Ordered VTE Drug Contraindication: N/A - Med Ordered
[2023-06-10] MEDS: Heparin Sodium,Porcine 5,000 UNIT/ML VIAL 5000 UNIT SUBCUT ×2 (15:32→23:15)
[2023-06-10] MEDS: 0.9 % Sodium Chloride Flush 3 ML SYRINGE IVFLUSH ×2 (15:32→20:04)
[2023-06-10] MEDS: Atorvastatin Calcium 80 MG TABLET PO (20:04)
[2023-06-10] MEDS: Escitalopram Oxalate 10 MG TABLET 15 MG PO (20:04)
[2023-06-10] MEDS: Aspirin Enteric Coated 81 MG TABLET.DR PO (20:04)
[2023-06-10] MEDS: Divalproex Sodium ER 500 MG TAB.ER.24H 1000 MG PO (20:04)
[2023-06-10] MEDS: OLANZapine 10 MG TABLET PO (20:04)
[2023-06-11 03:47] VITALS: BP 126/61; PULSE 58; RESP 16; TEMP 36.3; O2SAT 95
[2023-06-11 07:14] VITALS: BP 116/65; PULSE 65; RESP 18; TEMP 36.3; O2SAT 98
[2023-06-11 08:00] VITALS: O2SAT 95
[2023-06-11] MEDS: Heparin Sodium,Porcine 5,000 UNIT/ML VIAL 5000 UNIT SUBCUT (08:58)
[2023-06-11] MEDS: 0.9 % Sodium Chloride Flush 3 ML SYRINGE IVFLUSH (08:59)
--- NOTE | 2023-06-11 10:52 | P.CONHOSP_ITS ---
History of Present Illness Data of Consult Service Date: 06/11/23 Requesting physician: Tj Edmondson Primary Care Provider: Benny Cordero MD HPI 59-year-old male with underlying history of COPD bipolar hyperlipidemia presents for elective fem-fem bypass grafting by Dr. Edmondson. Observed postoperatively in the unit overnight without any acute issues. Uneventful night on general medical floor Review of Systems 2 Review of Systems: Denies chest pain Denies shortness of breath Denies nausea vomiting diarrhea Denies fever chills PMFSH Medical History RSV (respiratory syncytial virus infection) Personal history of nicotine dependence Abnormal CT scan, gallbladder (~02/2020) COPD (chronic obstructive pulmonary disease) Bacteremia (~02/2020) Bipolar 1 disorder Hyperlipemia Surgical History S/P aortogram History of skin graft Social History Household Members: Spouse Housing: House Are you a primary acute care assistant to a significant other at home: No Do you presently have visiting nurse or other home services: No Unable to assess alcohol history related to: Unable to respond Alcohol intake: never Comment: counts correct Patient Tobacco Use Status: Current everyday Tobacco user Tobacco use type: Cigarette Cigarette Packs Per Day: 2 Cigarettes Per Day: 40.0 Years Smoked: 10 Smoked in Last 30 Days: Yes e-Cigarette/Vaping Use: Currently Using Patient Interested in Nicotine Replacement: No Patient Given Instructions on How to Stop Smoking: Yes Date Education Initiated: 06/09/23 Second Hand Smoke Exposure: Yes Use of substances other than those prescribed or required for medical reasons: Yes Substance Use Type: Marijuana Substance Use Type Other:: smokes marijuana Substance Use Frequency: Chronic Longstanding Last Used Substance: Days (ago) Last Used Substance Other:: 06/07/23 Currently Displaying Signs/Symptoms of Drug Intoxication Withdrawal: No Any prior treatment program specific to substance use: No Have you been hit, kicked, punched, or otherwise hurt by someone within the past year? If so, by whom?: No Do you feel safe in your current relationship?: Yes Is there a partner from a previous relationship who is making you feel unsafe now?: No Are you made to feel afraid or neglected: No Spiritual Healthcare Practices: none per patient Christian Healthcare Practices: none per patient Cultural Healthcare Practices: none per patient Are you DNR?: No Advance Directives: Yes Advance Directives Information Provided: Yes Advance Directives on File: Yes Advance Directives Date on File: 02/26/23 Do you have thoughts of harming others: None Do you have a plan to hurt others: No Plan Recently lost weight without trying: No How much weight loss: Not applicable Eating poorly because of decreased appetite: No Nutrition screen score: 0 Nutrition Risks: No Nutritional Risk Poor oral hygiene: No service: No Current occupational status: [employer] Allergies Allergy/AdvReac Type Severity Reaction Status Date / Time No Known Allergies Allergy Verified 06/04/23 09:59 Active Medications: Current Medications Acetaminophen (Acetaminophen 325 Mg Tablet) 650 mg PO Q6H PRN PRN Reason: Pain, Mild (Pain Scale 1-3) Last Admin: 06/10/23 23:15 Dose: 650 mg Albuterol Sulfate (Albuterol Sulfate (0.083%) 2.5 Mg/3 Ml Vial.Neb) 2.5 mg INHALE QID PRN PRN Reason: shortness of breath or wheezing Albuterol Sulfate (Albuterol Sulfate 90 Mcg 8 Gm Inhaler) 2 puff INHALE RQ6H PRN PRN Reason: shortness of breath or wheezing Aspirin (Aspirin Enteric Coated 81 Mg Tablet.Dr) 81 mg PO BEDTIME [facility] Last Admin: 06/10/23 20:04 Dose: 81 mg Atorvastatin Calcium (Atorvastatin Calcium 80 Mg Tablet) 80 mg PO BEDTIME [facility] Last Admin: 06/10/23 20:04 Dose: 80 mg Divalproex Sodium (Divalproex Sodium Er 500 Mg Tab.Er.24h) 1,000 mg PO BEDTIME [facility] Last Admin: 06/10/23 20:04 Dose: 1,000 mg Escitalopram Oxalate (Escitalopram Oxalate 10 Mg Tablet) 15 mg PO BEDTIME [facility] Last Admin: 06/10/23 20:04 Dose: 15 mg Heparin Sodium (Porcine) (Heparin Sodium,Porcine 5,000 Unit/Ml Vial) 5,000 unit SUBCUT Q8H [facility] Last Admin: 06/11/23 08:58 Dose: 5,000 unit Morphine Sulfate (Morphine Sulfate 2 Mg/Ml Cartridge) 2 mg IVPUSH Q4H PRN; Protocol PRN Reason: Pain, Severe (Pain Scale 7-10) Olanzapine (Olanzapine 10 Mg Tablet) 10 mg PO BEDTIME [facility] Last Admin: 06/10/23 20:04 Dose: 10 mg Oxycodone HCl (Oxycodone Hcl Immed Release 5 Mg Tablet) 5 mg PO Q4H PRN PRN Reason: Pain, Moderate(Pain Scale 4-6) Last Admin: 06/10/23 23:15 Dose: 5 mg Sodium Chloride (0.9 % Sodium Chloride Flush 3 Ml Syringe) 3 ml IVFLUSH QSHIFT [facility] Last Admin: 06/11/23 08:59 Dose: 3 ml Home Medications Medication Instructions Recorded Confirmed Last Taken Type citalopram 20 mg tablet 30 mg PO BEDTIME 03/02/20 06/04/23 04/22/23 History divalproex 500 mg tablet,extended 1,000 mg PO BEDTIME 03/02/20 06/04/23 04/22/23 History release 24 hr olanzapine 10 mg tablet 10 mg PO BEDTIME 03/02/20 06/04/23 04/22/23 History aspirin 81 mg tablet,delayed 81 mg PO BEDTIME 05/27/23 06/04/23 Unknown History release atorvastatin 80 mg tablet 80 mg PO BEDTIME 06/02/23 06/04/23 Unknown History Physical Exam 2 Vital Signs and Narrative: Vital Signs: Last Vital Signs Temp 97.4 F 06/11/23 07:14 Pulse 65 06/11/23 07:14 Resp 18 06/11/23 07:14 BP 116/65 06/11/23 07:14 Pulse Ox 98 06/11/23 07:14 O2 Del Method Room Air 06/11/23 07:14 O2 Flow Rate 6 06/09/23 10:50 BMI result Body Mass Index 25.9 Const: Other: Awake alert no acute distress Resp: Other: Scattered rhonchi that clear with cough. No rales rhonchi or wheezes (2 pack per day smoker) Cardio: Other: No S4; positive S1-S2; no S3 murmurs rubs or gallops GI: Other: Soft nontender nondistended normoactive bowel sounds Extrem: Other: No edema bilaterally. DP 2+ bilateral palpable Results Labs 06/10/23 05:31 06/10/23 05:31 Assessment and Plan (1) PAD (peripheral artery disease): Status: Acute (2) COPD (chronic obstructive pulmonary disease): Qualifiers: COPD type: unspecified COPD Qualified Code(s): J44.9 - Chronic obstructive pulmonary disease, unspecified Status: Acute Plan 58-year-old gentleman history of COPD (2 pack per day smoker) bipolar disorder hyperlipidemia presents for elective fem fem bypass graft. Patient underwent this procedure without issues. Observed in ICU overnight and discharged to floor. No acute issues overnight. 1.PAD -status post fem-fem bypass graft ... No acute issues -as per vascular surgery 2.COPD Continues to smoke 2 packs of cigarettes a day. .. Interesting in cessation. To discuss with PCP -continue outpatient therapies Thank you for the consultation. Will sign off at this point. Please call if I can be of service
--- NOTE | 2023-06-11 11:34 | PM.DS ---
DS: Providers Provider Date of Service: 06/11/23 Date of admission: 06/09/23 06:26 Primary care physician: Benny Cordero MD Consults: 06/11/23 08:09 Consult to Hospitalist Routine Comment: Consulting Provider: Hospitalist Reason For Exam: medical comanagement with vascular surgery DS: Diagnosis Discharge Diagnosis (1) PAD (peripheral artery disease): Status: Acute (2) COPD (chronic obstructive pulmonary disease): Status: Acute DS: Summary Hospital Course Hospital Course: Patient underwent femoral to femoral bypass on Friday. He was observed 24 hours in the ICU. Appear to be doing extremely well. Postop day 1 he was transferred up to regular floor. Was moving ambulating with no significant difficulty. Postop day 2 he appeared to be doing well pain was well controlled stated that his feet felt significantly better. He was discharged. Time Attestation Total time managing care of this patient today: 45 mintues. Discharge Coordination Time (in mins): 45 Quality: Safe Use of Opioids Does Pt have an Active Cancer Diagnosis on the Problem List?: No Quality: Stroke Does the patient have a stroke diagnosis?: No Physical Exam Vital Signs: Vital Signs: Last Vital Signs Temp 97.4 F 06/11/23 07:14 Pulse 65 06/11/23 07:14 Resp 18 06/11/23 07:14 BP 116/65 06/11/23 07:14 Pulse Ox 95 06/11/23 08:00 O2 Del Method Room Air 06/11/23 08:00 O2 Flow Rate 6 06/09/23 10:50 BMI result Body Mass Index 25.9 Const: General: cooperative, healthy appearing and no acute distress Orientation/consciousness: oriented to person, oriented to place and oriented to time HEENT: Head: Yes normal to inspection Neck: Carotids: no bruits Chest: Chest palpation & inspection: normal inspection of the chest Resp: Effort & Inspection: normal respiratory effort and able to speak in complete sentences Auscultation: clear to auscultation bilaterally Cardio: Rate: regular rate Heart sounds: S1 normal heart sound present and S2 normal heart sound present GI: Inspection: Yes normal to inspection Skin: Other: Bilateral groins well-healed General skin exam: no rashes or lesions noted Wounds: no wounds Neuro: General: oriented to person, oriented to place, oriented to time and CN's II-XI intact bilaterally Extrem: General: Yes normal to inspection, Yes full ROM and Yes no clubbing, cyanosis or edema Psych: Appearance: grossly normal and well kempt Speech and movement: Normal speech and movement present Affect: normal affect DS: Data Data Completed and Pending Pending studies at discharge: Pending at discharge 06/09/23 08:52 Surgical [PTH] Routine Discharge Plan Discharge Anticipated Discharge Date/Time: 06/11/23 11:29 Patient Disposition: Home, Self-Care Discharge Diagnosis: Status post femoral to femoral bypass Referrals: Benny Cordero MD [Primary Care Provider] - 1 Week Discharge Medications: New oxycodone-acetaminophen [Endocet] 5-325 mg tablet 1 tab PO Q8H PRN (Reason: pain) Qty: 10 0RF Rx Instructions: Partial Fill upon patient request. Continued olanzapine 10 mg tablet 10 mg PO BEDTIME citalopram 20 mg tablet 30 mg PO BEDTIME divalproex 500 mg tablet extended release 24 hr 1,000 mg PO BEDTIME albuterol sulfate [ProAir HFA] 90 mcg/actuation HFA aerosol inhaler 2 puff inhalation Q6H PRN (Reason: shortness of breath or wheezing) Qty: 18 0RF atorvastatin 80 mg Tablet 80 mg PO BEDTIME ipratropium-albuterol 0.5 mg-3 mg(2.5 mg base)/3 mL solution for nebulization 3 ml inhalation Q4-6H PRN (Reason: shortness of breath or wheezing) Qty: 180 5RF albuterol sulfate 2.5 mg /3 mL (0.083 %) solution for nebulization 2.5 mg inhalation QID MDD 12ml PRN (Reason: shortness of breath or wheezing) Qty: 180 3RF aspirin 81 mg tablet,delayed release (DR/EC) 81 mg PO BEDTIME Dulera 100-5 mcg/actuation HFA aerosol inhaler 2 puff inhalation BID Qty: 13 3RF Trelegy Ellipta 200-62.5-25 mcg blister with device 1 inh inhalation DAILY Qty: 60 6RF Stand Alone Forms: Patient Portal Discharge page Activity Restrictions/Additional Instructions: Skin lyudmila was used and you may shower on Friday. Take it easy today and you may ambulate around the house. Within 24 hours you can resume normal activity You may climb a flight of stairs as tolerated Do not lift anything heavier than a gallon of milk See Dr. Edmondson in follow-up in approximately 2 weeks time. You should already have an appointment if not please call my office at [phone] Please take Tylenol and Endocet as needed for pain. Please take a baby aspirin daily If you notice excessive bleeding from the groin please immediately call my office or return to the emergency room. Care Plan Goals: Walk more Health Concerns: JUNAID Joshi Plan of Treatment: Surveillance follow-up Assessment: Status post femoral to femoral bypass
--- NOTE | 2023-06-11 13:05 | PM.DS ---
DS: Providers Provider Date of Service: 06/11/23 Date of admission: 06/09/23 06:26 Primary care physician: Benny Cordero MD Consults: 06/11/23 08:09 Consult to Hospitalist Routine Comment: Consulting Provider: Hospitalist Reason For Exam: medical comanagement with vascular surgery DS: Diagnosis Discharge Diagnosis (1) PAD (peripheral artery disease): Status: Acute (2) COPD (chronic obstructive pulmonary disease): Status: Acute DS: Summary Hospital Course Hospital Course: Patient underwent femoral to femoral bypass on Friday. He was observed 24 hours in the ICU. Appear to be doing extremely well. Postop day 1 he was transferred up to regular floor. Was moving ambulating with no significant difficulty. Postop day 2 he appeared to be doing well pain was well controlled stated that his feet felt significantly better. He was discharged. Time Attestation Discharge Coordination Time (in mins): 35 Quality: Safe Use of Opioids Does Pt have an Active Cancer Diagnosis on the Problem List?: No Quality: Stroke Does the patient have a stroke diagnosis?: No Physical Exam Vital Signs: Vital Signs: Last Vital Signs Temp 97.4 F 06/11/23 07:14 Pulse 65 06/11/23 07:14 Resp 18 06/11/23 07:14 BP 116/65 06/11/23 07:14 Pulse Ox 95 06/11/23 08:00 O2 Del Method Room Air 06/11/23 08:00 O2 Flow Rate 6 06/09/23 10:50 BMI result Body Mass Index 25.9 Const: Other: Awake alert no acute distress Resp: Other: Scattered rhonchi that clear with cough. No rales rhonchi or wheezes (2 pack per day smoker) Cardio: Other: No S4; positive S1-S2; no S3 murmurs rubs or gallops GI: Other: Soft nontender nondistended normoactive bowel sounds Extrem: Other: No edema bilaterally. DP 2+ bilateral palpable DS: Data Data Completed and Pending Pending studies at discharge: Pending at discharge 06/09/23 08:52 Surgical [PTH] Routine Discharge Plan Discharge Anticipated Discharge Date/Time: 06/11/23 11:29 Patient Disposition: Home, Self-Care Discharge Diagnosis: Status post femoral to femoral bypass Referrals: Benny Cordero MD [Primary Care Provider] - 1 Week Discharge Medications: New oxycodone-acetaminophen [Endocet] 5-325 mg tablet 1 tab PO Q8H PRN (Reason: pain) Qty: 10 0RF Rx Instructions: Partial Fill upon patient request. Continued olanzapine 10 mg tablet 10 mg PO BEDTIME citalopram 20 mg tablet 30 mg PO BEDTIME divalproex 500 mg tablet extended release 24 hr 1,000 mg PO BEDTIME albuterol sulfate [ProAir HFA] 90 mcg/actuation HFA aerosol inhaler 2 puff inhalation Q6H PRN (Reason: shortness of breath or wheezing) Qty: 18 0RF atorvastatin 80 mg Tablet 80 mg PO BEDTIME ipratropium-albuterol 0.5 mg-3 mg(2.5 mg base)/3 mL solution for nebulization 3 ml inhalation Q4-6H PRN (Reason: shortness of breath or wheezing) Qty: 180 5RF albuterol sulfate 2.5 mg /3 mL (0.083 %) solution for nebulization 2.5 mg inhalation QID MDD 12ml PRN (Reason: shortness of breath or wheezing) Qty: 180 3RF aspirin 81 mg tablet,delayed release (DR/EC) 81 mg PO BEDTIME Dulera 100-5 mcg/actuation HFA aerosol inhaler 2 puff inhalation BID Qty: 13 3RF Trelegy Ellipta 200-62.5-25 mcg blister with device 1 inh inhalation DAILY Qty: 60 6RF Discharge Orders: Discharge Order (Routine); Ordered 06/11/23 Ordered By: Delfino Evans Diet: Advance to usual diet Activity on Discharge: As tolerated Stand Alone Forms: Patient Portal Discharge page Activity Restrictions/Additional Instructions: Skin lyudmila was used and you may shower on Friday. Take it easy today and you may ambulate around the house. Within 24 hours you can resume normal activity You may climb a flight of stairs as tolerated Do not lift anything heavier than a gallon of milk See Dr. Edmondson in follow-up in approximately 2 weeks time. You should already have an appointment if not please call my office at [phone] Please take Tylenol and Endocet as needed for pain. Please take a baby aspirin daily If you notice excessive bleeding from the groin please immediately call my office or return to the emergency room. Care Plan Goals: Walk more Health Concerns: JUNAID Joshi Plan of Treatment: Surveillance follow-up Assessment: Status post femoral to femoral bypass
--- NOTE | 2023-06-11 13:27 | MHC.CM.PN ---
EMR reviewed. Patient is medically cleared for dc home self care. will provide transportation ~1345. RN aware.
== END 2023-06-11 13:40 | disposition home or self-care (01) | DRG 254 ==
LOC: HO.SSSA 06:47 → HO.ICU 11:47 → HO.S3 06-10 13:24
PROVIDERS: Internal Medicine Pulmonary Disease; Nurse Practitioner; Admitting Provider Surgery Vascular Surgery; PCP Internal Medicine; Visit Provider Hospitalist
PROC: 041L0JH Bypass Left Femoral Artery to Right Femoral Artery with Synthetic Substitute, Open Approach (ICD-10-PCS; principal; 2023-06-09 07:30)
DX: I70.221 Atherosclerosis of native arteries of extremities with rest pain, right leg (principal); F31.9 Bipolar disorder, unspecified; F17.210 Nicotine dependence, cigarettes, uncomplicated; Z71.6 Tobacco abuse counseling; J44.9 Chronic obstructive pulmonary disease, unspecified; Z20.822 Contact with and (suspected) exposure to COVID-19; Z79.51 Long term (current) use of inhaled steroids; Z79.82 Long term (current) use of aspirin; Z79.899 Other long term (current) drug therapy
CPT/HCPCS: 36415; 80048; 82040; 82803; 83735; 84100; 85025; 85027; 85610; 85730; 86850; 86900; 86901; 87635; 88304; 88311; A4649; C1758; C1768; J0131; J0665; J0690; J1644; J2250; J2371; J2704; J2720; J2795; J3010; J7120

== ENCOUNTER → 2023-06-09 06:26 | Outpatient (BNV) | payer MEDICARE, SELFPAY | PROVIDERS: Admitting Provider Surgery Vascular Surgery; PCP Internal Medicine; Visit Provider Hospitalist | DX: J44.9 Chronic obstructive pulmonary disease, unspecified (principal); I73.9 Peripheral vascular disease, unspecified | CPT/HCPCS: 99223 ==

== ENCOUNTER → 2023-06-09 06:26 | Outpatient (BNV) | payer MEDICARE, SELFPAY | PROVIDERS: Admitting Provider Surgery Vascular Surgery; PCP Internal Medicine; Visit Provider Surgery Vascular Surgery | DX: I70.221 Atherosclerosis of native arteries of extremities with rest pain, right leg (principal) | CPT/HCPCS: 35661; 99024 ==

== ENCOUNTER → 2023-06-09 06:26 | Outpatient (BNV) | payer MEDICARE, SELFPAY | PROVIDERS: Admitting Provider Surgery Vascular Surgery; PCP Internal Medicine; Visit Provider Internal Medicine Pulmonary Disease | DX: J44.9 Chronic obstructive pulmonary disease, unspecified (principal); Z86.79 Personal history of other diseases of the circulatory system; E78.5 Hyperlipidemia, unspecified; F31.9 Bipolar disorder, unspecified | CPT/HCPCS: 99223 ==

== ENCOUNTER 2023-06-24 13:45 | Outpatient (AMB) | payer MEDICARE, SELFPAY ==
--- NOTE | 2023-06-24 13:47 | A.OFFVIS_ITS ---
Intake Intake Visit Reasons: Post op fem-fem bypass 06/09/23 Intake Note: Patient presents for post op for a fem-fem bypass that was performed on 06/09/23. Patient states he is feeling good and has no concerns. Accompanied by: Self / Same As Patient Allergies No Known Allergies Allergy (Verified 06/04/23 09:59) HPI Post op fem-fem bypass 06/09/23 HPI Details Very pleasant 67-year-old gentleman status post fem-fem bypass. Reports no postprocedure issues. Ambulating significantly better. Continues to smoke. Now for routine postprocedure follow-up. ON LICENSE OF [facility] Medical History RSV (respiratory syncytial virus infection) Personal history of nicotine dependence Abnormal CT scan, gallbladder (~02/2020) COPD (chronic obstructive pulmonary disease) Bacteremia (~02/2020) Bipolar 1 disorder Hyperlipemia Surgical History S/P aortogram History of skin graft Social History Household Members: Spouse Housing: House Are you a primary life care planner to a significant other at home: No Do you presently have visiting nurse or other home services: No Unable to assess alcohol history related to: Unable to respond Alcohol intake: never Comment: counts correct Patient Tobacco Use Status: Current everyday Tobacco user Tobacco use type: Cigarette Cigarette Packs Per Day: 2 Cigarettes Per Day: 40.0 Years Smoked: 10 e-Cigarette/Vaping Use: Currently Using Second Hand Smoke Exposure: Yes Substance Use Type: Marijuana Advance Directives Date on File: 02/26/23 service: No Current occupational status: retired Review of Systems Const All systems reviewed & are unremarkable except as noted in HPI and below Reports no additional complaints ENT Reports Normal hearing present Card Denies chest pain, Denies chest pain at rest, Denies chest pain with activity and Denies pedal edema Resp Denies cough GI Denies abdominal pain Musc Denies abnormal gait, Denies muscle cramps and Denies radiating pain into limb Skin/Breast Denies skin ulcer and Denies wounds Neuro Reports Normal hearing present and Denies abnormal gait Psych Reports no additional complaints Physical Exam Const General: cooperative, healthy appearing and comfortable Orientation/consciousness: oriented to person, oriented to place and oriented to time HEENT Head: Yes normal to inspection Neck Neck: Yes normal visual inspection Carotids: no bruits Chest Chest palpation & inspection: normal inspection of the chest Resp Effort & Inspection: normal respiratory effort and able to speak in complete sentences Auscultation: clear to auscultation bilaterally, no crackles, no rales, no rhonchi and no wheezes Cardio Rate: regular rate Rhythm: regular rhythm Heart sounds: S1 normal heart sound present and S2 normal heart sound present Bruits: no carotid bruits Peripheral pulses: Peripheral pulses 2+ throughout GI Inspection: Yes normal to inspection Skin Other: Bilateral groins well-healed. Noris removed. Wounds: no wounds Hair: normal Neuro General: oriented to person, oriented to place and oriented to time Cranial nerves: Yes CN's II-XII intact bilaterally and Yes Normal hearing present Cognition (Neuro): normal cognition Motor exam (neuro): 5/5 motor strength present throughout Extrem Other: venous exam: No significant superficial varicosities or spider telangiectas ias, minimal edema General: No clubbing, No cyanosis and No edema Psych Appearance: grossly normal Mental Status: mental status grossly normal Speech and movement: Normal speech and movement present Assessment & Plan Assessment & Plan (1) PAD (peripheral artery disease): Comment: 06/09/2023 - femoral to femoral bypass Code(s): I73.9 - Peripheral vascular disease, unspecified Plan: In short patient is doing extremely well status post fem-fem bypass. We did discuss risk factor modification in particular smoking cessation. In addition he should be maintained on aspirin and high-dose statin. We will schedule him for 3 month arterial surveillance follow-up. Should there be any interval issues happy to see him back sooner. Thank you for allowing us to assist in his care. Orders: Orders US MARÍA complete 3 Months I73.9 - Peripheral vascular disease, unspecified Coding Level of Care Code Est Pt Level 4 (30586) Diagnoses PAD (peripheral artery disease) I73.9
== END 2023-06-24 14:35 | disposition home or self-care (01) ==
PROVIDERS: PCP Internal Medicine; Visit Provider Surgery Vascular Surgery
DX: I73.9 Peripheral vascular disease, unspecified (principal)
CPT/HCPCS: 99024

== ENCOUNTER → 2023-06-24 13:45 | Outpatient (BNVA) | payer MEDICARE, SELFPAY | PROVIDERS: PCP Internal Medicine; Visit Provider Surgery Vascular Surgery | DX: I73.9 Peripheral vascular disease, unspecified (principal) | CPT/HCPCS: 99212 ==

== ENCOUNTER 2023-09-16 13:23 | Outpatient (REF) | payer MEDICARE, SELFPAY ==
--- NOTE | ~2023-09-16 | US_ITS ---
EXAMINATION: NONINVASIVE ASSESSMENT OF THE ARTERIES OF BOTH LOWER EXTREMITIES INCLUDING PVR EXAM AND BILATERAL LOWER EXTREMITY DUPLEX CLINICAL INFORMATION: Peripheral vascular disease COMPARISON: Angiogram with runoff 04/23/2023 TECHNIQUE: Ankle pulse volume recordings, ankle pressure measurements and ankle brachial indices were obtained of the lower extremity arterial system bilaterally in addition to duplex Doppler techniques with wave form analysis and measurement of velocities in the common femoral, profunda femoral, superficial femoral, popliteal, tibial and peroneal arteries. The study was performed only at rest. FINDINGS: RIGHT LEG 1. Right Ankle-Brachial Index: 0.8 (higher of the DP/PT) >0.97-1.25 = normal - no significant arterial disease 0.75-0.96 = mild peripheral arterial disease 0.5-0.74 = moderate peripheral arterial disease <0.50 = severe peripheral arterial disease <0.30 = critical arterial disease 2. Segmental Pressures (mmHg): Brachial: 113 Ankle: PT 100, DP 92 3. PVR Waveforms: Ankle: Biphasic 4. Direct Duplex: Common femoral artery: 163 cm/s, Multiphasic Profunda femoris artery: 91.4 cm/s, Multiphasic Superficial femoral artery (proximal): 158.8 cm/s, Multiphasic Superficial femoral artery (mid): 36.4 cm/s, Multiphasic Superficial femoral artery (distal): 33.3 cm/s, Multiphasic Popliteal artery: 27.3 cm/s, Biphasic Mid posterior tibial artery: 17 cm/s, Biphasic LEFT LE. Left Ankle-Brachial Index: 0.66 (higher of the DP/PT) >0.97-1.25 = normal - no significant arterial disease 0.75-0.96 = mild peripheral arterial disease 0.5-0.74 = moderate peripheral arterial disease <0.50 = severe peripheral arterial disease <0.30 = critical arterial disease 2. Segmental Pressures: Brachial: 125 Ankle: PT 82, DP 75 3. PVR Waveforms: Ankle: biphasic 4. Direct Duplex: Common femoral artery: 142.8 cm/s, Multiphasic Profunda femoris artery: 91.4 cm/s, Multiphasic Superficial femoral artery (proximal): 158.8 cm/s, Multiphasic Superficial femoral artery (mid): 36.4 cm/s, Multiphasic Superficial femoral artery (distal): 33.3 cm/s, Monophasic Popliteal artery: 27.3 cm/s, Monophasic Mid posterior tibial artery: 17 cm/s, Multiphasic Patent femoral to femoral artery bypass graft. US/US arterial duplex BI w/ MARÍA IMPRESSION: 1. Atherosclerotic plaque and elevated velocities in the proximal left SFA consistent with at least mild stenosis by velocity criteria. 2. Atherosclerotic plaque in the bilateral common femoral arteries causing at least mild stenoses by velocity criteria. 3. Abnormal ankle brachial indices bilaterally consistent with mild peripheral arterial disease on the right and moderate on the left.
== END 2023-09-16 13:24 | disposition home or self-care (01) ==
LOC: HO.US 13:23
PROVIDERS: PCP Internal Medicine; Visit Provider Surgery Vascular Surgery
DX: I73.9 Peripheral vascular disease, unspecified (principal)
CPT/HCPCS: 93922; 93925

== ENCOUNTER 2023-10-21 14:06 | Outpatient (AMB) | payer MEDICARE, SELFPAY ==
--- NOTE | 2023-10-21 14:18 | MHC.OFFVIS ---
Intake Visit Reasons: Three-month follow-up fem-fem bypass Intake Note: Patient presents for follow up ultrasound of fem-fem bypass and arterial US. Patient has no complaints. Allergies No Known Allergies Allergy (Verified 10/21/23 14:19) HPI HPI Three-month follow-up fem-fem bypass: Details: Very pleasant 68-year-old gentleman presents for follow-up status post fem-fem bypass. Reports that his lower extremities are doing significantly better. He is able to ambulate better. His biggest concern is shortness of breath related to his COPD. That is the major factor limiting his ambulation at the current time. Now presents for follow-up with noninvasive testing. [facility] Medical History RSV (respiratory syncytial virus infection) Personal history of nicotine dependence Abnormal CT scan, gallbladder (~02/2020) COPD (chronic obstructive pulmonary disease) Bacteremia (~02/2020) Bipolar 1 disorder Hyperlipemia Surgical History S/P aortogram History of skin graft Social History Household Members: Spouse Housing: House Are you a primary home health care coordinator to a significant other at home: No Do you presently have visiting nurse or other home services: No Unable to assess alcohol history related to: Unable to respond Alcohol intake: never Comment: counts correct Patient Tobacco Use Status: Current everyday Tobacco user Tobacco use type: Cigarette Cigarette Packs Per Day: 2 Cigarettes Per Day: 40.0 Years Smoked: 10 e-Cigarette/Vaping Use: Currently Using Second Hand Smoke Exposure: Yes Substance Use Type: Marijuana Advance Directives Date on File: 02/26/23 service: No Current occupational status: retired Review of Systems Const All systems reviewed & are unremarkable except as noted in HPI and below Reports no additional complaints ENT Reports Normal hearing present Card Denies chest pain, Denies chest pain at rest, Denies chest pain with activity and Denies pedal edema Resp Denies cough GI Denies abdominal pain Musc Denies abnormal gait, Denies muscle cramps and Denies radiating pain into limb Skin/Breast Denies skin ulcer and Denies wounds Neuro Reports Normal hearing present and Denies abnormal gait Psych Reports no additional complaints Physical Exam Const General: cooperative, healthy appearing and comfortable Orientation/consciousness: oriented to person, oriented to place and oriented to time HEENT Head: Yes normal to inspection Neck Neck: Yes normal visual inspection Carotids: no bruits Chest Chest palpation & inspection: normal inspection of the chest Resp Effort & Inspection: normal respiratory effort and able to speak in complete sentences Auscultation: clear to auscultation bilaterally, no crackles, no rales, no rhonchi and no wheezes Cardio Other: Bilateral DP signals Rate: regular rate Rhythm: regular rhythm Heart sounds: S1 normal heart sound present and S2 normal heart sound present Bruits: no carotid bruits Peripheral pulses: Peripheral pulses 2+ throughout GI Inspection: Yes normal to inspection Skin Wounds: no wounds Hair: normal Neuro General: oriented to person, oriented to place and oriented to time Cranial nerves: Yes CN's II-XII intact bilaterally and Yes Normal hearing present Cognition (Neuro): normal cognition Motor exam (neuro): 5/5 motor strength present throughout Extrem Other: venous exam: No significant superficial varicosities or spider telangiectasias, minimal edema General: No clubbing, No cyanosis and No edema Psych Appearance: grossly normal Mental Status: mental status grossly normal Speech and movement: Normal speech and movement present Results Reviewed Results Reviewed: Noninvasive arterial testing dated 09/16/2023 demonstrates MARÍA on the right of 0.8 and on the left of 0.66 with fem-fem bypass patent. Written report and images were reviewed Assessment & Plan Assessment & Plan (1) PAD (peripheral artery disease): Comment: 06/09/2023 - femoral to femoral bypass Code(s): I73.9 - Peripheral vascular disease, unspecified Category: Medical Plan: In short patient has stable claudication with patent fem-fem. I did review the pathophysiology of peripheral vascular disease with the patient. In addition we did discuss routine conservative measures including a healthy diet and the importance of exercise and ambulation. We did discuss risk factor modification. The patient will continue to to follow-up with surveillance follow-up in approximately 6 months. Thank you for allowing us to participate in this patient's care. If there are any questions or concerns please do not hesitate to contact us. Orders: Orders US arterial duplex LE BI 6 Months I73.9 - Peripheral vascular disease, unspecified Coding Level of Care Code Est Pt Level 4 (34469) Diagnoses PAD (peripheral artery disease) I73.9
== END 2023-10-21 14:46 | disposition home or self-care (01) ==
PROVIDERS: PCP Internal Medicine; Visit Provider Surgery Vascular Surgery
DX: I73.9 Peripheral vascular disease, unspecified (principal)
CPT/HCPCS: 99214

== ENCOUNTER → 2023-10-21 14:06 | Outpatient (BNVA) | payer MEDICARE, SELFPAY | PROVIDERS: PCP Internal Medicine; Visit Provider Surgery Vascular Surgery | DX: I73.9 Peripheral vascular disease, unspecified (principal) | CPT/HCPCS: 99212 ==

== ENCOUNTER 2023-10-22 09:20 | Outpatient (REF) | payer MEDICARE, SELFPAY ==
[2023-10-22 09:38] LABS: MANUAL DIFF FLAG NO
[2023-10-22 09:52] LABS: Basophils Absolute Auto 0.1 X10*3/uL (0.0-0.2); Basophils Percent Auto 0.8 % (0-2); Eosinophils Absolute Auto 0.1 X10*3/uL (0.0-0.4); Eosinophils Percent Auto 1.4 % (0-4); Hematocrit 49.1 % (42.0-52.0); Hemoglobin 17.1 g/dl (14.0-18.0); Imm Gran Abs Auto 0.02 X10*3/uL (0.00-0.03); Imm Gran Pct Auto 0.2 % (0.0-0.4); Lymphocytes Absolute Auto 3.9 X10*3/uL (1.2-4.9); Lymphocytes Percent Auto 39.4 % (20-40); Mean Corpuscular HGB Conc 34.8 g/dl (31.0-36.0); Mean Corpuscular Hemoglobin 32.1 pg (27.0-33.0); Mean Corpuscular Volume 92.3 fL (80.0-98.0); Mean Platelet Volume 9.4 fL (9.4-12.4); Monocytes Absolute Auto 0.9 X10*3/uL (0.1-1.2); Monocytes Percent Auto 8.6 % (2-11); Neutrophils Absolute Auto 4.9 x10*3/uL (2.0-8.3); Neutrophils Percent Auto 49.6 % (45-73); Platelet Count 228 X10*3/uL (160-400); Red Blood Count 5.32 X10*6/uL (4.60-5.80); Red Cell Distribution Width 15.6 % (11.0-16.0)
[2023-10-22 09:53] LABS: Ammonia 35 umol/L (13-55)
[2023-10-22 10:15] LABS: Alanine Aminotransferase 12 U/L (0-40); Albumin Level 3.8 g/dL (3.5-5.0); Alkaline Phosphatase 67 U/L (39-117); Anion Gap 14 (12-20); Aspartate Amino Transferase 32 U/L (5-37); Bilirubin Total 0.7 mg/dL (0.0-1.0); Blood Urea Nitrogen 9 mg/dL (9-16); Calcium 9.5 mg/dL (8.4-10.2); Carbon Dioxide 22 mmol/L (22-29); Chloride 101 mmol/L (96-108); Estimated Glomerular Filt Rate > 60; Glucose Random 88 mg/dL (60-115); Potassium 4.9 mmol/L (3.3-5.1); Sodium 132 mmol/L (135-145); Total Protein 7.4 g/dL (6.5-8.0)
[2023-10-22 10:16] LABS: Valproate 30.6 mcg/mL (50.0-100.0)
== END 2023-10-22 09:21 | disposition home or self-care (01) ==
LOC: HO.LAB 09:20
PROVIDERS: PCP Internal Medicine; Visit Provider Clinical Nurse Specialist Psychiatric/Mental Health, Adult
DX: F31.9 Bipolar disorder, unspecified (principal)
CPT/HCPCS: 36415; 80053; 80164; 82140; 85025

== ENCOUNTER 2024-01-07 06:13 | Outpatient (REF) | payer MEDICARE, SELFPAY ==
[2024-01-07 10:14] LABS: MANUAL DIFF FLAG NO
[2024-01-07 10:20] LABS: Basophils Absolute Auto 0.1 X10*3/uL (0.0-0.2); Basophils Percent Auto 0.7 % (0-2); Eosinophils Absolute Auto 0.2 X10*3/uL (0.0-0.4); Eosinophils Percent Auto 1.8 % (0-4); Hematocrit 48.9 % (42.0-52.0); Hemoglobin 16.7 g/dl (14.0-18.0); Imm Gran Abs Auto 0.01 X10*3/uL (0.00-0.03); Imm Gran Pct Auto 0.1 % (0.0-0.4); Lymphocytes Absolute Auto 2.9 X10*3/uL (1.2-4.9); Lymphocytes Percent Auto 33.4 % (20-40); Mean Corpuscular HGB Conc 34.2 g/dl (31.0-36.0); Mean Corpuscular Volume 93.7 fL (80.0-98.0); Mean Platelet Volume 10.4 fL (9.4-12.4); Monocytes Absolute Auto 0.7 X10*3/uL (0.1-1.2); Monocytes Percent Auto 7.8 % (2-11); Neutrophils Absolute Auto 4.8 x10*3/uL (2.0-8.3); Neutrophils Percent Auto 56.2 % (45-73); Platelet Count 244 X10*3/uL (160-400); Red Blood Count 5.22 X10*6/uL (4.60-5.80); Red Cell Distribution Width 14.7 % (11.0-16.0); White Blood Count 8.6 X10*3/uL (4.8-10.8)
[2024-01-07 10:58] LABS: Alanine Aminotransferase 13 U/L (0-40); Albumin Level 3.8 g/dL (3.5-5.0); Alkaline Phosphatase 69 U/L (39-117); Anion Gap 14 (12-20); Aspartate Amino Transferase 25 U/L (5-37); Bilirubin Total 0.4 mg/dL (0.0-1.0); Blood Urea Nitrogen 18 mg/dL (9-16); Calcium 9.6 mg/dL (8.4-10.2); Carbon Dioxide 25 mmol/L (22-29); Chloride 106 mmol/L (96-108); Cholesterol 148 mg/dL (<200); Estimated Glomerular Filt Rate > 60; Glucose Fasting 95 mg/dL (60-99); HDL Cholesterol 38 mg/dL (>40); LDL Cholesterol Calculated 95 mg/dL (<100); Potassium 4.4 mmol/L (3.3-5.1); Sodium 141 mmol/L (135-145); Triglycerides 76 mg/dL (<150)
[2024-01-07 11:16] LABS: Prostate Specific Antigen 0.47 ng/mL (<0.05-4.0)
== END 2024-01-07 06:14 | disposition home or self-care (01) ==
LOC: HO.HMGCLDS 06:13
PROVIDERS: PCP Internal Medicine; Visit Provider Internal Medicine
DX: R53.83 Other fatigue (principal); E78.5 Hyperlipidemia, unspecified; Z12.5 Encounter for screening for malignant neoplasm of prostate
CPT/HCPCS: 36415; 80053; 80061; 84153; 85025